=== PATIENT | male | born 1945 | race Caucasian/White ===

== ENCOUNTER 2019-03-24 19:16 | Observation (INO) | payer MEDICARE, OTHER, SELFPAY ==
[2019-03-24 19:43] VITALS: BP 111/80; PULSE 108; RESP 18; TEMP 36.6; O2SAT 99
--- NOTE | 2019-03-24 21:14 | ED.WEAKNESS ---
HPI - Weakness General Chief complaint: Weakness Stated complaint: weakness Time Seen by Provider: 03/24/19 21:14 Source: patient Mode of arrival: Wheelchair Limitations: no limitations History of Present Illness HPI Narrative: 73-year-old gentleman with diabetes and COPD with increasing weakness for the last week with multiple falls due to the global weakness. His daughter and grandchildren check on him regularly but he otherwise lives independently with home health care coming in. He notes multiple falls with left lower rib pain left knee has a bruise from a fall approximately 3 weeks ago left elbow has a large abrasion about a week old that has healed nicely without infection. He is not anticoagulated. It's unclear whether he has hit his head or not with any of these falls. He was seen on Thursday in urgent care they felt he was dehydrated but no additional imaging or diagnostic studies were performed. He has gotten significantly worse and has fallen at least 4 times today and is weak enough that he is having trouble eating sitting up in bed without assistance. Related Data Home Medications Medication Instructions Recorded Confirmed [FISH OIL] 1,000 mg PO BID #0 11/08/12 01/24/19 [MULTI VITAMIN] #0 11/08/12 01/24/19 atorvastatin [Lipitor] 20 mg PO HS #0 tab 11/08/12 01/24/19 naproxen sodium [Aleve] 220 mg PO PRN PRN #0 11/08/12 01/24/19 omeprazole 20 mg PO BID #0 09/18/16 01/24/19 vitamin B complex [B 1 tab PO QDAY #0 09/18/16 01/24/19 Complex-Vitamin B12] fluoxetine 10 mg capsule 10 mg PO DAILY 12/27/18 01/24/19 Allergies Allergy/AdvReac Type Severity Reaction Status Date / Time No Known Drug Allergies Allergy Unverified 01/24/19 14:14 fragrances Allergy Intermediate rash Uncoded 01/24/19 14:14 Review of Systems Review of Systems Narrative: Denies ? fever ? cold ? chills ? chest pain ? dyspnea ? orthopnea ? wheezing ? abdominal pain ? change to bowel or bladder habits ? nausea vomiting ? skin changes ? rashes He reports increasing global weakness, slight cough occasional sneeze, left lower rib pain with breathing, he has had a headache today which is highly unusual for him Patient History Medical History Chronic low back pain (Acute) Hypercholesterolemia (Acute) Hypertension (Acute) Major depressive disorder, single episode, severe without psychotic features (Acute) Surgical History History of bilateral knee replacement (Inactive) History of prostatectomy (Acute) Family History Father Cancer Alcohol abuse Social History marital status: details: 7 yrs ago number of children: 3 household members: none lives independently: Yes caregiver/support person: No housing: condominium pets and animals: No education level: high school 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. Grew up in an intact family. High school Education. 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 Smoking Status: Current every day smoker Substance Use Type: does not use Exam Narrative Exam Narrative: General: Frail appearing appearing, in no acute distress. Able to participate with history but most of the history is from his daughter. Well-nourished well-developed HEENT: Dry mucous membranes, normal sclera with reactive pupils, Neck: No JVD, supple Respiratory: Lungs are clear to auscultation, no wheezing no rales no rhonchi. Full and symmetrical air movement Cardiac: Regular rate and rhythm, loud harsh blowing holosystolic murmur 4/6, loudest along the left sternal border and radiating up to carotids and down into the abdomen no bruits Chest: Tender left lower ribs to palpation without bruising or palpable fracture Abdomen: Soft nontender good bowel tones, no flank pain Skin: Warm and dry, no rashes Neurologic: Grossly neurologically intact with no obvious asymmetries or abnormalities Extremities: well perfused, healing skin tear to the left elbow and forearm without infection. Healing bruise to left knee Psych: Cooperative Initial Vital Signs Initial Vital Signs: Vital Signs Temperature 97.9 F 03/24/19 19:43 Pulse Rate 108 H 03/24/19 19:43 Respiratory Rate 18 03/24/19 19:43 Blood Pressure 111/80 03/24/19 19:43 Pulse Oximetry 99 03/24/19 19:43 Course Orders Ordered: ED Orders 03/24/19 20:04 Complete Blood Count AUTO DIFF Stat Comprehensive Metabolic Panel Stat Magnesium Stat Troponin I Stat 03/24/19 22:02 CT head/brain wo con Stat Urinalysis and Microscopic Stat 03/24/19 22:37 XR ribs LT min 3V w CXR1V Stat 03/24/19 22:55 Blood Culture Stat Lactate (Lactic Acid) Stat Discontinued Medications Sodium Chloride (Normal Saline 0.9%) 1,000 mls @ 1,000 mls/hr IV BOLUS ONE Stop: 03/24/19 23:00 Last Infusion: 03/25/19 00:05 Dose: 0 mls/hr Documented by: Admin: 03/24/19 22:45 Dose: 1,000 mls/hr Documented by: ADRYAN Piperacillin/Tazobactam/Dextrose (Zosyn) 3.375 gm in 50 mls @ 100 mls/hr IV NOW ONE Stop: 03/24/19 23:07 Last Infusion: 03/25/19 00:00 Dose: 0 mls/hr Documented by: Admin: 03/24/19 23:26 Dose: 100 mls/hr Documented by: ADRYAN Sodium Chloride (Normal Saline 0.9%) 1,000 mls @ 1,000 mls/hr IV BOLUS ONE Stop: 03/25/19 03:46 Last Admin: 03/25/19 04:10 Dose: 1,000 mls/hr Documented by: JUSTYNA Vital Signs Vital signs: Vital Signs - 8 hr 03/24/19 21:49 03/24/19 22:29 03/24/19 23:10 Pulse Rate 90 101 H 95 H Respiratory Rate 16 22 22 Blood Pressure [Left Arm] 126/82 129/84 122/68 Pulse Oximetry 99 98 98 03/24/19 23:50 Pulse Rate 94 H Respiratory Rate 22 Blood Pressure [Left Arm] 117/77 Pulse Oximetry 96 MDM - Weakness Medical Records Attestation: I reviewed the patient's medical records. Lab Data Attestation: I reviewed the patient's lab results. Result diagrams: 03/24/19 20:04 03/24/19 20:04 Labs: Lab Results 03/24/19 03/24/19 03/24/19 Range/Units 20:04 20:04 22:55 WBC 12.3 H (4.5-11.0) X10^3/uL RBC 3.46 L (4.5-5.9) X10^6/uL Hgb 12.1 L (13.5-17.5) g/dL Hct 35.5 L (41-53) % MCV 102.8 H (80-100) fL MCH 35.1 H (26-34) PG MCHC 34.2 (30-36) % RDW 13.1 (11.6-14.8) % Plt Count 287 (150-400) X10^3/uL Neut % (Auto) 75.3 H (50-75) % Lymph % (Auto) 7.3 L (25-40) % [place] % (Auto) 16.8 H (3-14) % Eos % (Auto) 0.2 L (2-4) % Baso % (Auto) 0.4 (0-2) % Neut # (Auto) 9300 H (3566-3159) /uL Lymph # (Auto) 900 L (9408-4157) /uL [place] # (Auto) 2100 H (0-900) /uL Eos # (Auto) 0 (0-450) /uL Baso # (Auto) 0 (0-100) /uL Sodium 134 L (137-145) mmol/L Potassium 3.8 (3.4-5.1) mmol/L Chloride 95 L (98-107) mmol/L Carbon Dioxide 26 (22-32) mmol/L BUN 35 H (9-20) mg/dL Creatinine 1.60 H (0.66-1.25) mg/dL Estimated GFR 42.7 L (>60) mL/min BUN/Creatinine Ratio 21.9 (6-22) Glucose 126 H (80-110) mg/dL Lactate 1.0 (0.7-2.1) mmol/L Calcium 10.5 H (8.4-10.2) mg/dL Magnesium 1.4 L (1.6-2.3) mg/dL Total Bilirubin 0.6 (0.2-1.3) mg/dL AST 34 (17-59) IU/L ALT 43 (<50) IU/L Alkaline Phosphatase 65 (38-126) U/L Troponin I < 0.012 (0.01-0.034) ng/mL Total Protein 8.3 H (6.3-8.2) g/dL Albumin 4.4 (3.5-5.0) g/dL Globulin 3.9 (1.7-4.1) g/dL Albumin/Globulin Ratio 1.1 (1.0-2.8) Elevated white blood cell count 12.3 with left shift and significant bandemia Stable chronic renal insufficiency Mild hypo magnesemia at 1.4 Lactate of 1.0 Imaging Data Chest x-ray: Attestation: I personally reviewed and interpreted this imaging study as follows: My Impression: Chest x-ray does not suggest significant infiltrate or bacterial pneumonia. Cardiac silhouette is not significantly enlarged. Left-sided ribs 10 and 11 with fractures. No pneumothorax no hemothorax CT head: Radiologist Impression: per Dr Shlomo Edge No acute findings ECG Data Attestation: I personally reviewed and interpreted this ECG as follows: Interpretation: Normal sinus rhythm at a rate of [address] T wave changes. Normal axis normal intervals. [facility] Narrative Medical decision making narrative: 73-year-old gentleman presents with increasing weakness for the last week with multiple falls. With his significantly elevated white blood cell count and bandemia the probability of infection causing any overall weakness is significant. At this point the source of infection is unclear. Normal content cognitive function and no significant temperature as well as no nuchal rigidity or meningismus signs I do not suspect meningitis. There's no evidence of pneumonia or cellulitis. Unfortunately he did give us a urine sample but it was inadvertently discarded. We have been attempting to collect another urine sample. A straight cath was attempted and no urine was returned. An additional L of fluid will be given. At this point it has been 3 hours since antibiotics were given. He has a infection based on his elevated white count bandemia and increasing weakness of unknown origin. Has started broad-spectrum antibiotics. Probability of a urine source is high and we will continue to attempt to obtain a urine sample. He does need to be admitted and will contact the hospitalist services his primary care physician practices in [place]. He is otherwise hemodynamically stable without evidence of sepsis at this time. Discharge Plan Departure Patient Disposition: Admitted As Inpatient Clinical Impression: Weakness, Bandemia without diagnosis of specific infection Discharge Date/Time: 03/25/19 03:23 Admit Date/Time: 03/25/19 03:07 Admit Provider: Marcello Lucio
[2019-03-24 21:49] VITALS: BP 126/82; PULSE 90; RESP 16; O2SAT 99
--- NOTE | 2019-03-24 22:02 | DI.CT.S_ITS ---
PROCEDURE: CT HEAD/BRAIN WO CON INDICATIONS: Headache, increasing falls, trauma to head TECHNIQUE: Noncontrast 4.5 mm thick angled axial sections acquired from the foramen magnum to the vertex, with coronal and sagittal reformats. For radiation dose reduction, the following was used: automated exposure control, adjustment of mA and/or kV according to patient size. COMPARISON: None. FINDINGS: Image quality: Excellent. CSF spaces: Basal cisterns are patent. No extra-axial fluid collections. There is mild prominence of the ventricular system relative to prominence of the sulci reduced central line loss versus normal pressure hydrocephalus. Brain: No intracranial bleeds or masses. There is cerebral volume loss for age, with resultant ventricular and sulcal prominence. There are periventricular and deep white matter chronic small vessel ischemic changes. There is intracranial internal carotid artery and vertebral artery atherosclerosis. Skull and face: Calvarium and visualized facial bones appear intact, without suspicious lesions. Sinuses: Visualized sinuses and mastoids are clear. IMPRESSION: 1. No acute intracranial disease process. 2. Mild ventriculomegaly. Finding could be secondary to central volume loss versus normal pressure hydrocephalus. Please correlate with clinical data. Dictated by: Elva Moon MD, PhD on 03/25/2019 at 7:05 Approved by: Elva Moon MD, PhD on 03/25/2019 at 7:07
[2019-03-24 22:08] LABS: Add Manual Diff / Slide Review NO; Basophils Absolute Auto 0 /uL (0-100); Basophils Percent Auto 0.4 % (0-2); Eosinophils Absolute Auto 0 /uL (0-450); Eosinophils Percent Auto 0.2 % (2-4); Hematocrit 35.5 % (41-53); Hemoglobin 12.1 g/dL (13.5-17.5); Lymphocytes Absolute Auto 900 /uL (1100-4500); Lymphocytes Percent Auto 7.3 % (25-40); Mean Corpuscular HGB Conc 34.2 % (30-36); Mean Corpuscular Hemoglobin 35.1 PG (26-34); Mean Corpuscular Volume 102.8 fL (80-100); Monocytes Absolute Auto 2100 /uL (0-900); Monocytes Percent Auto 16.8 % (3-14); Neutrophils Absolute Auto 9300 /uL (1500-7000); Neutrophils Percent Auto 75.3 % (50-75); Platelet Count 287 X10^3/uL (150-400); Red Blood Cell Count 3.46 X10^6/uL (4.5-5.9); Red Cell Distribution Width 13.1 % (11.6-14.8); White Blood Cell Count 12.3 X10^3/uL (4.5-11.0)
[2019-03-24 22:14] LABS: Alanine Aminotransferase 43 IU/L (<50); Albumin 4.4 g/dL (3.5-5.0); Albumin Globulin Ratio 1.1 (1.0-2.8); Alkaline Phosphatase 65 U/L (38-126); Aspartate Aminotransferase 34 IU/L (17-59); BUN Creatinine Ratio 21.9 (6-22); Bilirubin Total 0.6 mg/dL (0.2-1.3); Blood Urea Nitrogen 35 mg/dL (9-20); Calcium 10.5 mg/dL (8.4-10.2); Carbon Dioxide 26 mmol/L (22-32); Chloride 95 mmol/L (98-107); Estimated Glomerular Filt Rate 42.7 mL/min (>60); Globulin 3.9 g/dL (1.7-4.1); Glucose 126 mg/dL (80-110); HEMOLYSIS < 15 (0-50); Magnesium 1.4 mg/dL (1.6-2.3); Potassium 3.8 mmol/L (3.4-5.1); Sodium 134 mmol/L (137-145); Total Protein 8.3 g/dL (6.3-8.2)
[2019-03-24 22:25] LABS: Troponin I < 0.012 ng/mL (0.01-0.034)
[2019-03-24 22:29] VITALS: BP 129/84; PULSE 101; RESP 22; O2SAT 98
--- NOTE | 2019-03-24 22:37 | DI.RAD.S_ITS ---
PROCEDURE: XR RIBS LT MIN 3V W CXR1V INDICATIONS: trauma, concern for sepsis TECHNIQUE: 2 views of the left ribs were acquired, along with a single view chest. COMPARISON: None. FINDINGS: Surgical changes and devices: None. Bones and chest wall: Mildly displaced, acute anterolateral left 11th rib fracture. Chronic appearing left sixth, seventh, eighth and 10th rib fractures noted. No suspicious bony lesions. Overlying soft tissues appear unremarkable. Lungs and pleura: No pleural effusions or pneumothorax. Lungs appear clear. Mediastinum: Mediastinal contours appear normal. Heart size is normal. IMPRESSION: Acute left 11th rib fracture. No acute cardiopulmonary disease process. Dictated by: Elva Moon MD, PhD on 03/25/2019 at 9:09 Approved by: Elva Moon MD, PhD on 03/25/2019 at 9:12
[2019-03-24] MEDS: SODIUM CHLORIDE 0.9% 1,000 ML 1000 ML IV (22:45)
[2019-03-24 23:10] VITALS: BP 122/68; PULSE 95; RESP 22; O2SAT 98
[2019-03-24] MEDS: PIPERACILLIN-TAZO 3.375 GM/50 ML FROZ.PIGGY IV (23:26)
[2019-03-24 23:50] VITALS: BP 117/77; PULSE 94; RESP 22; O2SAT 96
[2019-03-25] VITALS (11 sets, daily range): BP systolic 63–138; BP diastolic 44–76; PULSE 72–95; RESP 16–25; TEMP 36.2–37.4; O2SAT 94–99; BMI 27.4; BMI 25.5
--- NOTE | 2019-03-25 01:50 | PC.NURSE ---
Pt now reporting 7/10 pain ribs and back, 4/10 pain bilateral knees.
[2019-03-25] MEDS: SODIUM CHLORIDE 0.9% 1,000 ML 1000 ML IV (04:10)
--- NOTE | 2019-03-25 05:18 | P.HP_ITS ---
History of Present Illness History of Present Illness Date Patient Seen: 03/25/19 Time Patient Seen: 05:22 Chief complaint: weakness Narrative: Patient with PMH of HTN, DM 2T (diet controlled), neuropathy, GERD, prostate cancer (s/p prostatectomy, no chemo/radiation) Patient presented to the ED on 03/24/2019 out of concern for generalized weakness. The patient is unable to exactly note when symptoms have started. Reports associated symptoms of increased fatigue, exertional dyspnea, dizziness (especially with position change or with sudden turns), bilateral lower extremity weakness, and gait instability. Patient is known to have a lifelong history moderate to heavy ETOH use, most recently reports drinking 3 glasses of whiskey and 1-2 beers per day. Reports last drink on one week ago. Denies prior history of EtOH withdraw or seizures. Patient's diabetes is diet controlled. Reports using an antihypertensive agent (cannot recall name), which he stopped 3 days ago due to low blood pressure that was noted by nurse that comes to patient's house. Patient denies fever and chills, upper respiratory symptoms, chest pain, palpitations, syncopal events, abdominal pain, gastrointestinal distress, generalized myopathy or malaise. He has had a number of recurrent falls, which he is unable to quantify. He does note his falls to be frequent. They typ ically occur because his legs give out while he walks. Also reports falling while turning when in upright position or when changing positions due to dizziness and lightheadedness. Patient denies syncopal events. He reports being down at times for as long as 1 hour before he can get up. Patient reports good appetite and denies change in weight. He is constipated. He does have difficulty with urination and BPH symptoms. He denies history of recurrent UTIs. Currently complains of pain in his left lateral torso, lumbar spine, and bilateral feet. Has been using Tylenol for pain relief. Denies use of NSAIDs. ED Presentation & Work-Up VS. T 97.9F BP 111/80 HR 108 RR 18 SpO2 99% Labs, 03/24/182003 WBC 12.3 lactate 1.0 HGB 12.1 PLT 287 NA 134 K 3.8 mg 1.4 Cl 95 Ca 10.5 Alb 4.4 GLU 126 CO2 26 BUN 35 CR 1.6 GFR 42.7 T. BILI 0.6 AST 34 ALT 43 ALP 65 Trop < 0.012 Blood Cx collected in ED Received 2L NS bolus and Zosyn Patient History Medical History (Updated 03/25/19 @ 06:29 by JOSE ANGEL Luz) Alcohol dependence (Chronic) Chronic low back pain (Chronic) Hypercholesterolemia (Chronic) Hypertension (Chronic) Major depressive disorder, single episode, 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) Surgical History History of bilateral knee replacement (Inactive) History of prostatectomy (Acute) Family & Social History Family History Father Cancer Alcohol abuse Social History: household members Lives independently; however, grandson lives in a space below him. Prior Living Arrangements Apartment/Condo lives independently Yes caregiver/support person No Safety & Behavioral: Feels Safe in Current Yes Environment Been Physically Hurt or No Threatened By a Person Suicidal Ideation Description None Suicide Plan Description No Plan Tobacco & Substance use: Tobacco type cigars 2 daily, denies cigarette use Smoking Status Current every day smoker alcohol intake Lifelong, moderate to have a pattern of alcohol dependence. Currently drinks 3 glasses of whiskey and 1-2 beers daily by report. alcohol intake frequency 0-2 drinks per day Substance Use Type Uses MJ and CBD Meds Home Medications and Allergies Home Medications Medication Instructions Recorded Confirmed Type [FISH OIL] 1,000 mg PO BID #0 11/08/12 03/25/19 History [MULTI VITAMIN] #0 11/08/12 01/24/19 History atorvastatin [Lipitor] 20 mg PO HS #0 tab 11/08/12 03/25/19 History naproxen sodium [Aleve] 220 mg PO PRN PRN #0 11/08/12 03/25/19 History omeprazole 20 mg PO BID #0 09/18/16 03/25/19 History vitamin B complex [B 1 tab PO QDAY #0 09/18/16 03/25/19 History Complex-Vitamin B12] fluoxetine 10 mg capsule 20 mg PO DAILY 12/27/18 03/25/19 History Allergies Allergy/AdvReac Type Severity Reaction Status Date / Time No Known Drug Allergies Allergy Unverified 01/24/19 14:14 fragrances Allergy Intermediate rash Uncoded 11/25/19 14:14 Review of Systems Review of Systems ROS Unobtainable: All systems reviewed & are unremarkable except as noted in HPI and below Exam Vital Signs (past 8 hours): - 03/24/19 21:49 03/24/19 22:29 03/24/19 23:10 Temperature Pulse Rate 90 101 H 95 H Respiratory Rate 16 22 22 Blood Pressure Blood Pressure [Left Arm] 126/82 129/84 122/68 Pulse Oximetry 99 98 98 03/24/19 23:50 03/25/19 03:22 03/25/19 03:45 Temperature 98.4 F Pulse Rate 94 H 80 85 Respiratory Rate 22 25 H 18 Blood Pressure 123/63 119/76 Blood Pressure [Left Arm] 117/77 Pulse Oximetry 96 95 95 Oxygen Delivery Method Room Air Oxygen Flow Rate 0 Narrative Exam Narrative: Constitutional: NAD Neurologic: AOx3, no focal neurological deficits Head: NC, AT Eyes: PERRL, EOMI, no scleral icterus Ears: external ears normal, no otorrhea Nose: external nose normal, no rhinorrhea or epistaxis Throat: Dry MM, oropharynx w/o exudate Neck: no masses, lymphadenopathy, or JVD Chest / Respiratory: CTAB, diminished bases, on room air. No dyspnea or tachypnea at rest left lateral torso, rib level 9 to 10 + pain Heart / CV: S1S2, + murmur Abdomen / GI: round, NT, ND, + BS, no organomegaly : no suprapubic tenderness, no CVA Peripheral / Vascular: warm to touch, diminished DP pulse, no edema, sensation intact Musc: full ROM of upper and lower extremities, slight right foot drop Skin: multiple areas of ecchymoses on upper and lower extremities a different stages of healing Objective Labs Result Diagrams: 03/24/19 20:04 03/24/19 20:04 Labs: Laboratory Results - last 24 hr 03/24/19 03/24/19 03/24/19 20:04 20:04 22:55 WBC 12.3 H RBC 3.46 L Hgb 12.1 L Hct 35.5 L MCV 102.8 H MCH 35.1 H MCHC 34.2 RDW 13.1 Plt Count 287 Neut % (Auto) 75.3 H Lymph % (Auto) 7.3 L [place] % (Auto) 16.8 H Eos % (Auto) 0.2 L Baso % (Auto) 0.4 Neut # (Auto) 9300 H Lymph # (Auto) 900 L [place] # (Auto) 2100 H Eos # (Auto) 0 Baso # (Auto) 0 Sodium 134 L Potassium 3.8 Chloride 95 L Carbon Dioxide 26 BUN 35 H Creatinine 1.60 H Estimated GFR 42.7 L BUN/Creatinine Ratio 21.9 Glucose 126 H Lactate 1.0 Calcium 10.5 H Magnesium 1.4 L Total Bilirubin 0.6 AST 34 ALT 43 Alkaline Phosphatase 65 Troponin I < 0.012 Total Protein 8.3 H Albumin 4.4 Globulin 3.9 Albumin/Globulin Ratio 1.1 Assessment & Plan Assessment & Plan narrative: Patient is being admitted under observation status for generalized weakness. Generalized weakness, chronic condition, present on admission, active - Suspected to be multifactorial, in the setting of profound hypovolemia, orthostasis, anemia and ongoing ETOH use - Check CK level - IV fluids - Check orthostatic vitals - PT eval and treat Left rib fractures (ribs 9-10), acute, present on admission, active - CXR, final read pending - Incentive spirometer - Pain control: tylenol, lidocaine patch - Exertional dyspnea, not entirely clear if related to rib fracture, + murmur, may need to consider echo Macrocytic anemia, chronicity is not known, present on admission, active - Chronicity is not known, however suspected to be chronic, progressive in the setting of chronic ETOH use - Check iron studies, B12 and folate - No signs of active blood loss Hypovolemia, present on admission, active - Received 2L of IVF in ED Leukocytosis with bandemia, acute, present on admission, active - Patient was treated with Zosyn 3.375 x1 - Bands are not the most specific indicator of an infection, can also be elevated 2/2 seizure, toxic ingestions, metabolic abnormalities, inflammatory processes, and tissue damage Mild leukocytosis, no overt SIRS, lactate WNL. No specific organ dysfunction, hemodynamic decompensation or cognitive impairment. Will check PCT level. - Hold further antibiotics at this time - Blood cx collected in ED, results pending, to be followed - UA UDS Alcohol abuse, chronic condition, present on admission, active - No active symptoms of EtOH withdraw - Last reported drink 1 week ago - Will check ETOH level and UDS - Banana bag today - Started on MTW / Thiamine / Folate orally 03/26 - Replete electrolytes accordingly - Alcohol cessation strongly recommended Hypomagnesemia, likely chronic, present on admission, active - Suspected to be a sequela have ETOH use - Will received 2 g of magnesium in the banana bag infusion - Repeat magnesium in am, replete accordingly CKD III, chronic condition, present on admission, active - Baseline renal function is not known, records show Cr of 1.7 in 2017 - Repeat labs this am, patient has received 2L NS bolus in ED DNR. Designates his daughter, Jennifer, as a surrogate decision maker. Patient is unable to recall exact names of home medications, the list will be brought in this morning by his daughter. Order to verify patient's home med list in chart. VTE prophylaxis w/ SCDs Quality VTE Deep Vein Thrombosis/Pulmonary Embolism Present on Admission: No
--- NOTE | 2019-03-25 05:31 | PC.ADMIT ---
Safe hand off from ED. Patient arrived on unit via stretcher, and a slider board was used to transfer to the bed at 0345. Patient is AxOx3, complains of pain 4/10 in bilateral lower extremities, per patient, he has neuropathy. VSS, lung sounds clear bilaterally, patient has intermittent non productive cough and states he smokes 2 small cigars per day. Patient also complains of pain in ribs and back 6/10. When patient arrived on unit, skin check was done and documented, patient was found to be incontinent of stool. Patient said this has been happening for the last month, he thinks he needs to pass gas and passes stool also. Patient is very weak. Tried to get urine sample but patient could not urinate after 1 liter of fluid. Marcello notified. [address] Admission Note: The patient,Raymundo Oliver,73 y/o, was given written information regarding hospital policies, unit procedures and contact persons. Patient's smoking status: Current every day smoker. Vital Signs - 8 hr 03/24/19 21:49 03/24/19 22:29 03/24/19 23:10 Temperature Pulse Rate 90 101 H 95 H Respiratory Rate 16 22 22 Blood Pressure Blood Pressure [Left Arm] 126/82 129/84 122/68 Pulse Oximetry 99 98 98 03/24/19 23:50 03/25/19 03:22 03/25/19 03:45 Temperature 98.4 F Pulse Rate 94 H 80 85 Respiratory Rate 22 25 H 18 Blood Pressure 123/63 119/76 Blood Pressure [Left Arm] 117/77 Pulse Oximetry 96 95 95
[2019-03-25 05:52] LABS: Creatine Kinase 28 U/L (55-170)
[2019-03-25 06:04] LABS: Procalcitonin 0.21 ng/mL (<0.5)
[2019-03-25 06:20] LABS: RBC Urine None Seen (0-5/HPF)
[2019-03-25 06:23] LABS: Appearance Urine UA CLEAR; Bilirubin Urine UA NEGATIVE (NEGATIVE); Color Urine UA YELLOW; Glucose Urine UA NEGATIVE (Negative); Ketones Urine UA NEGATIVE (NEGATIVE); Leukocyte Esterase Urine UA NEGATIVE (NEGATIVE); Nitrite Urine UA NEGATIVE (Negative); Occult Blood Urine UA NEGATIVE (Negative); Protein Urine UA NEGATIVE (Negative); Urobilinogen Urine UA 0.2 E.U./dL (0.2)
[2019-03-25 06:29] LABS: Squamous Epithelial Cell Urine 0-1 /HPF (0-5/HPF); WBC Urine 0-1/HPF (0-5/HPF)
[2019-03-25 06:30] LABS: Bacteria Urine Occasional (0-1); Culture Indicated Urine Cult Not Indicated
[2019-03-25 07:15] LABS: Ur Creatinine Normal (Normal); Ur Specific Gravity Normal (Normal); Urine pH Normal (Normal)
[2019-03-25 07:16] LABS: UR Morphine/Opiate cutoff 300 Negative (Negative); Urine Amphetamines Negative (Negative); Urine Barbiturates Negative (Negative); Urine Benzodiazepines Negative (Negative); Urine Cocaine Negative (Negative); Urine MDMA Negative (Negative); Urine Methadone Negative (Negative); Urine Methamphetamines Negative (Negative); Urine Oxycodone Negative (Negative); Urine Phencyclidine Negative (Negative); Urine Tetrahydrocannabinol Positive (Negative); Urine Tricyclic Antidepressant Negative (Negative)
[2019-03-25 07:35] LABS: Add Manual Diff / Slide Review NO; Basophils Absolute Auto 100 /uL (0-100); Basophils Percent Auto 0.5 % (0-2); Eosinophils Absolute Auto 100 /uL (0-450); Eosinophils Percent Auto 0.5 % (2-4); Hematocrit 32.2 % (41-53); Lymphocytes Absolute Auto 1200 /uL (1100-4500); Lymphocytes Percent Auto 10.8 % (25-40); Mean Corpuscular HGB Conc 34.2 % (30-36); Mean Corpuscular Hemoglobin 34.9 PG (26-34); Mean Corpuscular Volume 101.9 fL (80-100); Monocytes Absolute Auto 1900 /uL (0-900); Monocytes Percent Auto 17.7 % (3-14); Neutrophils Absolute Auto 7700 /uL (1500-7000); Neutrophils Percent Auto 70.5 % (50-75); Platelet Count 263 X10^3/uL (150-400); Red Blood Cell Count 3.16 X10^6/uL (4.5-5.9); Red Cell Distribution Width 13.2 % (11.6-14.8)
[2019-03-25 07:48] LABS: Magnesium 1.4 mg/dL (1.6-2.3)
[2019-03-25 07:49] LABS: Alanine Aminotransferase 31 IU/L (<50); Albumin 3.6 g/dL (3.5-5.0); Alkaline Phosphatase 51 U/L (38-126); Aspartate Aminotransferase 24 IU/L (17-59); BUN Creatinine Ratio 23.3 (6-22); Bilirubin Total 0.6 mg/dL (0.2-1.3); Blood Urea Nitrogen 28 mg/dL (9-20); Calcium 9.2 mg/dL (8.4-10.2); Carbon Dioxide 22 mmol/L (22-32); Chloride 102 mmol/L (98-107); Estimated Glomerular Filt Rate 59.5 mL/min (>60); Globulin 3.6 g/dL (1.7-4.1); Glucose 92 mg/dL (80-110); HEMOLYSIS < 15 (0-50); Potassium 3.4 mmol/L (3.4-5.1); Sodium 135 mmol/L (137-145); Total Protein 7.2 g/dL (6.3-8.2)
[2019-03-25] MEDS: ACETAMINOPHEN 325 MG TABLET 650 MG PO ×2 (07:50→14:19)
[2019-03-25] MEDS: LIDOCAINE PATCH 1 EACH ADH..PATCH TOP (07:50)
[2019-03-25 07:53] LABS: Ethanol (ETOH) < 10 mg/dL
[2019-03-25] MEDS: OXYCODONE IR 5 MG TABLET PO ×2 (09:09→20:47)
[2019-03-25] MEDS: [UNRECOGNIZED DRUG - OTHER] IV (09:10)
[2019-03-25] MEDS: MAGNESIUM SULFATE IV (09:10)
[2019-03-25] MEDS: FOLIC ACID IV (09:10)
[2019-03-25] MEDS: MULTIVITAMIN IV (09:10)
[2019-03-25] MEDS: THIAMINE IV (09:10)
--- NOTE | 2019-03-25 12:09 | PT.IIE ---
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 No deficits noted except GRAYLING Mobility and Gait Pt uses FWW at home at all times since Nov 2018. Pt reports he has ongoing weakness for the past few months and has had home health PT to improve his mobility and stregnth since this Mar. Pt stated he was progressing very well with endurance and mobility and able to amb within home slowly, but somehow he got weaker and unable to mobilize since 03/16. Activities of Daily Living and IADL's Pt is mostly home bound. Was able to do ADLs with FWW independently. He is not driving and dtrs and her family assisted in house cleaning, grocery shopping and MD appts. Prior Functional Level (Other details) Pt has multiple falls within the past year. Social History Household Members none Living Arrangements Apartment/Condo Number of Floors (Floors) One Floor Number of Stairs To Enter/Railing? 2 CELESTINA with B rails + door threshold. Home Environment Standard Height Toilet,Walk in Shower Home Equipment Front Wheel Walker,Four Wheel Walker,Manual Wheelchair,Tub Transfer Bench,Grab Bars Near Toilet,Grab Bars In Shower Employment Status Retired Additional Social History Comment Patient is known to have a lifelong history moderate to heavy ETOH use, most recently reports drinking 3 glasses of whiskey and 1-2 beers per day. Reports last drink on one week ago. Pt lives alone in [place] and his grandson lives in a space below him. Pt has dtr and her family live closeby. M2 PT-IP Current Condition Start: 03/25/19 09:07 Freq: NEEDED Status: Active Protocol: Document 03/25/19 10:45 HH (Rec: 03/25/19 12:09 [email or web address]) Physical Therapy Current Condition Current Condition Evaluation Date 03/25/19 Treatment Diagnosis Acute left 11th rib fracture s /p fall, generalized weakness Onset Date a week ago Weight Bearing Status Weight Bearing Status Weight Bear as Tolerated M3 PT-IP Subjective Start: 03/25/19 09:07 Freq: NEEDED Status: Active Protocol: Document 03/25/19 10:45 HH (Rec: 03/25/19 12:09 [email or web address]) Subjective Physical Therapy Visit Type Type Initial Evaluation Visit Start Time 10:45 Visit Stop Time 10:32 Total Visit Minutes 47 Notes Pt's dtr Jennifer at bedside. Number of [facility] FAMILY MEMBER Visits 0 Physical Therapy Visit Comments Patient Comments My legs start to feel better and a little bit stronger. Patient Goals To get stronger before going home. Therapy Pain Assessment Pain When Pain Assessed During Mobility Pain Present Pain Present Pain Reported Location Bilateral Lower Leg Intensity 3 Scale Used Numeric (1 - 10) Description Acute Pain Behaviors Facial Grimacing Pain Management Techniques Timing of Activity with Medications M4 PT-IP Mobility and Gait Start: 03/25/19 09:07 Freq: NEEDED Status: Active Protocol: Document 03/25/19 10:45 HH (Rec: 03/25/19 12:09 [email or web address]) PT-Bed Mobility Assessment Supine to Sit Supine to Sit Contact Guard Assistance, Bedrails Scooting Scooting to Edge of Bed Contact Guard Assistance PT-Transfer Assessment Sit to and From Stand Sit to and from Stand Minimal Assistance,Moderate Assistance Equipment Transfer Assistive Device Gait Belt,Front Wheeled Walker Orthotic/Prosthetic Devices or Brace: No Transfers Transfer Destination Bed,Chair Transfer Technique amb with FWW Transfer Ability Level of Assist Minimal Assistance Comments Mobility Comments Pt was up in bed comfortably upon assessment. BP at 130s/ 70s HR80 s. Pt agreed to mobilize with PT. He completed supine to long sit and slowly pivot himself towards R side of EOB by using bed rails. Pt has difficulty scooting towards EOB and needed chair armrest to pull and unweight himself. He then stood up with mod A with gait belt at chest level. BP at 76/52 and pt reports lightheaded and weakness at B LEs. Pt completed stand step pivot to bedside chair but needed cues for walker management and hand placements on armrest for stand to sit. His BP went back to 148/73 HR 93 within 2 mins . Pt stood up again with min A this time and able to amb to BSC next to sink counter for toileting. Pt was able to bend down and brief management followed by stand to sit on it . BP at 63/44 HR 95 post ambulation but asymptomatic. He then stood up and amb back to his bedside chair with min A x 1. BP at 100/71 after 2 mins of rest and pt did appear SOB and fatigue after but he stated he feels fine. Call light within reach and educated pt to notify nursing staff for mobility. Gait Assessment Gait Gait Assistance Required: Minimum Assistance Distance (Feet) 8 Able to Maintain Weight Bearing Status Yes During Gait Assistive Devices Assistive Device Gait Belt,Front Wheeled Walker Orthotic/Prosthetic Devices or Brace: No Gait Deviations General Gait Pattern Decreased Stride Length, Decreased Feet Clearance, Flexed Trunk,Step-to Gait Factors Limiting Gait Function Factors Limiting Gait Function Decreased Activity Tolerance, Decreased Strength,Limited Range of Motion,Pain,Poor Balance,Poor Safety Awareness, Respiratory Distress Comments Gait Comments see mobility comment. pt amb with a step to gait with FWW slowly, along with decreased feet clearance and stride length. Stair Climbing Assessment Comments Stair Climbing Comments unable to assess PT-Balance Assessment Sitting Balance and Reactions Static Sitting Balance Ability Normal Dynamic Sitting Balance Ability Normal Standing Balance and Reactions Static Standing Balance Ability Good Dynamic Standing Balance Ability Fair Device Used FWW M5 PT-IP Objective Assessments Start: 03/25/19 09:07 Freq: NEEDED Status: Active Protocol: Document 03/25/19 10:45 (Rec: 03/25/19 12:09 [email or web address]) Orientation Orientation/Cognition Level of Alertness Alert Orientation Name,Age,Birthday,Month,Date, Year,Day of Week,Place, Situation Language Function Ability No Deficits Noted Safety Awareness Understands Safety Issues Memory Description No Deficits Noted Gross Range of Motion Upper Extremity ROM Assessment Within Functional Limits Lower Extremity ROM Assessment Within Functional Limits Strength Upper Extremity Strength Assessment Within Functional Limits Lower Extremity Strength Assessment Bilaterally Impaired Hip 3+/5 Knee 3/5 Ankle 3/5 Coordination Assessment Gross Coordination Gross Coordination WNL Sensation Assessment Sensation Gross Sensation Right LE Impaired,Left LE Impaired Light Touch Intact Proprioception (Position) Intact Comments Sensation Comments poor sensation noted to LT/ pressure at bottom of both feet and upper thighs. Muscle Tone Muscle Tone WNL Yes M6 PT-IP Treatment Start: 03/25/19 09:07 Freq: NEEDED Status: Active Protocol: Document 03/25/19 10:45 HH (Rec: 03/25/19 12:09 [email or web address]) Physical Therapy Treatment Exercises Exercises Ankle Pumps,Gluteal Sets,Quad Sets Education Education Provided Safety M7 PT-IP Assessment and Plan Start: 03/25/19 09:07 Freq: NEEDED Status: Active Protocol: Document 03/25/19 10:45 HH (Rec: 03/25/19 12:09 [email or web address]) PT Summary Assessment and Plan Potential Rehabilitation Potential Good Status of Condition at Evaluation Evolving Summary Impairments Pain,ROM,Strength,Balance, Sensation,Bed Mobility, Transfers,Gait,Activity Tolerance Assessment Summary Pt is a mod complexity admitted to for L 11th rib fx s/p fall and ongoing weakness. Etiologis is till unknown. Upon assessment, pt presents significant OHTN with postional changes (check mobility comments) but c/o minimal lightheadedness. Pt's Sat maintained >95% and HR appears to be at safe range. Pt currently has very low endurance who can only tolerate amb from bed to BSC and returned to chair with overall min A. In addition, pt lives alone with extensive hx of falls which will be very unsafe for him to be d/c home at this point. Dis with dtnoah Rodriguez and pt regarding skilled rehab to improve his mobility and strength once he is medically stable to be d/c Goals Bed Mobility Goal Contact Guard Assistance Transfer Goal Contact Guard Assistance,Front Wheeled Walker Gait Goal Contact Guard Assistance,Front Wheel Walker Gait Distance 50 Other Goals stair climbing x 3 with B rails + threhold if he goes home. Days to Meet Goals 5 Frequency of Treatment Frequency Of Treatment Once a Day Treatment Plan Physical Therapy Treatment Plan Bed Mobility Training,Transfer Training,Gait Training, Therapeutic Exercise,Balance Retraining,Discharge Planning, Hot or Cold Pack,Neuromuscular Re-ed Other Recommendations and Next Treatment transfers, bed mob, gait Focus training as anju CHECK OHTN Recommendations To Nursing Amount of Assist Needed 1 Person Assist Discharge Recommendations PT Discharge Recommendations SNF Rehab Transportation Needs at Discharge Wheelchair/Cabulance
--- NOTE | 2019-03-25 14:13 | DI.ECHO.S_ITS ---
[facility] +---------+ [facility] +---------+ : : [address] : : : : [id number] : : : : Phone: [phone]---------+ Echocardiogram Report + + :Name: MARIA LUZ WOLFF Study Date: 03/26/2019 Height: 66 in : :[facility] Weight: 158 lb : : Gender: Male BSA: 1.8 m2 : :: 1945 Age: 73 yrs BP: 101/66 mmHg: :Reason For Study: MURMUR : :Ordering Physician: Debo : :Hospitalist Performed By: Shukri Cobian : :Referring: KAUSHIK VOGEL : + + Interpretation Summary 1) Mild-moderate left ventricular hypertrophy (concentric) with normal left ventricular size, normal wall motion, and normal systolic function (EF 60- 65%). 2) Normal right ventricular size and function. 3) There is early severe aortic stenosis (mean gradient 38mmHg, valve area 0.96 cm2). Correlate clinically. 4) No prior Echo available for comparison. Recommend cardiology consult (outpatient acceptable if no or stable symptoms related to aortic stenosis). Procedure: A two-dimensional transthoracic echocardiogram with color flow and Doppler was performed. The study quality was technically difficult. There is no prior echocardiogram noted for this patient. Left Ventricle: The left ventricle is normal in size. There is mild-moderate concentric left ventricular hypertrophy. Left ventricular systolic function is normal. The ejection fraction is estimated to be 60-65%. Left ventricular wall motion is normal. Right Ventricle: The right ventricle is normal in size and function. Atria: There is mild biatrial enlargement. The interatrial septum is intact with no evidence for an atrial septal defect. Mitral Valve: The mitral valve leaflets appear mildly thickened, but open well. The mitral valve leaflets are mildly calcified. There is mild mitral annular calcification. There is no mitral regurgitation noted. Aortic Valve: The aortic valve is moderately calcified. The calculated aortic valve area is 0.96 cm2. The peak aortic velocity is 3.93 m/sec. The aortic valve mean gradient is 38 mmHg. There is severe aortic stenosis. No aortic regurgitation is present. Tricuspid Valve: The tricuspid valve is normal in structure and function. There is trace tricuspid regurgitation. The right ventricular systolic pressure is estimated to be at least 26 mmHg based on an estimated right atrial pressure of 8 mm Hg. Pulmonic Valve: The pulmonic valve is not well visualized. Great Vessels: The aortic root is normal size. The dimensions of the ascending aorta are normal. The pulmonary artery is normal size. The IVC is dilated (diameter is greater than 2.1 cm) yet it collapses greater than 50% with a sniff. This suggests a right atrial pressure of 8 mm Hg. Pericardium/ Pleura There is no pericardial effusion. There is no pleural effusion. MMode/2D Measurements & Calculations LVIDd: 4.5 cm LVOT diam: 2.1 cm LVIDs: 3.1 cm Ao root diam: 3.0 cm FS: 29.8 % IVSd: 1.4 cm LVPWd: 1.4 cm LV gentile. diameter/BSA (cm/m^2): 2.5 LV sys. diameter/BSA (cm/m^2): 1.7 LA A2 area: 20.3 cm2 RA long axis: 5.1 cm LA A4 area: 23.9 cm2 RA area: 17.8 cm2 LA length (vol): 6.1 cm RA vol: 53.0 ml LA vol: 68.1 ml RA : 29.3 ml/m2 LA vol index: 37.6 ml/m2 TAPSE: 2.2 cm Doppler Measurements & Calculations Ao V2 max: 392.6 cm/sec LVOT Max Toro: 109.4 cm/sec Ao V2 mean: 272.0 cm/sec LV V1 max P.8 mmHg Ao max P.7 mmHg LV V1 VTI: 24.3 cm Ao mean P.2 mmHg EDVIN(I,D): 1.0 cm2 Ao V2 VTI: 81.3 cm EDVIN(V,D): 0.96 cm2 sev ratio: 0.30 EDVIN indexed to BSA (cm^2/m^2): 0.57 MV E max toro: 75.2 cm/sec TR max toro: 212.3 cm/sec MV A max toro: 98.1 cm/sec TR max P.0 mmHg MV E/A: 0.77 Med Peak E' Toro: 6.4 cm/sec E/E' med: 11.7 Lat Peak E' Toro: 8.4 cm/sec E/E' lat: 8.9 E/e' average: 10.3 MV dec time: 0.20 sec SV(LVOT): 83.8 ml Reading Physician:01:24 PM
--- NOTE | 2019-03-25 15:06 | DIET.PN ---
Dietary Progress Note Assessment: 73y M admitted for weakness, frequent falls with hx of heavy etoh use, HTN, DM2 controlled c diet, and GERD referred to nutrition for weakness. Pt reports he has someone go out to get his groceries, has a friend make him homemade soups. Pt cannot stand at counter for more than a few minutes at a time r/t weakness, unsteadiness. Expresses concern with difficulty preparing own meals for adequate intake. Usual intake: B: 2 eggs, toast D: homemade soup Pt does not snack and tends to drink water, vitamin water, apple cider vinegar in tomato juice in addition to etoh (a few glasses of whiskey and beer). *Pt wt history is 79kg, weights this visit vary from 71kg to 77kg, please reweight pt for accurate number to assess any unintentional wt loss. HT: 167.6cm WT: 71.7kg (unknown if accurate, please reweight pt) BMI: 25.5 Labs:Mg 1.4 L, TCK 28 L MNA: 11 at risk Sammy: 18 Nutrition Diagnosis: difficulty with self management of diet r/t pt reported balance and weakness issues aeb pt stated he cannot stand at kitchen counter for more than a few minutes, has food and groceries delivered to home, known excessive daily etoh use (whiskey and beer). Interventions: Pt receiving general diet tray, recc changing to CCD as pt has DM2 managed by diet. Diet Order: general EER:1900kcal, 65g PRO (0.9g/kg), 2.2 L fluids Monitoring/Evaluations: watching labs, signs of etoh withdrawl
[2019-03-26] MEDS: SODIUM CHLORIDE 0.9% 1,000 ML 100 ML IV (00:40)
[2019-03-26] MEDS: OXYCODONE IR 5 MG TABLET PO ×2 (01:15→16:43)
[2019-03-26 04:10] VITALS: BP 116/64; PULSE 88; RESP 18; TEMP 36.9; O2SAT 93
[2019-03-26 05:54] LABS: Add Manual Diff / Slide Review NO; Basophils Absolute Auto 0 /uL (0-100); Basophils Percent Auto 0.5 % (0-2); Eosinophils Absolute Auto 100 /uL (0-450); Eosinophils Percent Auto 1.2 % (2-4); Hematocrit 29.6 % (41-53); Hemoglobin 10.2 g/dL (13.5-17.5); Lymphocytes Absolute Auto 1300 /uL (1100-4500); Lymphocytes Percent Auto 12.1 % (25-40); Mean Corpuscular HGB Conc 34.5 % (30-36); Mean Corpuscular Hemoglobin 35.2 PG (26-34); Mean Corpuscular Volume 102.2 fL (80-100); Monocytes Absolute Auto 1500 /uL (0-900); Monocytes Percent Auto 14.5 % (3-14); Neutrophils Absolute Auto 7600 /uL (1500-7000); Neutrophils Percent Auto 71.7 % (50-75); Platelet Count 293 X10^3/uL (150-400); White Blood Cell Count 10.5 X10^3/uL (4.5-11.0)
[2019-03-26 06:07] LABS: Blood Urea Nitrogen 25 mg/dL (9-20); Calcium 8.9 mg/dL (8.4-10.2); Carbon Dioxide 22 mmol/L (22-32); Chloride 104 mmol/L (98-107); Estimated Glomerular Filt Rate > 60.0 mL/min (>60); Glucose 103 mg/dL (80-110); HEMOLYSIS < 15 (0-50); Magnesium 1.9 mg/dL (1.6-2.3); Phosphorous 2.7 mg/dL (2.3-3.7); Potassium 3.6 mmol/L (3.4-5.1); Sodium 135 mmol/L (137-145)
[2019-03-26 06:35] LABS: TSH w/ Reflex to FT4 2.74 uIU/mL (0.47-4.68)
[2019-03-26 06:53] LABS: Vitamin B12 951 pg/mL (239-931)
[2019-03-26 08:10] VITALS: BP 125/86; PULSE 92; RESP 16; TEMP 37.4; O2SAT 95
[2019-03-26] MEDS: LIDOCAINE PATCH 1 EACH ADH..PATCH TOP (09:29)
[2019-03-26] MEDS: MULTIVITAMIN 1 TABLET 1 TAB PO (09:31)
[2019-03-26] MEDS: FOLIC ACID 1 MG TABLET PO (09:32)
[2019-03-26] MEDS: THIAMINE 100 MG TABLET PO (09:32)
[2019-03-26] MEDS: ACETAMINOPHEN 325 MG TABLET 650 MG PO (09:36)
[2019-03-26 12:39] VITALS: BP 101/66; BP 112/53; PULSE 92; RESP 16; TEMP 37.1; O2SAT 95
--- NOTE | 2019-03-26 13:37 | PC.NURSE ---
Day Shift- At [address] Viera to order pt's home medications where appropriate.
--- NOTE | 2019-03-26 14:51 | PT.IPTN ---
Current Diagnoses Weakness (03/25/19) Physical Therapy Treatment Note M2 PT-IP Current Condition Start: 03/25/19 09:07 Freq: NEEDED Status: Active Protocol: Document 03/25/19 10:45 HH (Rec: 03/25/19 12:09 HH [email or web address]) Physical Therapy Current Condition Current Condition Evaluation Date 03/25/19 Treatment Diagnosis Acute left 11th rib fracture s /p fall, generalized weakness Onset Date a week ago Weight Bearing Status Weight Bearing Status Weight Bear as Tolerated M3 PT-IP Subjective Start: 03/25/19 09:07 Freq: NEEDED Status: Active Protocol: Document 03/26/19 14:02 LJ (Rec: 03/26/19 14:51 LJ [id number]) Subjective Physical Therapy Visit Type Type Treatment Note Visit Start Time 14:02 Visit Stop Time 14:26 Total Visit Minutes 24 Physical Therapy Visit Comments Patient Comments States he needs to have a BM Therapy Pain Assessment Pain When Pain Assessed During Mobility Pain Present Pain Present Pain Reported M4 PT-IP Mobility and Gait Start: 03/25/19 09:07 Freq: NEEDED Status: Active Protocol: Document 03/26/19 14:02 LJ (Rec: 03/26/19 14:51 LJ [id number]) PT-Bed Mobility Assessment Supine to Sit Supine to Sit Contact Guard Assistance, Bedrails Scooting Scooting to Edge of Bed Minimal Assistance PT-Transfer Assessment Sit to and From Stand Sit to and from Stand Contact Guard Assistance, Minimal Assistance,Use of Upper Extremities Equipment Transfer Assistive Device Gait Belt,Front Wheeled Walker Orthotic/Prosthetic Devices or Brace: No Transfers Transfer Destination Chair,Toilet Transfer Technique amb with FWW Transfer Ability Level of Assist Contact Guard Assistance, Minimal Assistance,1 Person Assistance,Use of Upper Extremities Comments Mobility Comments Pt sitting in bed willing to get up and walk in room. CGA- Juan for supine to sit with head of bed elevated. Pt used bed rails and edge of mattress to assist himslef to sitting upright. Required MIN-ModA for scooting to edge of bed. CGA and cues for sit>stand at edge of bed. Gait Assessment Gait Gait Assistance Required: Minimum Assistance,1 Person Assist Distance (Feet) 25 Able to Maintain Weight Bearing Status Yes During Gait Assistive Devices Assistive Device Gait Belt,Front Wheeled Walker Orthotic/Prosthetic Devices or Brace: No Gait Deviations General Gait Pattern Decreased Stride Length, Decreased Feet Clearance, Flexed Trunk,Step-to Gait Factors Limiting Gait Function Factors Limiting Gait Function Decreased Activity Tolerance, Decreased Strength,Limited Range of Motion,Pain,Poor Balance,Poor Safety Awareness, Respiratory Distress Comments Gait Comments Pt requiring CGA-Juan for IV to ambulate to toilet. SBA to stand<>sit to/from toilet. Pt able to use grab bar in toilet to assist himself to standing . Able to perform brief management independently. Ambulated to chair CGA-Juan for IV. Stair Climbing Assessment Comments Stair Climbing Comments unable to assess M5 PT-IP Objective Assessments Start: 03/25/19 09:07 Freq: NEEDED Status: Active Protocol: Document 03/25/19 10:45 (Rec: 03/25/19 12:09 [email or web address]) Orientation Orientation/Cognition Level of Alertness Alert Orientation Name,Age,Birthday,Month,Date, Year,Day of Week,Place, Situation Language Function Ability No Deficits Noted Safety Awareness Understands Safety Issues Memory Description No Deficits Noted Gross Range of Motion Upper Extremity ROM Assessment Within Functional Limits Lower Extremity ROM Assessment Within Functional Limits Strength Upper Extremity Strength Assessment Within Functional Limits Lower Extremity Strength Assessment Bilaterally Impaired Hip 3+/5 Knee 3/5 Ankle 3/5 Coordination Assessment Gross Coordination Gross Coordination WNL Sensation Assessment Sensation Gross Sensation Right LE Impaired,Left LE Impaired Light Touch Intact Proprioception (Position) Intact Comments Sensation Comments poor sensation noted to LT/ pressure at bottom of both feet and upper thighs. Muscle Tone Muscle Tone WNL Yes M6 PT-IP Treatment Start: 03/25/19 09:07 Freq: NEEDED Status: Active Protocol: Document 03/26/19 14:02 ADRIAN (Rec: 03/26/19 14:51 [id number]) Physical Therapy Treatment Exercises Exercises Ankle Pumps,Gluteal Sets,Quad Sets Education Education Provided Safety Other Treatments Other Treatment Performed seated marching M7 PT-IP Assessment and Plan Start: 03/25/19 09:07 Freq: NEEDED Status: Active Protocol: Document 03/26/19 14:02 ADRIAN (Rec: 03/26/19 14:51 [id number]) PT Summary Assessment and Plan Potential Rehabilitation Potential Good Status of Condition at Evaluation Evolving Summary Impairments Pain,ROM,Strength,Balance, Sensation,Bed Mobility, Transfers,Gait,Activity Tolerance Assessment Summary Pt requires Juan for IV management and CGA-Juan for bed mobility and Sit<>stand. Ambulation is CGA and Juan for assist with IV. Pt is shakey and somewhat unsteady with gait. Will need to increase gait distance Goals Transfer Goal Contact Guard Assistance,Front Wheeled Walker Gait Goal Contact Guard Assistance,Front Wheel Walker Gait Distance 50 Other Goals stair climbing x 3 with B rails + threhold if he goes home. Days to Meet Goals 5 Frequency of Treatment Frequency Of Treatment Once a Day Treatment Plan Physical Therapy Treatment Plan Bed Mobility Training,Transfer Training,Gait Training, Therapeutic Exercise,Balance Retraining,Discharge Planning, Hot or Cold Pack,Neuromuscular Re-ed Other Recommendations and Next Treatment transfers, bed mob, gait Focus training as anju CHECK OHTN Recommendations To Nursing Amount of Assist Needed 1 Person Assist Discharge Recommendations PT Discharge Recommendations SNF Rehab
[2019-03-26 16:13] VITALS: BP 118/72; PULSE 80; RESP 16; TEMP 37.2; O2SAT 98
--- NOTE | 2019-03-26 18:49 | PC.NURSE ---
Pt given discharge instructions including follow up appointment information and referral needed to a commercial mortgage broker. Daughter Jennifer was present for instructions and both stated they understood. Jennifer had thought patient would discharge to a rehab facility but instead she will have [facility] increase patient's PT visits from twice a week to three times a week. Pt left facility in wheelchair with staff to daughter's car, whereby she will drive him home. Pt has his cell phone and his cell phone surg rn.
--- NOTE | 2019-03-26 18:53 | P.DS_ITS ---
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 He was found to be profoundly orthostatic BP dropping 50 points upon standing. The patient is unable to exactly note when symptoms have started. Reports associated symptoms of increased fatigue, exertional dyspnea, dizziness (especially with position change or with sudden turns), bilateral lower extrem ity weakness, and gait instability. Patient is known to have a lifelong history moderate to heavy ETOH use, most recently reports drinking 3 glasses of whiskey and 1-2 beers per day. Reports last drink on one week ago. Denies prior history of EtOH withdraw or seizures. Patient's diabetes is diet controlled. Reports using an antihypertensive agent (cannot recall name), which he stopped 3 days ago due to low blood pressure that was noted by nurse that comes to patient's house. Patient denies fever and chills, upper respiratory symptoms, chest pain, palpitations, syncopal events, abdominal pain, gastrointestinal distress, generalized myopathy or malaise. He has had a number of recurrent falls, which he is unable to quantify. He does note his falls to be frequent. They typically occur because his legs give out while he walks. Also reports falling while turning when in upright position or when changing positions due to dizziness and lightheadedness. Patient denies syncopal events. He reports being down at times for as long as 1 hour before he can get up. Patient reports good appetite and denies change in weight. He is constipated. He does have difficulty with urination and BPH symptoms. He denies history of recurrent UTIs. Discharge Providers Provider Date of admission: 03/25/19 03:07 Discharge Date: 03/26/19 Primary care physician: Marlon Fabian MD Consults: 03/25/19 04:27 Consult to Dietitian, Adult Routine Comment: Reason For Exam: Pt at risk for malnutrition 03/25/19 07:02 Consult to Physical Therapy Evaluate & Treat Comment: Generalized weakness, gait instability Physician Instructions: Evaluate and Treat Discharge provider: Chinmay Viera MD Summary Hospital Course Discharge Diagnosis: 1. Orthostatic hypotension, resolved 2. Severe aortic stenosis, new diagnosis 3. Alcohol dependency 4. Chronic peripheral neuropathy 5. Depression Hospital Course: Patient admitted due to weakness and dizziness and found to be severely orthostatic with a 50 point drop in his systolic BP. He was given IV hydration. Prior to discharge she has normal blood pressures and is not orthostatic upon standing and not feeling dizzy or lightheaded. He has recurrent falls associated with alcohol dependency and chronic peripheral neuropathy thought related to ETOH. His B12 level was above 900. Also x-ray did show acute left rib fracture and old left-sided fractures as well. Patient is advised to curtail or stop alcohol use. He was recently on antihypertensive which was discontinued due to low BP. He had transthoracic echo which showed early severe aortic stenosis, mean gradient 38, valve area 0.96. This is new diagnosis for him he has mild to moderate LVH with normal LV systolic function, normal RV size and function. He is advised to see court bailiff or sheriff for follow-up of aortic stenosis. Patient will follow-up with PCP within 1 week. Status at Discharge Cognitive/behavioral status at discharge: oriented Functional status at discharge: independent ambulation Overall status at discharge: patient is back to baseline Time Spent with Patient Time spent: Greater than 30 minutes Exam Vital Signs (past 8 hours): - 03/26/19 12:39 03/26/19 16:13 Temperature 98.7 F 98.9 F Pulse Rate 92 H 80 Pulse Rate [Orthostatic Sitting] 92 H Pulse Rate [Orthostatic Standing] 92 H Respiratory Rate 16 16 Blood Pressure 112/53 L 118/72 Blood Pressure [Orthostatic Sitting] 101/66 Blood Pressure [Orthostatic Standing] 112/53 L Pulse Oximetry 95 98 Oxygen Delivery Method Room Air Oxygen Flow Rate 0 Objective Labs Result Diagrams: 03/26/19 05:25 03/26/19 05:25 Labs: Laboratory Results - last 24 hr 03/26/19 03/26/19 03/26/19 05:25 05:25 05:25 WBC 10.5 RBC 2.90 L Hgb 10.2 L Hct 29.6 L MCV 102.2 H MCH 35.2 H MCHC 34.5 RDW 13.0 Plt Count 293 Neut % (Auto) 71.7 Lymph % (Auto) 12.1 L [place] % (Auto) 14.5 H Eos % (Auto) 1.2 L Baso % (Auto) 0.5 Neut # (Auto) 7600 H Lymph # (Auto) 1300 [place] # (Auto) 1500 H Eos # (Auto) 100 Baso # (Auto) 0 Sodium 135 L Potassium 3.6 Chloride 104 Carbon Dioxide 22 BUN 25 H Creatinine 1.00 Estimated GFR > 60.0 BUN/Creatinine Ratio 25.0 H Glucose 103 Calcium 8.9 Phosphorus 2.7 Magnesium 1.9 Vitamin B12 TSH 2.74 03/26/19 05:25 WBC RBC Hgb Hct MCV MCH MCHC RDW Plt Count Neut % (Auto) Lymph % (Auto) [place] % (Auto) Eos % (Auto) Baso % (Auto) Neut # (Auto) Lymph # (Auto) [place] # (Auto) Eos # (Auto) Baso # (Auto) Sodium Potassium Chloride Carbon Dioxide BUN Creatinine Estimated GFR BUN/Creatinine Ratio Glucose Calcium Phosphorus Magnesium Vitamin B12 951 H TSH Discharge Plan Discharge Plan Patient Disposition: Home Discharge comment: You were admitted due to falling and severe blood pressures with standing. X-ray showed new left 11th rib fracture. You have anemia and neuropathy due to alcohol use. Your ECHO showed severe narrowing of the aortic v alve (aortic stenosis). Your blood pressures are much better after IV fluids. Follow up with PCP. You need referral to court bailiff or sheriff for the aortic stenosis. Avoid alcohol use. Get up slowly from bed or chair. Continue home PT Discharge orders & Medications Prescriptions: Continued fluoxetine 10 mg capsule 20 mg PO DAILY RF: 0 atorvastatin [Lipitor] 20 MG tablet 20 mg PO HS Qty: 0 RF: 0 [FISH OIL] 1,000 mg PO BID Qty: 0 RF: 0 [MULTI VITAMIN] tablet 1 tab PO DAILY Qty: 0 RF: 0 vitamin B complex [B Complex-Vitamin B12] 1 EACH tablet 1 tab PO QDAY Qty: 0 RF: 0 omeprazole 20 MG tablet,delayed release (DR/EC) 20 mg PO BID Qty: 0 RF: 0 Discontinued naproxen sodium [Aleve] 220 MG tablet 220 mg PO PRN PRN (Reason: Pain, Mild) Qty: 0 RF: 0 Follow up/Referrals: Marlon Fabian MD [Primary Care Provider] - Diet/Activity/Treatments Diet: Diet as Tolerated Discharge Data Primary Care Provider: Marlon Fabina Attending Provider: Marcello Lucio Admit Date/Time: 03/25/19 03:07 Quality VTE Deep Vein Thrombosis/Pulmonary Embolism Present on Admission: No
--- NOTE | 2019-03-27 09:08 | CM.DANOTE ---
Addendum entered by Clari Hutchison LPN 03/27/19 10:49: Also faxed CM/DCP note, RN d/c note and [facility]'s assessment note. Addendum entered by Clari Hutchison LPN 03/27/19 10:39: Have spoken now with [facility]. She confirms pt is on service and, since admission status was OBS, resume orders will not be needed. Will fax the d/c summary to her now. Addendum entered by Clari Hutchison LPN 03/27/19 09:19: Case load triage dictated need to follow up this morning with plan to talk with pt and complete the DCP assessment process. A check in now shows that Dr. Viera did see pt yesterday late afternoon and d/c'd him to the home setting. He was taken home by his daughter Jennifer at about 1830. A review of the RN note at d/c reveals that pt does have [facility]. Will contact them this morningand send clinical notes re this stay. Have now spoken with Dr. Viera to discuss case. HH resume orders are obtained. Original Note: Discharge Planning/Care Management DCP: assessment: LATE ENTRY for 03/26 Case received yesterday: 03/26, EMR reviewed, discussed in Team Rounds. Pt is a 73 year old male who admitted yesterday 03/25 to care of hospitalist team. Payer: Medicare and [facility] Admission status: OBS: confirmed by UR RN Team. PCP: Marlon Fabian Pt also sees Dr[facility] Wang[facility] Did see pt in up mobilizing in the halls yesterday/03/26 late afternoon. PT was ordered. CM Discharge Assessment Start: 03/27/19 09:03 Freq: Status: Active Protocol: Document 03/27/19 09:04 ITV (Rec: 03/27/19 09:08 ITV [id number]) Discharge Planning Assessment Advance Directives? No History Provided By Medical Record Prior Living Arrangements Apartment/Condo Comment Per PT: pt's grandson lives in a separate space in same building Household Members none Type of transporation used prior to Relies on Others admit Comment pt's family drive him and also assist prn with shopping, cleaning etc. Comment pt is open to services with a HH agency: unclear at this time which one Review Status In Process
--- NOTE | 2019-03-30 10:01 | PC.NURSE ---
Late entry: NS stopped 03/25 0510 NS with Mag Sul, folic Acid, thiamine, Multivit stopped 03/25 2210 NS stopped 03/26 648
== END 2019-03-26 18:57 | disposition home or self-care (01) ==
LOC: ED 03-25 02:50 → AC 03-25 07:40
PROVIDERS: Internal Medicine; Admitting Provider Nurse Practitioner Gerontology; Emergency Provider Emergency Medicine; PCP Family Medicine; Visit Provider Nurse Practitioner Gerontology
DX: I95.1 Orthostatic hypotension (principal); R53.1 Weakness; E11.9 Type 2 diabetes mellitus without complications; J44.9 Chronic obstructive pulmonary disease, unspecified; W19.XXXA Unspecified fall, initial encounter; Z91.81 History of falling; F32.9 Major depressive disorder, single episode, unspecified; I10 Essential (primary) hypertension; E78.00 Pure hypercholesterolemia, unspecified; F10.20 Alcohol dependence, uncomplicated; Z72.0 Tobacco use; G89.29 Other chronic pain; M54.9 Dorsalgia, unspecified; I35.0 Nonrheumatic aortic (valve) stenosis; G62.9 Polyneuropathy, unspecified
CPT/HCPCS: 36415; 70450; 71101; 80048; 80053; 80305; 80320; 81001; 82550; 82607; 83605; 83735; 84100; 84145; 84443; 84484; 85025; 87040; 93005; 93010; 93306; 96361; 96365; 97116; 97162; 99285; G0378; J2543; J3475

== ENCOUNTER 2019-09-04 18:36 | Emergency (ER) | payer MEDICARE, OTHER, SELFPAY ==
[2019-06-09 15:37] VITALS: BMI 27.4
[2019-09-04] VITALS (15 sets, daily range): BP systolic 103–162; BP diastolic 59–79; PULSE 66–94; RESP 16–29; TEMP 36.8; O2SAT 95–100; BMI 25.8
--- NOTE | 2019-09-04 19:02 | ED_ITS ---
HPI - General Adult General Chief complaint: Weakness Stated complaint: not feeling well,wore out,trouble walking Time Seen by Provider: 09/04/19 18:50 Source: patient and family Mode of arrival: Family Vehicle Limitations: no limitations History of Present Illness HPI narrative: Patient is a 74-year-old male with a recent history of a aortic valve replacement of the [facility] also with a history of alcohol use here for evaluation of approximately 4 days of lightheadedness when he stands of and not feeling well and also having several falls at home. He states that he is not injured anything when he has fallen except for some skin lesions. States he is taking all of his medications. Denies any chest pain or shortness of breath. He states the lightheadedness comes when he goes from sitting to standing. He states that he is not having much symptoms when he goes from lying to sitting. He states that he is drinking water on a regular basis. He was told that if he ever felt like this he needed to come to the emergency department for evaluation. Related Data Home Medications Medication Instructions Recorded Confirmed [FISH OIL] 1,000 mg PO BID #0 11/08/12 06/09/19 [MULTI VITAMIN] 1 tab PO DAILY #0 11/08/12 06/09/19 atorvastatin [Lipitor] 20 mg PO HS #0 tab 11/08/12 06/09/19 omeprazole 20 mg PO BID #0 09/18/16 06/09/19 vitamin B complex [B 1 tab PO QDAY #0 09/18/16 06/09/19 Complex-Vitamin B12] Previous Rx's Medication Instructions Recorded fluoxetine 20 mg capsule 20 mg PO DAILY #30 cap 06/09/19 Allergies Allergy/AdvReac Type Severity Reaction Status Date / Time No Known Drug Allergies Allergy Verified 06/09/19 10:10 fragrances Allergy Intermediate rash Uncoded 06/09/19 10:10 Review of Systems Constitutional Constitutional: Reports fatigue, Denies fever(s), Reports frequent falls, Denies headache(s) and Reports malaise Eyes Eyes: Denies change in vision ENT Ears, Nose, Mouth, and Throat: Denies vertigo, Reports dizziness, Denies headache(s) and Reports disequilibrium Cardiovascular Cardiovascular: Denies chest pain, Denies syncope and Denies dyspnea Respiratory Respiratory: Denies dyspnea Gastrointestinal Gastrointestinal: Denies abdominal pain, Denies nausea and Denies vomiting Genitourinary Genitourinary: Denies dysuria Genitourinary: Denies dysuria Musculoskeletal Musculoskeletal: Denies arthralgias, Denies myalgias and Denies tingling Integumentary/Breasts Comments: Some skin lesions secondary to the falls. No active bleeding Neurologic Neurologic: Denies behavioral changes, Denies confusion, Denies vertigo, Reports dizziness, Denies syncope, Reports frequent falls, Denies headache(s), Denies convulsions, Denies tingling and Reports disequilibrium Psychiatric Psychiatric: Denies behavioral changes and Denies confusion Endocrine Endocrine: Reports fatigue Hematologic/Lymphatic Hematologic/Lymphatic: Denies easy bleeding and Denies easy bruising Allergic/Immunologic Allergic/Immunologic: Denies urticaria Patient History Medical History Alcohol dependence (Chronic) Chronic low back pain (Chronic) Hypercholesterolemia (Chronic) Hypertension (Chronic) Major depressive disorder, single episode, 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) Surgical History History of bilateral knee replacement (Inactive) History of prostatectomy (Acute) Family History Father Cancer Alcohol abuse Social History marital status: details: 7 yrs ago number of children: 3 household members: none lives independently: Yes caregiver/support person: No housing: [facility] pets and animals: No education level: high school occupational status: other current occupational exposures/hazards: No Smoking Status: Current some day smoker alcohol intake: current substance use type: marijuana during the past year weight has: remained stable well-balanced diet: daily or most days Type(s) of exercise: aerobic additional social history: Born and raised in [facility]. Grew up in an intact family. High school Education. 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 Smoking Status: Current some day smoker alcohol intake frequency: a few times a week Substance Use Type: does not use Exam Initial Vital Signs Initial Vital Signs: Vital Signs Temperature 98.3 F 09/04/19 18:48 Pulse Rate 77 09/04/19 18:48 Respiratory Rate 16 09/04/19 18:48 Blood Pressure 129/76 09/04/19 18:48 Pulse Oximetry 98 09/04/19 18:48 Const General: cooperative, comfortable and well developed Limitations: mental status not altered HENMT Head: normal to inspection and normocephalic Resp Effort & Inspection: normal respiratory effort Auscultation: clear to auscultation bilaterally Cardio Rate: regular rate Rhythm: regular rhythm Heart Sounds: murmur GI Inspection: non-distended Palpation: soft Skin Other: Multiple skin wounds on bilateral upper extremities. No active bleeding. None need any intervention here in the ER. Very stages of healing Neuro General: patient alert, patient awake and patient oriented x3 Cognition: normal cognition Speech: speech normal Motor: muscle tone normal throughout Sensory Exam: no sensory deficits noted Extrem General: normal to inspection and capillary refill normal Psych Appearance: grossly normal and well kempt Scores GCS Brendan coma scale eye opening: Spontaneous Brendan coma scale verbal response: Orientated Hugo coma scale motor response: Obey commands Brendan coma scale total score: 15 Course Orders Ordered: ED Orders 09/04/19 18:46 EKG-12 Lead Routine 09/04/19 19:02 Complete Blood Count AUTO DIFF Stat Comprehensive Metabolic Panel Stat Ethanol (ETOH) Stat Ketones (Beta-Hydroxybutyrate) Stat Lactate (Lactic Acid) Stat Lipase Stat Magnesium Stat NT-proBNP (BNP-Adult 18+) Stat Partial Thromboplastin Time Stat Phosphorous Stat Prothrombin Time INR Stat Troponin I Stat 09/04/19 19:13 XR chest 1V Stat Discontinued Medications Sodium Chloride (Normal Saline 0.9%) 1,000 mls @ 1,000 mls/hr IV BOLUS ONE Stop: 09/04/19 21:46 Last Infusion: 09/04/19 21:58 Dose: 0 mls/hr Documented by: Admin: 09/04/19 20:57 Dose: 1,000 mls/hr Documented by: TARAH Vital Signs Vital signs: Vital Signs - 8 hr 09/04/19 18:48 09/04/19 19:20 09/04/19 19:30 Temperature 98.3 F Pulse Rate 77 71 73 Pulse Rate [Orthostatic Lying] Pulse Rate [Orthostatic Sitting] Pulse Rate [Orthostatic Standing] Respiratory Rate 16 20 25 H Blood Pressure 129/76 Blood Pressure [Orthostatic Lying] Blood Pressure [Orthostatic Sitting] Blood Pressure [Orthostatic Standing] Pulse Oximetry 98 96 98 09/04/19 20:00 09/04/19 20:30 09/04/19 20:40 Temperature Pulse Rate 71 72 72 Pulse Rate [Orthostatic Lying] Pulse Rate [Orthostatic Sitting] Pulse Rate [Orthostatic Standing] Respiratory Rate 24 18 20 Blood Pressure 141/79 H 135/71 148/79 H Blood Pressure [Orthostatic Lying] Blood Pressure [Orthostatic Sitting] Blood Pressure [Orthostatic Standing] Pulse Oximetry 96 95 98 09/04/19 20:42 09/04/19 20:43 09/04/19 20:46 Temperature Pulse Rate 84 92 H Pulse Rate [Orthostatic Lying] 74 Pulse Rate [Orthostatic Sitting] 73 Pulse Rate [Orthostatic Standing] 94 H Respiratory Rate 29 H 23 Blood Pressure 116/67 103/59 L Blood Pressure [Orthostatic Lying] 148/79 H Blood Pressure [Orthostatic Sitting] 116/67 Blood Pressure [Orthostatic Standing] 103/59 L Pulse Oximetry 98 97 09/04/19 21:00 09/04/19 21:30 09/04/19 22:00 Temperature Pulse Rate 69 68 66 Pulse Rate [Orthostatic Lying] Pulse Rate [Orthostatic Sitting] Pulse Rate [Orthostatic Standing] Respiratory Rate 19 19 24 Blood Pressure 160/76 H 145/78 H 162/78 H Blood Pressure [Orthostatic Lying] Blood Pressure [Orthostatic Sitting] Blood Pressure [Orthostatic Standing] Pulse Oximetry 99 100 99 09/04/19 22:01 09/04/19 22:02 09/04/19 22:03 Temperature Pulse Rate 74 79 Pulse Rate [Orthostatic Lying] 67 Pulse Rate [Orthostatic Sitting] 70 Pulse Rate [Orthostatic Standing] 81 Respiratory Rate 17 20 Blood Pressure 153/70 H 155/69 H Blood Pressure [Orthostatic Lying] 162/78 H Blood Pressure [Orthostatic Sitting] 153/70 H Blood Pressure [Orthostatic Standing] 155/69 H Pulse Oximetry Medical Decision Making Medical Records Medical records reviewed: Yes I reviewed the patient's medical records. Lab Data Lab results reviewed: Yes I reviewed the patient's lab results. Result diagrams: 09/04/19 19:02 09/04/19 19:02 Labs: Lab Results 09/04/19 09/04/19 09/04/19 Range/Units 19:02 19:02 19:02 WBC 7.1 (4.5-11.0) X10^3/uL RBC 3.23 L (4.5-5.9) X10^6/uL Hgb 10.7 L (13.5-17.5) g/dL Hct 31.4 L (41-53) % MCV 97.2 (80-100) fL MCH 33.2 (26-34) PG MCHC 34.2 (30-36) % RDW 15.4 H (11.6-14.8) % Plt Count 224 (150-400) X10^3/uL Neut % (Auto) 50.5 (50-75) % Lymph % (Auto) 30.9 (25-40) % [place] % (Auto) 11.4 (3-14) % Eos % (Auto) 6.3 H (2-4) % Baso % (Auto) 0.9 (0-2) % Neut # (Auto) 3600 (9321-8759) /uL Lymph # (Auto) 2200 (0935-8650) /uL [place] # (Auto) 800 (0-900) /uL Eos # (Auto) 400 (0-450) /uL Baso # (Auto) 100 (0-100) /uL PT 11.2 (10.1-12.7) SECONDS INR 1.0 (0.9-1.3) APTT 32 (26.4-36.2) SECONDS Sodium 139 (137-145) mmol/L Potassium 4.4 (3.4-5.1) mmol/L Chloride 109 H (98-107) mmol/L Carbon Dioxide 20 L (22-32) mmol/L BUN 27 H (9-20) mg/dL Creatinine 1.13 (0.66-1.25) mg/dL Estimated GFR > 60.0 (>60) mL/min BUN/Creatinine Ratio 23.9 H (6-22) Glucose 87 (80-110) mg/dL Lactate (0.7-2.1) mmol/L Calcium 9.6 (8.4-10.2) mg/dL Phosphorus (2.3-3.7) mg/dL Magnesium (1.6-2.3) mg/dL Total Bilirubin 0.3 (0.2-1.3) mg/dL AST 51 (17-59) IU/L ALT 23 (<50) IU/L Alkaline Phosphatase 45 (38-126) U/L Troponin I (0.01-0.034) ng/mL NT-Pro-B Natriuret Pep (<125) pg/mL Total Protein 6.9 (6.3-8.2) g/dL Albumin 3.9 (3.5-5.0) g/dL Globulin 3.0 (1.7-4.1) g/dL Albumin/Globulin Ratio 1.3 (1.0-2.8) Lipase (23-300) U/L Ethyl Alcohol 203 H ( - 10) mg/dL Ketones (<0.27) mmol/L 09/04/19 09/04/19 09/04/19 Range/Units 19:02 19:02 21:15 WBC (4.5-11.0) X10^3/uL RBC (4.5-5.9) X10^6/uL Hgb (13.5-17.5) g/dL Hct (41-53) % MCV (80-100) fL MCH (26-34) PG MCHC (30-36) % RDW (11.6-14.8) % Plt Count (150-400) X10^3/uL Neut % (Auto) (50-75) % Lymph % (Auto) (25-40) % [place] % (Auto) (3-14) % Eos % (Auto) (2-4) % Baso % (Auto) (0-2) % Neut # (Auto) (7216-6153) /uL Lymph # (Auto) (1819-3015) /uL [place] # (Auto) (0-900) /uL Eos # (Auto) (0-450) /uL Baso # (Auto) (0-100) /uL PT (10.1-12.7) SECONDS INR (0.9-1.3) APTT (26.4-36.2) SECONDS Sodium (137-145) mmol/L Potassium (3.4-5.1) mmol/L Chloride (98-107) mmol/L Carbon Dioxide (22-32) mmol/L BUN (9-20) mg/dL Creatinine (0.66-1.25) mg/dL Estimated GFR (>60) mL/min BUN/Creatinine Ratio (6-22) Glucose (80-110) mg/dL Lactate 2.9 H 2.0 (0.7-2.1) mmol/L Calcium (8.4-10.2) mg/dL Phosphorus 3.1 (2.3-3.7) mg/dL Magnesium 1.8 (1.6-2.3) mg/dL Total Bilirubin (0.2-1.3) mg/dL AST (17-59) IU/L ALT (<50) IU/L Alkaline Phosphatase (38-126) U/L Troponin I < 0.012 (0.01-0.034) ng/mL NT-Pro-B Natriuret Pep 296 H (<125) pg/mL Total Protein (6.3-8.2) g/dL Albumin (3.5-5.0) g/dL Globulin (1.7-4.1) g/dL Albumin/Globulin Ratio (1.0-2.8) Lipase 131 (23-300) U/L Ethyl Alcohol ( - 10) mg/dL Ketones 0.20 (<0.27) mmol/L Imaging Data Chest x-ray: Radiologist's Impression: [address] [address] XRay Report Signed Patient: Raymundo Oliver R#: [id number] : 7Acct:[id number] Age/Sex: 74 / MDate of Service: 09/04/19 Loc: ED Accession Number: [id number] Procedure: XR chest 1V Ordering Provider: Oliverio Wayne D.O. PROCEDURE: XR CHEST 1V INDICATIONS: Weakness, aortic valve replacement, eval for pneumonia TECHNIQUE: One view of the chest was acquired. COMPARISON: None. FINDINGS: Surgical changes and devices: None. Lungs and pleura: Lungs are clear. No pleural effusions or pneumothorax. Mediastinum: Mediastinal contours appear normal. Heart size is normal. Bones and chest wall: No suspicious bony lesions. Overlying soft tissues appear unremarkable. IMPRESSION: No acute process. Dictated by: Johnny Diaz M.D. on 09/04/2019 at 19:28 Approved by: Johnny Diaz M.D. on 09/04/2019 at 19:29 ECG Data Attestation: I personally reviewed and interpreted this ECG as follows: Prior ECG tracings: not available for review Interpretation: Sinus rhythm Ventricular rate is 71 Normal axis Normal QRS Normal QTC No ST T wave changes MDM Narrative Medical decision making narrative: Patient did have positive orthostatic blood pressures. He was given fluids which resolved the issues. His alcohol level was also elevated. He has fairly vague symptoms. Had a discussion with him and his family who is at bedside. I suspect that most of his symptoms are related to his alcohol use. Apparently the patient does drink on a daily basis. I suspect that most of his symptoms are related to this. Had a long discussion with him regarding this. Patient's family at bedside agree that they think that his alcohol use is causing a lot of his presenting symptoms today. He does have follow-up our discussion with his restorative rehab aide. I feel that we can hold on further workup for now. He was given return precautions and follow-up instructions. He expressed understanding and agreement. Discharge Plan Departure Patient Disposition: Home Clinical Impression: Orthostasis Alcohol intoxication Qualifiers: Complication of substance-induced condition: with unspecified complication Qualified Code(s): F10.929 - Alcohol use, unspecified with intoxication, unspecified Instructions: Alcohol Use Disorder, DI for Orthostatic Hypotension Activity Restrictions/Additional Instructions: No driving for the next 24 hours or in the future if you drink alcohol. Be sure to keep all of your scheduled medical appointments. Continue all of your medications as directed. Recommend that tomorrow you contact your heart doctor for follow-up. I do recommend that you consider cutting back/stopping your alcohol use. Contact your primary provider for follow-up as well. Return to [facility] emergency department for any new or worsening symptoms Prescriptions: No Action fluoxetine [Prozac] 20 mg capsule 20 mg PO DAILY Qty: 30 RF: 3 atorvastatin [Lipitor] 20 MG tablet 20 mg PO HS Qty: 0 RF: 0 [FISH OIL] 1,000 mg PO BID Qty: 0 RF: 0 [MULTI VITAMIN] tablet 1 tab PO DAILY Qty: 0 RF: 0 vitamin B complex [B Complex-Vitamin B12] 1 EACH tablet 1 tab PO QDAY Qty: 0 RF: 0 omeprazole 20 MG tablet,delayed release (DR/EC) 20 mg PO BID Qty: 0 RF: 0 Referrals: Marlon Fabian MD [Primary Care Provider] -
[2019-09-04 19:12] LABS: Add Manual Diff / Slide Review NO; Basophils Absolute Auto 100 /uL (0-100); Basophils Percent Auto 0.9 % (0-2); Eosinophils Absolute Auto 400 /uL (0-450); Eosinophils Percent Auto 6.3 % (2-4); Hematocrit 31.4 % (41-53); Hemoglobin 10.7 g/dL (13.5-17.5); Lymphocytes Absolute Auto 2200 /uL (1100-4500); Lymphocytes Percent Auto 30.9 % (25-40); Mean Corpuscular HGB Conc 34.2 % (30-36); Mean Corpuscular Hemoglobin 33.2 PG (26-34); Mean Corpuscular Volume 97.2 fL (80-100); Monocytes Absolute Auto 800 /uL (0-900); Monocytes Percent Auto 11.4 % (3-14); Neutrophils Absolute Auto 3600 /uL (1500-7000); Neutrophils Percent Auto 50.5 % (50-75); Platelet Count 224 X10^3/uL (150-400); Red Blood Cell Count 3.23 X10^6/uL (4.5-5.9); Red Cell Distribution Width 15.4 % (11.6-14.8); White Blood Cell Count 7.1 X10^3/uL (4.5-11.0)
--- NOTE | 2019-09-04 19:13 | DI.RAD.S_ITS ---
PROCEDURE: XR CHEST 1V INDICATIONS: Weakness, aortic valve replacement, eval for pneumonia TECHNIQUE: One view of the chest was acquired. COMPARISON: None. FINDINGS: Surgical changes and devices: None. Lungs and pleura: Lungs are clear. No pleural effusions or pneumothorax. Mediastinum: Mediastinal contours appear normal. Heart size is normal. Bones and chest wall: No suspicious bony lesions. Overlying soft tissues appear unremarkable. IMPRESSION: No acute process. Dictated by: Johnny Diaz M.D. on 09/04/2019 at 19:28 Approved by: Johnny Diaz M.D. on 09/04/2019 at 19:29
[2019-09-04 19:22] LABS: Prothrombin Time 11.2 SECONDS (10.1-12.7)
[2019-09-04 19:25] LABS: PTT Partial Thromboplastin Tim 32 SECONDS (26.4-36.2)
[2019-09-04 19:26] LABS: Lactate (Lactic Acid) 2.9 mmol/L (0.7-2.1); Lipase 131 U/L (23-300); Magnesium 1.8 mg/dL (1.6-2.3); Phosphorous 3.1 mg/dL (2.3-3.7)
[2019-09-04 19:27] LABS: Alanine Aminotransferase 23 IU/L (<50); Albumin 3.9 g/dL (3.5-5.0); Albumin Globulin Ratio 1.3 (1.0-2.8); Alkaline Phosphatase 45 U/L (38-126); Aspartate Aminotransferase 51 IU/L (17-59); BUN Creatinine Ratio 23.9 (6-22); Bilirubin Total 0.3 mg/dL (0.2-1.3); Blood Urea Nitrogen 27 mg/dL (9-20); Calcium 9.6 mg/dL (8.4-10.2); Carbon Dioxide 20 mmol/L (22-32); Chloride 109 mmol/L (98-107); Estimated Glomerular Filt Rate > 60.0 mL/min (>60); Ethanol (ETOH) 203 mg/dL; Glucose 87 mg/dL (80-110); HEMOLYSIS < 15 (0-50); Potassium 4.4 mmol/L (3.4-5.1); Sodium 139 mmol/L (137-145); Total Protein 6.9 g/dL (6.3-8.2)
[2019-09-04 19:40] LABS: NT-proBNP (BNP-Adult 18+) 296 pg/mL (<125); Troponin I < 0.012 ng/mL (0.01-0.034)
[2019-09-04] MEDS: SODIUM CHLORIDE 0.9% 1,000 ML 1000 ML IV (20:57)
[2019-09-04 21:05] LABS: Reflexed Lactate in 2 Hours Y
== END 2019-09-04 22:26 | disposition home or self-care (01) ==
PROVIDERS: Emergency Provider Emergency Medicine; PCP Family Medicine
DX: I95.1 Orthostatic hypotension (principal); F10.129 Alcohol abuse with intoxication, unspecified; Y90.7 Blood alcohol level of 200-239 mg/100 ml; Z95.5 Presence of coronary angioplasty implant and graft
CPT/HCPCS: 36415; 71045; 80053; 80320; 82009; 83605; 83690; 83735; 83880; 84100; 84484; 85025; 85610; 85730; 93005; 93010; 96360; 99284

== ENCOUNTER → 2019-11-22 14:42 | Outpatient (CLI) | payer MEDICARE, OTHER, SELFPAY ==
[2019-06-09 15:37] VITALS: BMI 27.4
== END ==
PROVIDERS: PCP Family Medicine; Referring Provider Specialist; Visit Provider Specialist
DX: C61 Malignant neoplasm of prostate (principal); N39.42 Incontinence without sensory awareness; R39.9 Unspecified symptoms and signs involving the genitourinary system; Z80.42 Family history of malignant neoplasm of prostate
CPT/HCPCS: 36415; 51798; 81002; 84153; 99214

== ENCOUNTER → 2021-06-11 10:38 | Outpatient (CLI) | payer MEDICARE, SELFPAY ==
[2019-06-09 15:37] VITALS: BMI 27.4
[2021-06-11 11:15] LABS: COVID19 -Nasal RAPID Negative (Negative)
== END ==
PROVIDERS: PCP Family Medicine; Visit Provider Specialist
DX: Z20.822 Contact with and (suspected) exposure to COVID-19 (principal)
CPT/HCPCS: 87635; C9803

== ENCOUNTER 2021-06-14 06:08 | Day surgery (SDC) | payer MEDICARE, SELFPAY ==
[2019-06-09 15:37] VITALS: BMI 27.4
[2021-06-12 15:12] VITALS: BMI 27.4
[2021-06-14 07:00] VITALS: BP 144/74; PULSE 60; RESP 16; TEMP 36.8; O2SAT 98; BMI 27.4
[2021-06-14] MEDS: LACTATED RINGERS 1,000 ML 42 ML IV (07:31)
--- NOTE | 2021-06-14 07:31 | P.OP.PRE_ITS ---
Pre-operative Note COVID-19 Criteria for continued procedure: Increased loss of function, Deterioration of the patient's condition or overall health, Delay expected to result in less- positive ultimate med/surg outcome and Non-surgical alternatives not available or appropriate per current SOC Interval Note History & Physical reviewed/Exam performed by Physician: Yes Changes to H&P: No
[2021-06-14] MEDS: CEFAZOLIN 2 GM/20 ML SYRINGE IV (08:00)
--- NOTE | 2021-06-14 08:19 | SUR.OPER ---
Lithotomy on padded OR bed, head on pillow, arms secured on padded arm boards at <90 degrees abduction. Legs secured in padded yellow fins stirrups. Gel pads placed under b/l hands & wrists.
[2021-06-14] MEDS: ONABOTULINUMTOXINA 200 UNIT VIAL INJ (08:25)
[2021-06-14] MEDS: BELLADONNA/OPIUM SUPPOSITORIES 1 EACH PR (08:31)
[2021-06-14 08:41] VITALS: BP 138/75; PULSE 68; RESP 11; TEMP 36.6; O2SAT 96
[2021-06-14 08:46] VITALS: BP 150/73; PULSE 69; RESP 13; O2SAT 96
--- NOTE | 2021-06-14 08:48 | PM.OP.1 ---
Operative Date/Time/Diagnoses Date of procedure: 06/14/21 Time of procedure: 08:30 Pre-op diagnosis: Urge incontinence Post-op diagnosis: same Procedure & Clinicians Procedure: 1. Cystoscopy/Botox injection. Same procedure as scheduled: Yes Indications: 1. Urge incontinence. 2. Failure medical therapy. Surgeon: Sergey Burgos Click Yes if Unassisted: Yes Anesthesia Type: General Operative Notes Findings: 1. Urethral-normal caliber without annular stricture or lesion. 2. External sphincter-partially gaping with normal overlying urothelium. 3. Prostate-surgically absent. 4. Bladder-bladder neck is patent. Ureteral orifices are normal position bilaterally with clear efflux. At least 2+ trabeculation. Closure Type: not applicable Specimen(s): none sent Prosthetic devices, grafts, tissues, transplants, or devices: 200 units botulinum A Estimated Blood Loss (mL): 0 Blood products transfused: none Procedure in detail: Patient was positioned supine was administered general anesthesia. He was then repositioned semi lithotomy the lower abdomen, genitalia, and groin were then prepped and draped in sterile fashion. The laser endoscope was not passable it urinary tract with the findings as described above. Aliquots of approximately 0.5 cc were then injected into the muscularis of the bladder in various areas and distributed across the bladder base posteriorly and bilaterally. A total of 10 cc of solution were injected. Bladder is then drained completely in laser endoscope was removed. Patient was then repositioned in supine, was awakened, then was transferred to a gurney in stable condition. Complications: none Post-operative Condition: stable Disposition: PACU Plan for aftercare: Discharge home
[2021-06-14 08:52] VITALS: BP 164/83; PULSE 73; RESP 14; O2SAT 97
[2021-06-14 08:54] LABS: Appearance Urine UA SL CLOUDY; Bilirubin Urine UA NEGATIVE (NEGATIVE); Color Urine UA YELLOW; Glucose Urine UA NEGATIVE (Negative); Ketones Urine UA NEGATIVE (NEGATIVE); Leukocyte Esterase Urine UA NEGATIVE (NEGATIVE); Nitrite Urine UA NEGATIVE (Negative); Occult Blood Urine UA TRACE-INTACT (Negative); Protein Urine UA NEGATIVE (Negative); Specific Gravity Urine UA 1.015 (1.000-1.035); Urobilinogen Urine UA 0.2 E.U./dL (0.2); pH Urine UA 5.5 (4.5-8.0)
[2021-06-14 08:56] VITALS: BP 153/81; PULSE 71; RESP 10; O2SAT 96
--- NOTE | 2021-06-14 08:57 | SUR.PHASEI ---
Per Dr Burgos, patient may restart Elaquis on ThursdayJune 15 at normal time and dosage.
[2021-06-14 09:03] LABS: Bacteria Urine Few (2-10); RBC Urine 1-5/HPF (0-5/HPF); Squamous Epithelial Cell Urine 0-1 /HPF (0-5/HPF); WBC Urine 0-1/HPF (0-5/HPF)
[2021-06-14 09:34] VITALS: BP 154/87; PULSE 65; RESP 20; TEMP 36.6; O2SAT 97
--- NOTE | 2021-06-14 09:36 | SUR.PHASEII ---
Patient ambulatory with walker to bathroom to void without difficulty. Home with daughter Jennifer in stable condition. No pain or nausea on discharge.
== END 2021-06-14 09:37 | disposition home or self-care (01) ==
PROVIDERS: PCP Family Medicine; Referring Provider Specialist; Visit Provider Specialist
PROC: (CPT 52287; principal; 2021-06-14 07:45)
DX: N39.41 Urge incontinence (principal); R35.0 Frequency of micturition; N32.89 Other specified disorders of bladder; I69.359 Hemiplegia and hemiparesis following cerebral infarction affecting unspecified side; I69.398 Other sequelae of cerebral infarction; I10 Essential (primary) hypertension; F17.200 Nicotine dependence, unspecified, uncomplicated; Z90.79 Acquired absence of other genital organ(s); Z85.46 Personal history of malignant neoplasm of prostate; Z80.42 Family history of malignant neoplasm of prostate
CPT/HCPCS: 52287; 81001; 87086; J0585; J0690; J2250; J2405; J2704; J3010

== ENCOUNTER → 2023-08-25 07:24 | Outpatient (ROUT) | payer MEDICARE, SELFPAY ==
[2019-06-09 15:37] VITALS: BMI 27.4
[2023-08-25 08:02] LABS: Add Manual Diff / Slide Review NO; Basophils Absolute Auto 100 /uL (0-100); Basophils Percent Auto 0.7 % (0-2); Eosinophils Absolute Auto 600 /uL (0-450); Eosinophils Percent Auto 6.1 % (2-4); Hematocrit 38.3 % (41-53); Hemoglobin 13.1 g/dL (13.5-17.5); Lymphocytes Absolute Auto 1600 /uL (1100-4500); Lymphocytes Percent Auto 16.4 % (25-40); Mean Corpuscular HGB Conc 34.2 % (30-36); Mean Corpuscular Volume 90.6 fL (80-100); Monocytes Absolute Auto 800 /uL (0-900); Monocytes Percent Auto 7.6 % (3-14); Neutrophils Absolute Auto 7000 /uL (1500-7000); Neutrophils Percent Auto 69.2 % (50-75); Platelet Count 241 X10^3/uL (150-400); Red Blood Cell Count 4.23 X10^6/uL (4.5-5.9); Red Cell Distribution Width 13.7 % (11.6-14.8)
[2023-08-25 08:25] LABS: Alanine Aminotransferase 23 IU/L (<50); Albumin 3.5 g/dL (3.5-5.0); Albumin Globulin Ratio 1.3 (1.0-2.8); Alkaline Phosphatase 58 U/L (38-126); Aspartate Aminotransferase 23 IU/L (17-59); BUN Creatinine Ratio 18.6 (6-22); Bilirubin Total 0.4 mg/dL (0.2-1.3); Blood Urea Nitrogen 26 mg/dL (9-20); Calcium 8.9 mg/dL (8.4-10.2); Carbon Dioxide 21 mmol/L (22-32); Chloride 111 mmol/L (98-107); Cholesterol 134 mg/dL (140-199); Estimated Glomerular Filt Rate 52 mL/min (>60); Globulin 2.8 g/dL (1.7-4.1); Glucose 99 mg/dL (80-110); HDL Cholesterol 37 mg/dL (40-60); HEMOLYSIS < 15 (0-50); LDL Cholesterol Calculated 72 mg/dL (<100); Potassium 4.4 mmol/L (3.4-5.1); Sodium 140 mmol/L (137-145); Total Protein 6.3 g/dL (6.3-8.2); Triglycerides 125 mg/dL (35-150)
[2023-08-25 08:52] LABS: TSH w/ Reflex to FT4 2.68 uIU/mL (0.47-4.68)
== END ==
PROVIDERS: PCP Family Medicine; Visit Provider Family Medicine
DX: I12.9 Hypertensive chronic kidney disease with stage 1 through stage 4 chronic kidney disease, or unspecified chronic kidney disease (principal); N18.9 Chronic kidney disease, unspecified; E78.00 Pure hypercholesterolemia, unspecified; I63.9 Cerebral infarction, unspecified
CPT/HCPCS: 36415; 80053; 80061; 84443; 85025

== ENCOUNTER 2024-01-15 11:18 | Emergency (ER) | payer MEDICARE, MEDICAID, SELFPAY ==
[2019-06-09 15:37] VITALS: BMI 27.4
[2024-01-15] VITALS (26 sets, daily range): BP systolic 100–128; BP diastolic 61–78; PULSE 84–138; RESP 20–34; TEMP 37.4; O2SAT 93–98; BMI 25.7
--- NOTE | 2024-01-15 11:21 | DI.RAD.S_ITS ---
PROCEDURE: XR CHEST 1V INDICATIONS: Chest pain TECHNIQUE: One view of the chest was acquired. COMPARISON: Located Within [facility], CR, XR CHEST 1V, 09/04/2019, 19:16. FINDINGS: Surgical changes and devices: None. Lungs and pleura: Lungs are clear. No pleural effusions or pneumothorax. Mediastinum: Mediastinal contours appear normal. Heart size is normal. Bones and chest wall: No suspicious bony lesions. Overlying soft tissues appear unremarkable. IMPRESSION: No acute cardiopulmonary abnormality is seen. Dictated by: Elva Moon MD, PhD on 01/15/2024 at 12:21 Approved by: Elva Moon MD, PhD on 01/15/2024 at 12:22
--- NOTE | 2024-01-15 11:26 | EKG_ITS ---
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
[2024-01-15 11:46] LABS: Add Manual Diff / Slide Review NO; Basophils Absolute Auto 100 /uL (0-100); Basophils Percent Auto 0.6 % (0-2); Eosinophils Absolute Auto 300 /uL (0-450); Eosinophils Percent Auto 2.3 % (2-4); Hematocrit 43.6 % (41-53); Hemoglobin 14.4 g/dL (13.5-17.5); Lymphocytes Absolute Auto 1000 /uL (1100-4500); Mean Corpuscular HGB Conc 33.1 % (30-36); Mean Corpuscular Hemoglobin 29.9 PG (26-34); Mean Corpuscular Volume 90.5 fL (80-100); Monocytes Absolute Auto 1300 /uL (0-900); Monocytes Percent Auto 8.8 % (3-14); Neutrophils Absolute Auto 12000 /uL (1500-7000); Neutrophils Percent Auto 81.3 % (50-75); Platelet Count 303 X10^3/uL (150-400); Red Blood Cell Count 4.82 X10^6/uL (4.5-5.9); Red Cell Distribution Width 13.5 % (11.6-14.8); White Blood Cell Count 14.7 X10^3/uL (4.5-11.0)
--- NOTE | 2024-01-15 11:50 | ED_ITS ---
HPI - Chest Pain General Chief Complaint: Chest Pain Stated Complaint: Chest Pain Time Seen by Provider: 01/15/24 11:19 Source: patient and EMS Mode of arrival: EMS Limitations: no limitations History of Present Illness HPI narrative: Patient is a 78-year-old male. Somewhat difficult to obtain an exact history given the patient's willingness to participate in the history. He was brought to the emergency department by EMS for what was initially described as chest pain. No palpitations. He states he was chest pain when he takes a deep breath. No lightheadedness. It appears that really his symptoms are that he generally does not feel very good. Apparently he has been feeling this way for a couple days. No fevers. No overt urinary symptoms. No change in bowel habits. No skin changes. No cough. He did receive aspirin and nitro by EMS prior to arrival. Pre-hospital EKG shows tachycardia in the 140s. His medicine list shows that he was on apixaban. No history of AFib/a flutter noted in his medical history. Patient denies being lightheaded. Related Data Home Medications Medication Instructions Recorded Confirmed multivitamin 1 tab PO DAILY ##0 11/08/12 02/12/22 vitamin B complex (B 1 tab PO QDAY ##0 09/18/16 02/12/22 Complex-Vitamin B12 tablet) biosooth PO DAILY 10/25/19 02/12/22 ferrous sulfate 325 mg (65 mg 325 mg PO DAILY 10/25/19 02/12/22 iron) tablet (FeroSul) triamcinolone acetonide 55 mcg 1 spray intranasal DAILY 11/18/19 02/12/22 nasal spray aerosol apixaban 5 mg tablet (Eliquis) 5 mg PO BID 05/21/21 02/12/22 atorvastatin 20 mg tablet (Lipitor) 40 mg PO HS #0 tabs 05/21/21 02/12/22 mirtazapine 30 mg tablet 30 mg PO BEDTIME 05/21/21 02/12/22 omega-3 fatty acids-fish oil 340 1 cap PO DAILY 05/21/21 02/12/22 mg-1,000 mg capsule (Fish Oil) pantoprazole 40 mg tablet,delayed 40 mg PO DAILY 05/21/21 02/12/22 release sennosides 8.6 mg capsule (senna) 8.6 mg PO DAILY 05/21/21 02/12/22 alpha lipoic acid 200 mg capsule 200 mg PO DAILY 08/13/21 02/12/22 Previous Rx's Medication Instructions Recorded fluoxetine 20 mg capsule (Prozac) 20 mg PO DAILY #90 caps 12/20/19 metoprolol succinate 25 mg 25 mg PO DAILY #30 tabs 01/15/24 tablet,extended release 24 hr Allergies Allergy/AdvReac Type Severity Reaction Status Date / Time No Known Drug Allergies Allergy Verified 02/12/22 09:56 fragrances Allergy Intermediate rash Uncoded 02/12/22 09:56 Review of Systems Review of Systems Narrative: See HPI Patient History Medical History History of malignant neoplasm of prostate Prostate cancer Urinary incontinence, mixed Lower urinary tract symptoms (LUTS) Urinary incontinence without sensory awareness Family history of prostate cancer Prostate cancer CVA (cerebral vascular accident) Elevated PSA Male erectile disorder Prostate cancer Alcohol dependence Major depressive disorder, single episode, severe without psychotic features Hypercholesterolemia Hypertension Chronic low back pain Surgical History H/O aortic valve replacement H/O colectomy H/O prostate biopsy History of bilateral knee replacement History of prostatectomy Total knee replacement status Family History Father Cancer Alcohol abuse Social History marital status: details: 7 yrs ago number of children: 3 household members: none lives independently: Yes caregiver/support person: No housing: [facility] pets and animals: No education level: high school occupational status: other current occupational exposures/hazards: No Smoking Status: Current some day smoker alcohol intake: current substance use type: marijuana during the past year weight has: remained stable well-balanced diet: daily or most days Type(s) of exercise: aerobic additional social history: Born and raised in [place]. Grew up in an intact family. High school Education. 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 Smoking Status: Current some day smoker alcohol intake frequency: a few times a week Substance Use Type: marijuana Exam Initial Vital Signs Initial Vital Signs: Vital Signs Pulse Rate 135 H 01/15/24 11:24 Respiratory Rate 22 01/15/24 11:24 Pulse Oximetry 95 01/15/24 11:24 Const General: cooperative, comfortable and No ill appearing HENMT Head: normal to inspection and normocephalic Resp Effort & Inspection: normal respiratory effort Auscultation: clear to auscultation bilaterally Cardio Rate: tachycardic Rhythm: regular rhythm GI Inspection: normal to inspection and non-distended Palpation: soft, No firm, No guarding and tender Skin General: no rashes or lesions noted Neuro General: patient alert, patient awake and moves all extremities Extrem General: capillary refill normal Course Orders Ordered: ED Orders 01/15/24 11:21 XR chest 1V Stat 01/15/24 11:22 EKG-12 Lead Stat 01/15/24 11:35 BNP [NT-proBNP (BNP-Adult 18+)] Stat Complete Blood Count AUTO DIFF Stat Comprehensive Metabolic Panel Stat Ethanol (ETOH) Stat Lactate (Lactic Acid) Stat Lipase Stat Magnesium Stat PTT Partial Thromboplastin Michael Stat Procalcitonin Stat Prothrombin Time INR Stat Troponin & CK Cardiac Panel Stat Urine Culture Stat 01/15/24 11:52 Respiratory Panel (Film Array) Stat 01/15/24 12:10 Blood Culture Stat 01/15/24 12:48 EKG-12 Lead Stat 01/15/24 14:29 Troponin & CK Cardiac Panel Stat Sodium Chloride (Normal Saline 0.9%) 1,000 mls @ 100 mls/hr IV CONT SANDRO Last Admin: 01/15/24 12:15 Dose: 100 mls/hr Documented By: GREER Discontinued Medications Magnesium Sulfate (Magnesium Sulfate) 2 gm in 50 mls @ 25 mls/hr IV NOW ONE Stop: 01/15/24 14:23 Last Infusion: 01/15/24 14:12 Dose: Infused Documented By: SB Co-signed By: KRYSTAL Admin: 01/15/24 12:30 Dose: 25 mls/hr Documented By: GREER Co-signed By: ANITA Metoprolol Succinate (Metoprolol Er 25 Mg Tablet) 25 mg PO NOW ONE Stop: 01/15/24 13:29 Last Admin: 01/15/24 14:21 Dose: 25 mg Documented By: ADRIANA Metoprolol Tartrate (Metoprolol Tartrate 5 Mg/5 Ml Inj) 5 mg IV NOW ONE Stop: 01/15/24 12:19 Last Admin: 01/15/24 12:30 Dose: 5 mg Documented By: GREER Tramadol HCl (Tramadol 50 Mg Tablet) 50 mg PO NOW ONE Stop: 01/15/24 15:42 Last Admin: 01/15/24 15:51 Dose: 50 mg Documented By: ADRIANA Vital Signs Vital signs: Vital Signs - 8 hr 01/15/24 11:24 01/15/24 11:29 01/15/24 11:30 Temperature 99.3 F Pulse Rate 135 H 133 H 131 H Respiratory Rate 22 22 30 H Blood Pressure 117/67 Pulse Oximetry 95 94 95 Oxygen Delivery Method Room Air 01/15/24 11:44 01/15/24 11:44 01/15/24 12:00 Temperature Pulse Rate 129 H 128 H Respiratory Rate 29 H 20 Blood Pressure 117/70 Pulse Oximetry 96 94 Oxygen Delivery Method 01/15/24 12:18 01/15/24 12:18 01/15/24 12:30 Temperature Pulse Rate 132 H 138 H Respiratory Rate 31 H 27 H Blood Pressure 128/76 Pulse Oximetry 95 96 Oxygen Delivery Method 01/15/24 12:30 01/15/24 12:45 01/15/24 12:45 Temperature Pulse Rate 118 H Respiratory Rate 31 H Blood Pressure 100/66 102/69 Pulse Oximetry 94 Oxygen Delivery Method 01/15/24 13:00 01/15/24 13:00 01/15/24 13:15 Temperature Pulse Rate 88 88 Respiratory Rate 29 H 25 H Blood Pressure 110/73 Pulse Oximetry 95 96 Oxygen Delivery Method 01/15/24 13:15 01/15/24 13:30 01/15/24 13:45 Temperature Pulse Rate 89 89 Respiratory Rate 26 H 20 Blood Pressure 110/72 115/77 100/71 Pulse Oximetry 96 94 Oxygen Delivery Method 01/15/24 14:00 01/15/24 14:21 Temperature Pulse Rate 90 97 H Respiratory Rate 22 Blood Pressure 108/69 121/69 Pulse Oximetry 96 Oxygen Delivery Method Room Air MDM - Chest Pain Medical Records Data Attestation: I reviewed the patient's medical records. Lab Data Attestation: I reviewed the patient's lab results. 01/15/24 11:35 01/15/24 11:35 Labs: Lab Results 11/15/24 11/15/24 11/15/24 Range/Units 11:35 11:52 13:32 WBC 14.7 H (4.5-11.0) X10^3/uL RBC 4.82 (4.5-5.9) X10^6/uL Hgb 14.4 (13.5-17.5) g/dL Hct 43.6 (41-53) % MCV 90.5 (80-100) fL MCH 29.9 (26-34) PG MCHC 33.1 (30-36) % RDW 13.5 (11.6-14.8) % Plt Count 303 (150-400) X10^3/uL Neut % (Auto) 81.3 H (50-75) % Lymph % (Auto) 7.0 L (25-40) % [place] % (Auto) 8.8 (3-14) % Eos % (Auto) 2.3 (2-4) % Baso % (Auto) 0.6 (0-2) % Neut # (Auto) 67858 H (7141-0439) /uL Lymph # (Auto) 1000 L (3995-3229) /uL [place] # (Auto) 1300 H (0-900) /uL Eos # (Auto) 300 (0-450) /uL Baso # (Auto) 100 (0-100) /uL PT 14.9 H (9.4-12.5) SECONDS INR 1.3 (0.9-1.3) APTT 40 H (25.1-36.5) SECONDS Sodium 139 (137-145) mmol/L Potassium 4.4 (3.4-5.1) mmol/L Chloride 105 (98-107) mmol/L Carbon Dioxide 21 L (22-32) mmol/L BUN 23 H (9-20) mg/dL Creatinine 1.72 H (0.66-1.25) mg/dL Estimated GFR 40 L (>60) mL/min BUN/Creatinine Ratio 13.4 (6-22) Glucose 135 H (80-110) mg/dL Lactate 2.2 H 1.2 (0.7-2.1) mmol/L Calcium 9.5 (8.4-10.2) mg/dL Magnesium 1.5 L (1.6-2.3) mg/dL Total Bilirubin 0.7 (0.2-1.3) mg/dL AST 37 (17-59) IU/L ALT 24 (<50) IU/L Alkaline Phosphatase 68 (38-126) U/L Total Creatine Kinase 44 L (55-170) U/L Troponin I < 0.012 (0.01-0.034) ng/mL NT-Pro-B Natriuret Pep 619 H (<450) pg/mL Total Protein 8.1 (6.3-8.2) g/dL Albumin 4.3 (3.5-5.0) g/dL Globulin 3.8 (1.7-4.1) g/dL Albumin/Globulin Ratio 1.1 (1.0-2.8) Lipase 59 (23-300) U/L Procalcitonin 0.138 (<0.5) ng/mL Ethyl Alcohol < 10 ( - 10) mg/dL Chlamy pneumoniae PCR Not detected (Not Detect) Adenovirus (PCR) Not detected (Not Detect) B. pertussis DNA (PCR) Not detected (Not Detect) B.parapertussis DNA PCR Not detected (Not Detecte) Coronavirus OC43 (PCR) Not detected (Not Detect) Coronavirus HKU1 (PCR) Not detected (Not Detect) Coronavirus 229E (PCR) Not detected (Not Detect) SARS-CoV-2 (PCR) Not detected (Not Detecte) Coronavirus NL63 (PCR) Not detected (Not Detect) Human Metapneumovir PCR Not detected (Not Detect) Influenza Type A (PCR) Not detected (Not Detect) Influenza Type B (PCR) Not detected (Not Detect) M. pneumoniae (PCR) Not detected (Not Detect) Parainfluenza 1 (PCR) Not detected (Not Detect) Parainfluenza 2 (PCR) Not detected (Not Detect) Parainfluenza 3 (PCR) Not detected (Not Detect) Parainfluenza 4 (PCR) Not detected (Not Detect) RSV (PCR) Not detected (Not Detect) Entero/Rhino (PCR) Not detected (Not Detect) 01/15/24 Range/Units 14:29 WBC (4.5-11.0) X10^3/uL RBC (4.5-5.9) X10^6/uL Hgb (13.5-17.5) g/dL Hct (41-53) % MCV (80-100) fL MCH (26-34) PG MCHC (30-36) % RDW (11.6-14.8) % Plt Count (150-400) X10^3/uL Neut % (Auto) (50-75) % Lymph % (Auto) (25-40) % [place] % (Auto) (3-14) % Eos % (Auto) (2-4) % Baso % (Auto) (0-2) % Neut # (Auto) (7145-8263) /uL Lymph # (Auto) (8676-6957) /uL [place] # (Auto) (0-900) /uL Eos # (Auto) (0-450) /uL Baso # (Auto) (0-100) /uL PT (9.4-12.5) SECONDS INR (0.9-1.3) APTT (25.1-36.5) SECONDS Sodium (137-145) mmol/L Potassium (3.4-5.1) mmol/L Chloride (98-107) mmol/L Carbon Dioxide (22-32) mmol/L BUN (9-20) mg/dL Creatinine (0.66-1.25) mg/dL Estimated GFR (>60) mL/min BUN/Creatinine Ratio (6-22) Glucose (80-110) mg/dL Lactate (0.7-2.1) mmol/L Calcium (8.4-10.2) mg/dL Magnesium (1.6-2.3) mg/dL Total Bilirubin (0.2-1.3) mg/dL AST (17-59) IU/L ALT (<50) IU/L Alkaline Phosphatase (38-126) U/L Total Creatine Kinase 38 L (55-170) U/L Troponin I < 0.012 (0.01-0.034) ng/mL NT-Pro-B Natriuret Pep (<450) pg/mL Total Protein (6.3-8.2) g/dL Albumin (3.5-5.0) g/dL Globulin (1.7-4.1) g/dL Albumin/Globulin Ratio (1.0-2.8) Lipase (23-300) U/L Procalcitonin (<0.5) ng/mL Ethyl Alcohol ( - 10) mg/dL Chlamy pneumoniae PCR (Not Detect) Adenovirus (PCR) (Not Detect) B. pertussis DNA (PCR) (Not Detect) B.parapertussis DNA PCR (Not Detecte) Coronavirus OC43 (PCR) (Not Detect) Coronavirus HKU1 (PCR) (Not Detect) Coronavirus 229E (PCR) (Not Detect) SARS-CoV-2 (PCR) (Not Detecte) Coronavirus NL63 (PCR) (Not Detect) Human Metapneumovir PCR (Not Detect) Influenza Type A (PCR) (Not Detect) Influenza Type B (PCR) (Not Detect) M. pneumoniae (PCR) (Not Detect) Parainfluenza 1 (PCR) (Not Detect) Parainfluenza 2 (PCR) (Not Detect) Parainfluenza 3 (PCR) (Not Detect) Parainfluenza 4 (PCR) (Not Detect) RSV (PCR) (Not Detect) Entero/Rhino (PCR) (Not Detect) Imaging Data Chest x-ray: Radiologist's Impression: PROCEDURE: XR CHEST 1V INDICATIONS: Chest pain TECHNIQUE: One view of the chest was acquired. COMPARISON: [facility], , XR CHEST 1V, 09/04/2019, 19:16. FINDINGS: Surgical changes and devices: None. Lungs and pleura: Lungs are clear. No pleural effusions or pneumothorax. Mediastinum: Mediastinal contours appear normal. Heart size is normal. Bones and chest wall: No suspicious bony lesions. Overlying soft tissues appear unremarkable. IMPRESSION: No acute cardiopulmonary abnormality is seen. ECG Data Attestation: I personally reviewed and interpreted this ECG as follows: Interpretation: Supraventricular tachycardia Rate of 134 Left axis deviation Nonspecific ST T wave changes Repeat EKG Sinus rhythm Ventricular rate of 88 First-degree AV block WA interval of 210 milliseconds Left axis deviation Nonspecific ST T wave changes MDM Narrative Medical decision making narrative: No specific source of infection found although he does have a leukocytosis of 14. Patient was tachycardic upon arrival. Difficult to specifically determine whether or not this was a sinus tachycardia versus atrial flutter. He was given a dose of metoprolol. This initially improved his heart rate from the 120s to 130 range down to the 110 range. He then had improvement of his heart rate into the 80s to 90s. He was clearly sinus rhythm when it was at this rate. I suspect that he was in atrial flutter. Review of his medical record shows that he was not on any metoprolol. Will start him on metoprolol. His troponins are negative x2. Once his heart rate was better he stated that he felt much better. He was no history of AFib/a flutter. He was on apixaban. He states he has had ?heart issues? in the past which is why he was on these medications but does not know specifically what these issues were. No indication for admission the hospital and that the patient's vital signs are improved and he was feeling better. Low suspicion for ACS. Will discharge home with return precautions. Discharge Plan Departure Patient Disposition: Home Clinical Impression: Atrial flutter Instructions: Atrial Flutter Activity Restrictions/Additional Instructions: Continue to take all of your medications as directed. We are going to start you on a new medicine called metoprolol. This is a 1 time a day medication. If the fast heart rate happens again we may need to adjust this medication. Your next dose will be on 01/16/2024. You were given a dose of that medicine here in the emergency department prior to discharge. Recommend your primary doctor be notified of your visit here today. Return to the emergency department for new symptoms. Prescriptions: New metoprolol succinate 25 mg tablet extended release 24 hr 25 mg PO DAILY Qty: 30 0RF No Action biosooth PO DAILY ferrous sulfate [FeroSul] 325 mg (65 mg iron) tablet 325 mg PO DAILY multivitamin Tablet 1 tab PO DAILY Qty: 0 vitamin B complex [B Complex-Vitamin B12] 1 EACH tablet 1 tab PO QDAY Qty: 0 triamcinolone acetonide 55 mcg aerosol,spray 1 spray NASAL DAILY Rx Instructions: administer into each nostril fluoxetine [Prozac] 20 mg capsule 20 mg PO DAILY Qty: 90 3RF Rx Instructions: Take with food atorvastatin [Lipitor] 20 mg tablet 40 mg PO HS Qty: 0 alpha lipoic acid 200 mg capsule 200 mg PO DAILY Eliquis 5 mg tablet 5 mg PO BID Fish Oil 340-1,000 mg capsule 1 cap PO DAILY mirtazapine 30 mg tablet 30 mg PO BEDTIME pantoprazole 40 mg tablet,delayed release (DR/EC) 40 mg PO DAILY senna 8.6 mg capsule 8.6 mg PO DAILY Referrals: Marlon Fabian MD [Primary Care Provider] - Stand Alone Forms: Patient Portal/API/Survey
[2024-01-15 11:53] LABS: INR 1.3 (0.9-1.3); Prothrombin Time 14.9 SECONDS (9.4-12.5)
[2024-01-15 11:55] LABS: PTT Partial Thromboplastin Tim 40 SECONDS (25.1-36.5)
[2024-01-15 11:58] LABS: Lactate (Lactic Acid) 2.2 mmol/L (0.7-2.1)
[2024-01-15 12:08] LABS: NT-proBNP (BNP-Adult 18+) 619 pg/mL (<450)
[2024-01-15 12:14] LABS: Troponin I < 0.012 ng/mL (0.01-0.034)
[2024-01-15] MEDS: SODIUM CHLORIDE 0.9% 1,000 ML 100 ML IV (12:15)
[2024-01-15 12:16] LABS: Procalcitonin 0.138 ng/mL (<0.5)
[2024-01-15 12:19] LABS: Alanine Aminotransferase 24 IU/L (<50); Albumin 4.3 g/dL (3.5-5.0); Albumin Globulin Ratio 1.1 (1.0-2.8); Alkaline Phosphatase 68 U/L (38-126); Aspartate Aminotransferase 37 IU/L (17-59); BUN Creatinine Ratio 13.4 (6-22); Bilirubin Total 0.7 mg/dL (0.2-1.3); Blood Urea Nitrogen 23 mg/dL (9-20); Calcium 9.5 mg/dL (8.4-10.2); Carbon Dioxide 21 mmol/L (22-32); Chloride 105 mmol/L (98-107); Creatine Kinase 44 U/L (55-170); Estimated Glomerular Filt Rate 40 mL/min (>60); Ethanol (ETOH) < 10 mg/dL; Globulin 3.8 g/dL (1.7-4.1); Glucose 135 mg/dL (80-110); HEMOLYSIS 26 (0-50); Lipase 59 U/L (23-300); Magnesium 1.5 mg/dL (1.6-2.3); Potassium 4.4 mmol/L (3.4-5.1); Sodium 139 mmol/L (137-145); Total Protein 8.1 g/dL (6.3-8.2)
[2024-01-15] MEDS: METOPROLOL TARTRATE 5 MG/5 ML INJ IV (12:30)
[2024-01-15] MEDS: MAGNESIUM SULFATE 2 GM/50 ML PIGGYBACK IV (12:30)
--- NOTE | 2024-01-15 12:48 | PC.NURSE ---
Pt a&ox4. HR 119 after metoprolol & mag. Dr Wayne notified. Repeat EKG ordered.
--- NOTE | 2024-01-15 12:55 | EKG_ITS ---
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
[2024-01-15 12:58] LABS: Adenovirus Not Detected (Not Detect); B. parapertussis Not Detected (Not Detecte); Bordetella pertussis Not Detected (Not Detect); Chlamydophila pneumoniae Not Detected (Not Detect); Coronavirus 229E Not Detected (Not Detect); Coronavirus HKU1 Not Detected (Not Detect); Coronavirus NL 63 Not Detected (Not Detect); Coronavirus OC43 Not Detected (Not Detect); Human Metapneumovirus Not Detected (Not Detect); Human Rhinovirus/Enterovirus Not Detected (Not Detect); Influenza A Not Detected (Not Detect); Influenza B Not Detected (Not Detect); Mycoplasma pneumoniae Not Detected (Not Detect); Parainfluenza Virus 1 Not Detected (Not Detect); Parainfluenza Virus 2 Not Detected (Not Detect); Parainfluenza Virus 3 Not Detected (Not Detect); Parainfluenza Virus 4 Not Detected (Not Detect); Respiratory Syncytial Virus Not Detected (Not Detect); SARS- CoV-2 Not Detected (Not Detecte)
[2024-01-15 13:17] LABS: Reflexed Lactate in 2 Hours Y
[2024-01-15 13:58] LABS: Lactate 2HR (Lactic Acid Rflx) 1.2 mmol/L (0.7-2.1)
[2024-01-15] MEDS: METOPROLOL ER 25 MG TABLET PO (14:21)
[2024-01-15 14:48] LABS: Creatine Kinase 38 U/L (55-170)
[2024-01-15 15:01] LABS: Troponin I < 0.012 ng/mL (0.01-0.034)
[2024-01-15] MEDS: TRAMADOL 50 MG TABLET PO (15:51)
--- NOTE | 2024-01-17 10:39 | PC.NURSE ---
May from microbiology called to report positive blood culture organism of gram positive cocci for pt.
== END 2024-01-15 18:00 | disposition home or self-care (01) ==
PROVIDERS: Emergency Provider Emergency Medicine; PCP Family Medicine
DX: I48.92 Unspecified atrial flutter (principal); I47.10 Supraventricular tachycardia, unspecified; Z79.01 Long term (current) use of anticoagulants; Z11.52 Encounter for screening for COVID-19
CPT/HCPCS: 36415; 71045; 80053; 80320; 82550; 83605; 83690; 83735; 83880; 84145; 84484; 85025; 85610; 85730; 87040; 87077; 87633; 93005; 96361; 96365; 96366; 96375; 99284; J3475

== ENCOUNTER 2024-03-13 17:03 | Emergency (ER) | payer MEDICARE, MEDICAID, SELFPAY ==
[2019-06-09 15:37] VITALS: BMI 27.4
[2024-03-13 17:09] VITALS: BP 134/72; PULSE 74; RESP 16; TEMP 36.5; O2SAT 98; BMI 31.0
--- NOTE | 2024-03-13 17:17 | DI.RAD.S_ITS ---
PROCEDURE: XR CLAVICLE LT INDICATIONS: sent from SNF for deformed clavicle. no pain. TECHNIQUE: 2 views of the clavicle were acquired. COMPARISON: [facility], CR, XR CLAVICLE LEFT, 05/03/2019, 9:42. [facility], CR, XR CLAVICLE LEFT, 05/31/2019, 11:49. [facility], CR, XR CHEST 1V, 01/15/2024, 11:45. [facility], CR, XR FOOT 3+ VIEWS LEFT, 03/12/2021, 15:38. FINDINGS: Bones: There is irregularity seen involving the medial clavicle, yet without a cheryle bony abnormality. The visualized ribs appear intact. Age-appropriate bony degenerative changes are seen. Soft tissues: No suspicious soft tissue calcifications. The visualized lung demonstrates an unremarkable appearance. IMPRESSION: Irregularity seen involving the medial clavicle, which is attributed to the remote fracture. If there is point tenderness (or other clinical suspicion for a fracture not seen on these images) then a dedicated CT could be considered for further evaluation, if clinically appropriate. Dictated by: Alfa Hardy M.D. on 03/13/2024 at 17:25 Approved by: Alfa Hardy M.D. on 03/13/2024 at 17:27
--- NOTE | 2024-03-13 18:26 | ED.RECABL ---
HPI - Recheck/Abnormal Lab/Rx General Chief Complaint: Recheck/Abnormal Lab/Rx Stated Complaint: L collarbone protrusion Time Seen by Provider: 03/13/24 18:22 Source: patient Mode of arrival: EMS Limitations: no limitations History of Present Illness HPI narrative: Patient was a 78-year-old male who is here for evaluation a potential injury to his left collarbone. There was no reported injuries. Patient has no pain. He states he has not fallen. Apparently someone where the living facility that he lives noticed that maybe the collarbone was protruding more than normal. Patient reports no prior injuries. He was completely asymptomatic. Related Data Home Medications Medication Instructions Recorded Confirmed multivitamin 1 tab PO DAILY ##0 11/08/12 02/12/22 vitamin B complex (B 1 tab PO QDAY ##0 09/18/16 02/12/22 Complex-Vitamin B12 tablet) biosooth PO DAILY 10/25/19 02/12/22 ferrous sulfate 325 mg (65 mg 325 mg PO DAILY 10/25/19 02/12/22 iron) tablet (FeroSul) triamcinolone acetonide 55 mcg 1 spray intranasal DAILY 11/18/19 02/12/22 nasal spray aerosol apixaban 5 mg tablet (Eliquis) 5 mg PO BID 05/21/21 02/12/22 atorvastatin 20 mg tablet (Lipitor) 40 mg PO HS #0 tabs 05/21/21 02/12/22 mirtazapine 30 mg tablet 30 mg PO BEDTIME 05/21/21 02/12/22 omega-3 fatty acids-fish oil 340 1 cap PO DAILY 05/21/21 02/12/22 mg-1,000 mg capsule (Fish Oil) pantoprazole 40 mg tablet,delayed 40 mg PO DAILY 05/21/21 02/12/22 release sennosides 8.6 mg capsule (senna) 8.6 mg PO DAILY 05/21/21 02/12/22 alpha lipoic acid 200 mg capsule 200 mg PO DAILY 08/13/21 02/12/22 Previous Rx's Medication Instructions Recorded fluoxetine 20 mg capsule (Prozac) 20 mg PO DAILY #90 caps 12/20/19 metoprolol succinate 25 mg 25 mg PO DAILY #30 tabs 01/15/24 tablet,extended release 24 hr Allergies Allergy/AdvReac Type Severity Reaction Status Date / Time No Known Drug Allergies Allergy Verified 02/12/22 09:56 fragrances Allergy Intermediate rash Uncoded 02/12/22 09:56 Review of Systems Review of Systems Narrative: See HPI Patient History Medical History History of malignant neoplasm of prostate Prostate cancer Urinary incontinence, mixed Lower urinary tract symptoms (LUTS) Urinary incontinence without sensory awareness Family history of prostate cancer Prostate cancer CVA (cerebral vascular accident) Elevated PSA Male erectile disorder Prostate cancer Alcohol dependence Major depressive disorder, single episode, severe without psychotic features Hypercholesterolemia Hypertension Chronic low back pain Surgical History H/O aortic valve replacement H/O colectomy H/O prostate biopsy History of bilateral knee replacement History of prostatectomy Total knee replacement status Family History Father Cancer Alcohol abuse Social History marital status: details: 7 yrs ago number of children: 3 household members: none lives independently: Yes caregiver/support person: No housing: condominium pets and animals: No education level: high school occupational status: other current occupational exposures/hazards: No Smoking Status: Current some day smoker alcohol intake: current substance use type: marijuana during the past year weight has: remained stable well-balanced diet: daily or most days Type(s) of exercise: aerobic additional social history: Born and raised in [facility]. Grew up in an intact family. High school Education. 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 Smoking Status: Current some day smoker alcohol intake frequency: a few times a week Exam Initial Vital Signs Initial Vital Signs: Vital Signs Temperature 97.7 F 03/13/24 17:09 Pulse Rate 74 03/13/24 17:09 Respiratory Rate 16 03/13/24 17:09 Blood Pressure 134/72 03/13/24 17:09 Pulse Oximetry 98 03/13/24 17:09 Oxygen Delivery Method Room Air 03/13/24 17:09 Resp Effort & Inspection: normal respiratory effort Extrem Other: patient does have a protrusion at the sternoclavicular joint of the left clavicle without any overlying skin abnormalities. There was no crepitus in this area. No tenderness to palpation. No tenderness along the clavicle itself. No tenderness along the left AC joint. he has no tenderness with movement of the left shoulder. Course Orders Ordered: ED Orders 03/13/24 17:17 XR clavicle LT Stat Vital Signs Vital signs: Vital Signs - 8 hr 03/13/24 19:47 Temperature 98.5 F Pulse Rate 68 Respiratory Rate 16 Blood Pressure 155/74 H Pulse Oximetry 98 Oxygen Delivery Method Room Air [facility] - Recheck/Abnormal Lab/Rx Imaging Data Extremity x-ray #1: Radiologist's Impression: PROCEDURE: XR CLAVICLE LT INDICATIONS: sent from [facility] for deformed clavicle. no pain. TECHNIQUE: 2 views of the clavicle were acquired. COMPARISON: [facility], CR, XR CLAVICLE LEFT, 05/03/2019, 9:42. [facility], CR, XR CLAVICLE LEFT, 05/31/2019, 11:49. [facility], CR, XR CHEST 1V, 01/15/2024, 11:45. [facility], CR, XR FOOT 3+ VIEWS LEFT, 03/12/2021, 15:38. FINDINGS: Bones: There is irregularity seen involving the medial clavicle, yet without a cheryle bony abnormality. The visualized ribs appear intact. Age-appropriate bony degenerative changes are seen. Soft tissues: No suspicious soft tissue calcifications. The visualized lung demonstrates an unremarkable appearance. IMPRESSION: Irregularity seen involving the medial clavicle, which is attributed to the remote fracture. If there is point tenderness (or other clinical suspicion for a fracture not seen on these images) then a dedicated CT could be considered for further evaluation, if clinically appropriate. [facility] Narrative Medical decision making narrative: it appears that he at some point had an old injury to the left clavicle. I do not think that any of his findings today are new. Most likely had a sternoclavicular joint disruption that some point in the past. No further workup required in the emergency department. Discharge Plan Departure Patient Disposition: Home Clinical Impression: Sternoclavicular joint subluxation Activity Restrictions/Additional Instructions: No acute fractures were noted on the x-rays. Unless he develops discomfort over the left collarbone no further workup is required. Prescriptions: No Action biosooth PO DAILY ferrous sulfate [FeroSul] 325 mg (65 mg iron) tablet 325 mg PO DAILY multivitamin Tablet 1 tab PO DAILY Qty: 0 vitamin B complex [B Complex-Vitamin B12] 1 EACH tablet 1 tab PO QDAY Qty: 0 triamcinolone acetonide 55 mcg aerosol,spray 1 spray NASAL DAILY Rx Instructions: administer into each nostril fluoxetine [Prozac] 20 mg capsule 20 mg PO DAILY Qty: 90 3RF Rx Instructions: Take with food atorvastatin [Lipitor] 20 mg tablet 40 mg PO HS Qty: 0 metoprolol succinate 25 mg tablet extended release 24 hr 25 mg PO DAILY Qty: 30 0RF alpha lipoic acid 200 mg capsule 200 mg PO DAILY Eliquis 5 mg tablet 5 mg PO BID Fish Oil 340-1,000 mg capsule 1 cap PO DAILY mirtazapine 30 mg tablet 30 mg PO BEDTIME pantoprazole 40 mg tablet,delayed release (DR/EC) 40 mg PO DAILY senna 8.6 mg capsule 8.6 mg PO DAILY Referrals: Marlon Fabian MD [Primary Care Provider] - Stand Alone Forms: Patient Portal/API/Survey
[2024-03-13 19:47] VITALS: BP 155/74; PULSE 68; RESP 16; TEMP 36.9; O2SAT 98
--- NOTE | 2024-03-13 19:54 | PC.NURSE ---
[facility] called and left report with nursing team. Pt on way back.
== END 2024-03-13 19:48 | disposition home or self-care (01) ==
PROVIDERS: Emergency Provider Emergency Medicine; PCP Family Medicine
DX: S43.203A Unspecified subluxation of unspecified sternoclavicular joint, initial encounter (principal)
CPT/HCPCS: 73000; 99283

== ENCOUNTER 2024-04-17 22:44 | Inpatient (IN) | payer MEDICARE, MEDICAID, SELFPAY ==
[2019-06-09 15:37] VITALS: BMI 27.4
[2024-04-17 22:56] VITALS: BP 107/69; PULSE 118; RESP 16; TEMP 36.9; O2SAT 90
[2024-04-17 22:58] VITALS: PULSE 118; RESP 35; O2SAT 92
[2024-04-17 23:00] VITALS: PULSE 119; RESP 36; O2SAT 92
--- NOTE | 2024-04-17 23:04 | DI.RAD.S_ITS ---
PROCEDURE: XR CHEST 1V INDICATIONS: altered mental status TECHNIQUE: One view of the chest was acquired. COMPARISON: [facility], CR, XR CHEST 1V, 01/15/2024, 11:45. [facility], CR, XR CHEST 1V, 09/04/2019, 19:16. FINDINGS: Surgical changes and devices: Metallic densities overlying the epigastric region. TAVR stent. Lungs and pleura: Low lung volumes. No focal lung consolidation. No pleural effusions or pneumothorax. Mediastinum: Aortic arch calcifications. Mediastinal contours appear normal. Heart size is normal. Bones and chest wall: No suspicious bony lesions. Overlying soft tissues appear unremarkable. IMPRESSION: No acute cardiothoracic process. Dictated by: Bryce Pinzon M.D. on 04/18/2024 at 0:31 Approved by: Bryce Pinzon M.D. on 04/18/2024 at 0:32
--- NOTE | 2024-04-17 23:06 | EKG_ITS ---
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
--- NOTE | 2024-04-17 23:10 | DI.CT.S_ITS ---
PROCEDURE: CT HEAD/BRAIN WO CON INDICATIONS: alt MSE TECHNIQUE: Noncontrast 4.5 mm thick angled axial sections acquired from the foramen magnum to the vertex, with coronal and sagittal reformats. For radiation dose reduction, the following was used: automated exposure control, adjustment of mA and/or kV according to patient size. COMPARISON: [facility], CT, CT HEAD/BRAIN WO CON, 03/24/2019, 22:05. FINDINGS: Image quality: Fair; motion artifact limits evaluation. CSF spaces: Basal cisterns are patent. No extra-axial fluid collections. The ventricles are symmetric in size and shape. Brain: Right temporoparietal encephalomalacia with corresponding ex vacuo dilatation of the right lateral ventricles, likely secondary to prior infarct. Chronic infarct of the left head of the caudate nucleus (2/). No intracranial bleeds or masses. There is cerebral volume loss for age, with resultant ventricular and sulcal prominence. There are periventricular and deep white matter chronic small vessel ischemic changes. There is intracranial internal carotid artery atherosclerosis. Skull and face: Calvarium and visualized facial bones appear intact, without suspicious lesions. Sinuses: Visualized sinuses and mastoids are clear. IMPRESSION: No acute intracranial abnormality. Dictated by: Bryce Pinzon M.D. on 04/18/2024 at 0:25 Approved by: Bryce Pinzon M.D. on 04/18/2024 at 0:27
--- NOTE | 2024-04-17 23:14 | ED.AMS ---
HPI - Altered Mental Status General Chief Complaint: Altered Mental Status Stated Complaint: Altered mental status Time Seen by Provider: 04/17/24 22:59 Source: EMS Mode of arrival: EMS History of Present Illness HPI narrative: 78-year-old male resident at [facility] noticed by staff félixight to have decreased responsiveness. No injury or trauma known. Eliquis on medication list, unclear indication. Chart history problems with prior C diff diarrhea, Campylobacter diarrhea, prostate cancer, urinary incontinence, depression. Patient arrived by EMS. On arrival he is able to state his name and no CAD he has at the hospital. He complains of pain to his right abdomen. No nausea or vomiting. No black or bloody stools. Related Data Home Medications Medication Instructions Recorded Confirmed multivitamin 1 tab PO DAILY ##0 11/08/12 04/18/24 vitamin B complex (B 1 tab PO QDAY ##0 09/18/16 04/18/24 Complex-Vitamin B12 tablet) biosooth PO DAILY 10/25/19 02/12/22 ferrous sulfate 325 mg (65 mg 325 mg PO DAILY 10/25/19 04/18/24 iron) tablet (FeroSul) triamcinolone acetonide 55 mcg 1 spray intranasal DAILY 11/18/19 04/18/24 nasal spray aerosol apixaban 5 mg tablet (Eliquis) 5 mg PO BID 05/21/21 04/18/24 atorvastatin 20 mg tablet (Lipitor) 40 mg PO HS #0 tabs 05/21/21 02/12/22 mirtazapine 30 mg tablet 30 mg PO BEDTIME 05/21/21 04/18/24 omega-3 fatty acids-fish oil 340 1 cap PO DAILY 05/21/21 02/12/22 mg-1,000 mg capsule (Fish Oil) pantoprazole 40 mg tablet,delayed 40 mg PO DAILY 05/21/21 04/18/24 release sennosides 8.6 mg capsule (senna) 8.6 mg PO DAILY 05/21/21 04/18/24 alpha lipoic acid 200 mg capsule 200 mg PO DAILY 08/13/21 04/18/24 Previous Rx's Medication Instructions Recorded fluoxetine 20 mg capsule (Prozac) 20 mg PO DAILY #90 caps 12/20/19 metoprolol succinate 25 mg 25 mg PO DAILY #30 tabs 11/15/24 tablet,extended release 24 hr Allergies Allergy/AdvReac Type Severity Reaction Status Date / Time No Known Drug Allergies Allergy Verified 02/12/22 09:56 fragrances Allergy Intermediate rash Uncoded 02/12/22 09:56 Patient History Medical History Hemiparesis affecting left side as late effect of cerebrovascular accident History of malignant neoplasm of prostate Prostate cancer Urinary incontinence, mixed Lower urinary tract symptoms (LUTS) Urinary incontinence without sensory awareness Family history of prostate cancer Prostate cancer CVA (cerebral vascular accident) Elevated PSA Male erectile disorder Prostate cancer Alcohol dependence Major depressive disorder, single episode, severe without psychotic features Hypercholesterolemia Hypertension Chronic low back pain Surgical History H/O aortic valve replacement Total knee replacement status H/O prostate biopsy H/O colectomy History of prostatectomy History of bilateral knee replacement Family History Father Cancer Alcohol abuse Social History marital status: details: 7 yrs ago number of children: 3 household members: none lives independently: Yes caregiver/support person: No housing: condominium pets and animals: No education level: high school occupational status: other current occupational exposures/hazards: No Smoking Status: Current some day smoker alcohol intake: current substance use type: marijuana during the past year weight has: remained stable well-balanced diet: daily or most days Type(s) of exercise: aerobic additional social history: Born and raised in [facility]. Grew up in an intact family. High school Education. 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 Smoking Status: Current some day smoker alcohol intake frequency: a few times a week Exam Narrative Exam Narrative: GENERAL: Well-developed patient, in mild distress. HEAD: Atraumatic. Normocephalic. EYES: Pupils equal round and reactive. Extraocular motions intact. No scleral icterus. No injection or drainage. ENT: Nose without bleeding, purulent drainage. Throat without erythema, tonsillar hypertrophy or exudate. Airway patent. NECK: Trachea midline. Non tender CARDIOVASCULAR: Regular rate and rhythm without murmurs, gallops, or rubs. RESPIRATORY: Clear to auscultation. Breath sounds equal bilaterally. No wheezes, rales, or rhonchi. GASTROINTESTINAL: Abdomen soft, non-tender, nondistended. EXTREMITIES: No edema or joint tenderness. BACK: Nontender without deformity or crepitance. No flank tenderness. NEURO: AOx3. Motor functions grossly nonfocal. He was able to state his name, and where he was, speaks slowly SKIN: No rash or erythema of visible areas Initial Vital Signs Initial Vital Signs: Vital Signs Temperature 98.5 F 04/17/24 22:56 Pulse Rate 118 H 04/17/24 22:56 Respiratory Rate 16 04/17/24 22:56 Blood Pressure 107/69 04/17/24 22:56 Pulse Oximetry 90 L 04/17/24 22:56 Oxygen Delivery Method Room Air 04/17/24 22:56 Course Orders Ordered: Bisacodyl (Bisacodyl 10 Mg Supp) 10 mg MT DAILY PRN PRN Reason: Constipation Hydromorphone HCl (Hydromorphone 0.5 Mg Inj) 0.5 mg IV Q2H PRN PRN Reason: Pain, Severe (7-10) Last Admin: 04/18/24 18:30 Dose: 0.5 mg Documented By: Admin: 04/18/24 16:40 Dose: 0.5 mg Documented By: Admin: 04/18/24 14:52 Dose: 0.5 mg Documented By: Admin: 04/18/24 12:38 Dose: 0.5 mg Documented By: Admin: 04/18/24 10:20 Dose: 0.5 mg Documented By: Admin: 04/18/24 08:25 Dose: 0.5 mg Documented By: MS Ceftriaxone Sodium 1,000 mg/ (Sodium Chloride) 100 mls @ 200 mls/hr IV Q24H SANDRO Sodium Chloride (Normal Saline 0.9%) 1,000 mls @ 150 mls/hr IV CONT SANDRO Last Infusion: 04/18/24 22:01 Dose: Infused Documented By: Admin: 04/18/24 15:03 Dose: 150 mls/hr Documented By: MS Dextrose/Sodium Chloride (Dextrose 5%-0.9% Ns) 1,000 mls @ 150 mls/hr IV CONT SANDRO Last Admin: 04/18/24 22:30 Dose: 150 mls/hr Documented By: JUSTYN Lorazepam (Lorazepam 2 Mg/Ml Inj) 0.5 mg IV Q2HR PRN PRN Reason: Anxiety Last Admin: 04/18/24 18:29 Dose: 0.5 mg Documented By: Admin: 04/18/24 16:40 Dose: 0.5 mg Documented By: Admin: 04/18/24 15:04 Dose: 0.5 mg Documented By: Admin: 04/18/24 12:58 Dose: 0.5 mg Documented By: Admin: 04/18/24 08:25 Dose: 0.5 mg Documented By: MS Metoprolol Tartrate (Metoprolol Tartrate 5 Mg/5 Ml Inj) 5 mg IV Q2HR PRN PRN Reason: for HRT>120 Naloxone HCl (Naloxone 0.4 Mg/Ml Vial) 0.2 mg IV Q2MIN PRN PRN Reason: Opiate Reversal Ondansetron HCl (Ondansetron 4 Mg/2 Ml Inj) 4 mg IV Q4HR PRN PRN Reason: nausea Last Admin: 04/18/24 16:41 Dose: 4 mg Documented By: Admin: 04/18/24 08:25 Dose: 4 mg Documented By: MS Pantoprazole Sodium (Pantoprazole 40 Mg Vial) 40 mg IV DAILY SANDRO Last Admin: 04/18/24 08:25 Dose: 40 mg Documented By: MS Promethazine HCl (Promethazine 12.5 Mg Supp) 12.5 mg MT Q6HR PRN PRN Reason: Nausea And Vomiting Discontinued Medications Sodium Chloride (Normal Saline 0.9%) 1,000 mls @ 1,000 mls/hr IV BOLUS ONE Stop: 04/18/24 00:21 Last Infusion: 04/18/24 00:39 Dose: Infused Documented By: Admin: 04/17/24 23:31 Dose: 1,000 mls/hr Documented By: JERALD Ceftriaxone Sodium 1,000 mg/ (Sodium Chloride) 100 mls @ 200 mls/hr IV NOW ONE Stop: 04/17/24 23:23 Last Infusion: 04/18/24 00:42 Dose: Infused Documented By: Admin: 04/18/24 00:07 Dose: 200 mls/hr Documented By: JERALD Sodium Chloride (Normal Saline 0.9%) 1,000 mls @ 150 mls/hr IV CONT SANDRO Last Admin: 04/18/24 01:03 Dose: 150 mls/hr Documented By: SB Sodium Chloride (Normal Saline 0.45%) 1,000 mls @ 100 mls/hr IV CONT SANDRO Last Infusion: 04/18/24 15:00 Dose: Infused Documented By: Infusion: 04/18/24 14:57 Dose: 150 mls/hr Documented By: Infusion: 04/18/24 14:52 Dose: 150 mls/hr Documented By: Admin: 04/18/24 14:05 Dose: 100 mls/hr Documented By: Infusion: 04/18/24 13:58 Dose: Infused Documented By: Admin: 04/18/24 03:58 Dose: 100 mls/hr Documented By: CM Vital Signs Vital signs: Vital Signs - 8 hr 04/17/24 22:56 04/17/24 22:58 04/17/24 23:00 Temperature 98.5 F Pulse Rate 118 H 118 H 119 H Respiratory Rate 16 35 H 36 H Blood Pressure 107/69 Pulse Oximetry 90 L 92 92 Oxygen Delivery Method Room Air Oxygen Flow Rate 04/17/24 23:30 04/17/24 23:33 04/17/24 23:33 Temperature Pulse Rate 117 H 119 H Respiratory Rate 40 H 30 H Blood Pressure 111/77 Pulse Oximetry 96 82 L 90 L Oxygen Delivery Method Room Air Oximask Oxygen Flow Rate 2 04/17/24 23:40 04/17/24 23:40 04/18/24 00:08 Temperature Pulse Rate 108 H 108 H Respiratory Rate 38 H 29 H Blood Pressure 131/73 Pulse Oximetry 92 97 Oxygen Delivery Method Oxygen Flow Rate 04/18/24 00:08 04/18/24 00:10 04/18/24 00:10 Temperature Pulse Rate 107 H Respiratory Rate 34 H Blood Pressure 125/79 117/71 Pulse Oximetry 96 Oxygen Delivery Method Oxygen Flow Rate 04/18/24 00:20 04/18/24 00:20 04/18/24 00:30 Temperature Pulse Rate 98 H Respiratory Rate 32 H Blood Pressure 119/65 122/68 Pulse Oximetry 97 Oxygen Delivery Method Oxygen Flow Rate 04/18/24 00:30 04/18/24 00:40 04/18/24 00:40 Temperature Pulse Rate 101 H 101 H Respiratory Rate 30 H 29 H Blood Pressure 117/65 Pulse Oximetry 97 98 Oxygen Delivery Method Oxygen Flow Rate 04/18/24 00:50 04/18/24 00:50 04/18/24 01:00 Temperature Pulse Rate 103 H 104 H Respiratory Rate 30 H 30 H Blood Pressure 111/63 Pulse Oximetry 96 97 Oxygen Delivery Method Oxygen Flow Rate 04/18/24 01:00 04/18/24 01:10 04/18/24 01:10 Temperature Pulse Rate 105 H Respiratory Rate 29 H Blood Pressure 113/69 101/60 Pulse Oximetry 96 Oxygen Delivery Method Oximask Oxygen Flow Rate 2 04/18/24 01:20 04/18/24 01:20 04/18/24 01:30 Temperature Pulse Rate 104 H Respiratory Rate 30 H Blood Pressure 99/57 L 101/60 Pulse Oximetry 95 Oxygen Delivery Method Oxygen Flow Rate 04/18/24 01:30 04/18/24 01:40 04/18/24 01:40 Temperature Pulse Rate 104 H 106 H Respiratory Rate 28 H 22 Blood Pressure 106/62 Pulse Oximetry 95 96 Oxygen Delivery Method Oxygen Flow Rate 04/18/24 01:50 04/18/24 01:50 Temperature Pulse Rate 106 H Respiratory Rate 30 H Blood Pressure 109/65 Pulse Oximetry 93 Oxygen Delivery Method Oxygen Flow Rate MDM - Altered Mental Status Lab Data Attestation: I reviewed the patient's lab results. Lab results narrative: White blood cell count 38321, hemoglobin 15.8, platelets adequate. BUN 43 with creatinine 2.8, increased from 23/1.7 in January 2024, increased from 26/1.4 in August 2023. Lactate 2.3 elevated. Potassium 5.2. Glucose 114. Urinalysis negative. UDS negative. 04/17/24 22:45 04/17/24 22:45 Labs: Lab Results 04/17/24 04/17/24 04/18/24 Range/Units 22:45 23:20 00:37 WBC 17.7 H (4.5-11.0) X10^3/uL RBC 5.35 (4.5-5.9) X10^6/uL Hgb 15.8 (13.5-17.5) g/dL Hct 47.3 (41-53) % MCV 88.4 (80-100) fL MCH 29.5 (26-34) PG MCHC 33.3 (30-36) % RDW 14.3 (11.6-14.8) % Plt Count 428 H (150-400) X10^3/uL Neut % (Auto) 93.4 H (50-75) % Lymph % (Auto) 2.6 L (25-40) % [place] % (Auto) 3.5 (3-14) % Eos % (Auto) 0.0 L (2-4) % Baso % (Auto) 0.5 (0-2) % Neut # (Auto) 65248 H (9329-1728) /uL Lymph # (Auto) 500 L (8703-0565) /uL [place] # (Auto) 600 (0-900) /uL Eos # (Auto) 0 (0-450) /uL Baso # (Auto) 100 (0-100) /uL Sodium 144 (137-145) mmol/L Potassium 5.2 H (3.4-5.1) mmol/L Chloride 105 (98-107) mmol/L Carbon Dioxide 21 L (22-32) mmol/L BUN 43 H (9-20) mg/dL Creatinine 2.89 H (0.66-1.25) mg/dL Estimated GFR 22 L (>60) mL/min BUN/Creatinine Ratio 14.9 (6-22) Glucose 114 H (80-110) mg/dL Lactate 2.3 H (0.7-2.1) mmol/L Calcium 9.5 (8.4-10.2) mg/dL Total Bilirubin 0.7 (0.2-1.3) mg/dL AST 41 (17-59) IU/L ALT 40 (<50) IU/L Alkaline Phosphatase 72 (38-126) U/L Ammonia < 9 L (9-30) umol/L NT-Pro-B Natriuret Pep 4990 H (<450) pg/mL Total Protein 9.2 H (6.3-8.2) g/dL Albumin 4.4 (3.5-5.0) g/dL Globulin 4.8 H (1.7-4.1) g/dL Albumin/Globulin Ratio 0.9 L (1.0-2.8) Urine Color Dark yellow Urine Appearance Clear Urine pH 5.0 (4.5-8.0) Ur Specific [place] >=1.030 H (1.000-1.035) Urine Protein 1+ H (Negative) Urine Glucose (UA) Negative (Negative) g/dL Urine Ketones 1+ H (NEGATIVE) Urine Occult Blood 2+ H (Negative) Urine Nitrate Negative (Negative) Urine Bilirubin 1+ H (NEGATIVE) Ur Bilirubin Confirm Negative (Negative) Urine Urobilinogen 0.2 (0.2) E.U./dL Ur Leukocyte Esterase Negative (NEGATIVE) Urine RBC 10-30/hpf H (0-5/HPF) Urine WBC 0-1/hpf (0-5/HPF) Ur Squamous Epith Cells 0-1 /hpf (0-5/HPF) Ur Transition Epith Cell 1-5/hpf (0-5/HPF) Amorphous Sediment 2+ Urine Bacteria Many (>30) H (None) Hyaline Casts 0-1/lpf (None) Urine Mucus 2+ H (Negative) Ur Culture Indicated? Cult not indicated Vol Urine Centrifuged 10ml (spun) U Opiates 300ng/mL cut Negative (Negative) Ur Oxycodone Screen Negative (Negative) Urine Methadone Screen Negative (Negative) Ur Barbiturates Screen Negative (Negative) U Tricyclic Antidepress Negative (Negative) Ur Phencyclidine Scrn Negative (Negative) Ur Amphetamines Screen Negative (Negative) U Methamphetamines Scrn Negative (Negative) Ur MDMA Scrn (Ecstasy) Negative (Negative) U Benzodiazepines Scrn Negative (Negative) Urine Cocaine Screen Negative (Negative) U Marijuana (THC) Screen Negative (Negative) Urine Specific [place] (Normal) Ur Creatinine (Normal) 04/18/24 04/18/24 Range/Units 00:37 01:38 WBC (4.5-11.0) X10^3/uL RBC (4.5-5.9) X10^6/uL Hgb (13.5-17.5) g/dL Hct (41-53) % MCV (80-100) fL MCH (26-34) PG MCHC (30-36) % RDW (11.6-14.8) % Plt Count (150-400) X10^3/uL Neut % (Auto) (50-75) % Lymph % (Auto) (25-40) % [place] % (Auto) (3-14) % Eos % (Auto) (2-4) % Baso % (Auto) (0-2) % Neut # (Auto) (6563-1902) /uL Lymph # (Auto) (4161-6998) /uL [place] # (Auto) (0-900) /uL Eos # (Auto) (0-450) /uL Baso # (Auto) (0-100) /uL Sodium (137-145) mmol/L Potassium (3.4-5.1) mmol/L Chloride (98-107) mmol/L Carbon Dioxide (22-32) mmol/L BUN (9-20) mg/dL Creatinine (0.66-1.25) mg/dL Estimated GFR (>60) mL/min BUN/Creatinine Ratio (6-22) Glucose (80-110) mg/dL Lactate 1.7 (0.7-2.1) mmol/L Calcium (8.4-10.2) mg/dL Total Bilirubin (0.2-1.3) mg/dL AST (17-59) IU/L ALT (<50) IU/L Alkaline Phosphatase (38-126) U/L Ammonia (9-30) umol/L NT-Pro-B Natriuret Pep (<450) pg/mL Total Protein (6.3-8.2) g/dL Albumin (3.5-5.0) g/dL Globulin (1.7-4.1) g/dL Albumin/Globulin Ratio (1.0-2.8) Urine Color Urine Appearance Urine pH Normal (4.5-8.0) Ur Specific [place] (1.000-1.035) Urine Protein (Negative) Urine Glucose (UA) (Negative) g/dL Urine Ketones (NEGATIVE) Urine Occult Blood (Negative) Urine Nitrate (Negative) Urine Bilirubin (NEGATIVE) Ur Bilirubin Confirm (Negative) Urine Urobilinogen (0.2) E.U./dL Ur Leukocyte Esterase (NEGATIVE) Urine RBC (0-5/HPF) Urine WBC (0-5/HPF) Ur Squamous Epith Cells (0-5/HPF) Ur Transition Epith Cell (0-5/HPF) Amorphous Sediment Urine Bacteria (None) Hyaline Casts (None) Urine Mucus (Negative) Ur Culture Indicated? Vol Urine Centrifuged U Opiates 300ng/mL cut (Negative) Ur Oxycodone Screen (Negative) Urine Methadone Screen (Negative) Ur Barbiturates Screen (Negative) U Tricyclic Antidepress (Negative) Ur Phencyclidine Scrn (Negative) Ur Amphetamines Screen (Negative) U Methamphetamines Scrn (Negative) Ur MDMA Scrn (Ecstasy) (Negative) U Benzodiazepines Scrn (Negative) Urine Cocaine Screen (Negative) U Marijuana (THC) Screen (Negative) Urine Specific [place] Normal (Normal) Ur Creatinine Normal (Normal) Point of Care Testing Glucose POC 118 Imaging Data Chest x-ray: Radiologist's Impression: [address] [address] XRay Report Signed Patient: Raymundo Oliver MR#: [id number] : 1945 Acct:[id number] Age/Sex: 78 / M Date of Service: 04/17/24 Loc: ED Accession Number: [id number] Procedure: XR chest 1V Ordering Provider: Seth Farooq MD PROCEDURE: XR CHEST 1V INDICATIONS: altered mental status TECHNIQUE: One view of the chest was acquired. COMPARISON: [facility], CR, XR CHEST 1V, 01/15/2024, 11:45. [facility], CR, XR CHEST 1V, 09/04/2019, 19:16. FINDINGS: Surgical changes and devices: Metallic densities overlying the epigastric region. TAVR stent. Lungs and pleura: Low lung volumes. No focal lung consolidation. No pleural effusions or pneumothorax. Mediastinum: Aortic arch calcifications. Mediastinal contours appear normal. Heart size is normal. Bones and chest wall: No suspicious bony lesions. Overlying soft tissues appear unremarkable. IMPRESSION: No acute cardiothoracic process. Dictated by: Bryce Pinzon M.D. on 04/18/2024 at 0:31 Approved by: Bryce Pinzon M.D. on 04/18/2024 at 0:32 CT scan - head: Radiologist's Impression: [address] [address] XRay Report Signed Patient: Raymundo Oliver MR#: [id number] : 1945 Acct:[id number] Age/Sex: 78 / M Date of Service: 04/17/24 Loc: ED Accession Number: [id number] Procedure: XR chest 1V Ordering Provider: Seth Farooq MD PROCEDURE: XR CHEST 1V INDICATIONS: altered mental status TECHNIQUE: One view of the chest was acquired. COMPARISON: [facility], CR, XR CHEST 1V, 01/15/2024, 11:45. [facility], CR, XR CHEST 1V, 09/04/2019, 19:16. FINDINGS: Surgical changes and devices: Metallic densities overlying the epigastric region. TAVR stent. Lungs and pleura: Low lung volumes. No focal lung consolidation. No pleural effusions or pneumothorax. Mediastinum: Aortic arch calcifications. Mediastinal contours appear normal. Heart size is normal. Bones and chest wall: No suspicious bony lesions. Overlying soft tissues appear unremarkable. IMPRESSION: No acute cardiothoracic process. Dictated by: Bryce Pinzon M.D. on 04/18/2024 at 0:31 Approved by: Bryce Pinzon M.D. on 04/18/2024 at 0:32 CT scan - abdomen/pelvis: Radiologist's Impression: [place] [address] CT Scan Report Signed Patient: Raymundo Oliver MR#: [id number] : 1945 Acct:[id number] Age/Sex: 78 / M Date of Service: 04/17/24 Loc: ED Accession Number: [id number] Procedure: CT abdomen pelvis wo con Ordering Provider: Seth Farooq MD PROCEDURE: CT ABDOMEN PELVIS WO CON INDICATIONS: R abd pain/tend, creat 2.8 TECHNIQUE: Axial sections were acquired from the lung bases to the pubic symphysis. Coronal and sagittal reformats were performed. For radiation dose reduction, the following was used: automated exposure control, adjustment of mA and/or kV according to patient size. COMPARISON: None. FINDINGS: Image quality: Diagnostic. Peritoneum: No pneumoperitoneum or ascites. Bones: No acute osseous abnormality. Lower Chest: TAVR stent. Moderate coronary artery calcifications.. Liver: Normal in size and contour. Gallbladder: No stones or pericholecystic fluid. Biliary tree: No intrahepatic or extrahepatic biliary ductal dilatation. Pancreas: Within normal limits. Spleen: Normal in size and contour. Kidneys: No hydronephrosis or obstructive urolithiasis. Atrophic appearance of the kidneys Adrenals: No adrenal nodularity. Bladder: Normal in size and wall thickness. : Status post prostatectomy.. Stomach: Normal in size and contour. Bowel: Status post possible partial right hemicolectomy (please correlate with surgical records). Nonvisualization of the appendix without secondary signs of acute appendicitis. Distal colonic diverticulosis. Borderline dilated small bowel loops up to 2.5 cm in the central-lower abdomen with a gradual transition point in the mid abdomen (47-35). Lymph Nodes: No retroperitoneal, mesenteric, or inguinal lymphadenopathy. Vascular: No abdominal aortic aneurysm. Moderate atherosclerosis.. Soft Tissues: Small bilateral fat containing inguinal hernias. Diffuse muscle atrophy. IMPRESSION: 1. Partial small bowel obstruction. 2. Atrophic appearance of the kidneys without hydronephrosis or obstructive urolithiasis. Dictated by: Bryce Pinzon M.D. on 04/18/2024 at 0:40 Approved by: Bryce Pinzon M.D. on 04/18/2024 at 0:46 ECG Data Attestation: I personally reviewed and interpreted this ECG as follows: Interpretation: Sinus tachycardia with rate 119, no obvious ST segment elevation or depression changes. MT 172, QRS 72, QTC 447. MDM Narrative Medical decision making narrative: 78-year-old male with altered mental status noticed by [facility] facility staff. On Eliquis, unclear indication. No known craniofacial trauma, none by exam. Patient looking around, able to state his name, knows that he is in the hospital. Has tenderness right abdomen on exam. CT head, CTA head and neck vessels, CT abdomen and pelvis with IV contrast ordered if GFR favorable, noncontrast studies head and abdomen and pelvis if GFR poor. Blood cultures requested, lactate added, urinalysis pending. Chest x-ray no acute changes, see radiology report. BUN creatinine elevation compared to studies in January 2024 and August 2023. White blood cell count 47132 elevated, lactate 2.3 also elevated. Blood cultures requested. IV ceftriaxone. Urine suspicious for infection, IV ceftriaxone given prior. CT head no acute changes, but large ex-vacuo dilatation right lateral ventricles noted, old stroke changes. See radiology report. CT abdomen and pelvis shows partial small bowel obstruction, atrophic appearance of kidneys without hydronephrosis or obstructive urolithiasis. See radiology report. We will contact family, regarding admission here. Case discussed with patient's sister Lucia Oliver, , who states that she is medical power of transportation maintenance supervisor. Lab and imaging results and clinical status relayed, being treated for possible urine infection, partial small-bowel obstruction changes, acute kidney injury compared to BUN creatinine/GFR studies available last year, advised admission to the hospital. She is agreeable. She reiterates DNR code status. 0130, case discussed with surgery Dr. Rubio. Requests NG tube placement, patient can have Gastrografin small-bowel follow-through tomorrow. He can consult. Admit to hospitalist service. Hospitalist paged. [phone], case discussed with hospitalist Dr. Killian who accepts patient for admission to inpatient Critical Care Time Critical Care Time Critical Care Time: Yes Total Critical Care Time: 35 Attestation: The high probability of a clinically significant, sudden or life threatening deterioration of the [gastrointestinal, cerebrovascular, neurologic] system(s) required my full and direct attention, intervention and personal management. The aggregate critical care time was [35] minutes. This time is in addition to time spent performing reported procedures but includes the following: [x] Data Review and interpretation [x] Patient assessment and monitoring of vital signs [x] Documentation [x] Medication orders and management Discharge Plan Departure Patient Disposition: Admitted As Inpatient Clinical Impression: Altered mental status, Urinary tract infection, PERI (acute kidney injury), Renal atrophy, bilateral, Partial obstruction of small intestine Admit Date/Time: 04/18/24 02:09 Admit Provider: Stevie Archuleta
[2024-04-17 23:16] LABS: Add Manual Diff / Slide Review NO; Basophils Absolute Auto 100 /uL (0-100); Basophils Percent Auto 0.5 % (0-2); Eosinophils Absolute Auto 0 /uL (0-450); Hematocrit 47.3 % (41-53); Hemoglobin 15.8 g/dL (13.5-17.5); Lymphocytes Absolute Auto 500 /uL (1100-4500); Lymphocytes Percent Auto 2.6 % (25-40); Mean Corpuscular HGB Conc 33.3 % (30-36); Mean Corpuscular Hemoglobin 29.5 PG (26-34); Mean Corpuscular Volume 88.4 fL (80-100); Monocytes Absolute Auto 600 /uL (0-900); Monocytes Percent Auto 3.5 % (3-14); Neutrophils Absolute Auto 16600 /uL (1500-7000); Neutrophils Percent Auto 93.4 % (50-75); Platelet Count 428 X10^3/uL (150-400); Red Blood Cell Count 5.35 X10^6/uL (4.5-5.9); Red Cell Distribution Width 14.3 % (11.6-14.8); White Blood Cell Count 17.7 X10^3/uL (4.5-11.0)
[2024-04-17 23:20] LABS: Lactate (Lactic Acid) 2.3 mmol/L (0.7-2.1)
[2024-04-17 23:21] LABS: Alanine Aminotransferase 40 IU/L (<50); Albumin 4.4 g/dL (3.5-5.0); Albumin Globulin Ratio 0.9 (1.0-2.8); Alkaline Phosphatase 72 U/L (38-126); Aspartate Aminotransferase 41 IU/L (17-59); BUN Creatinine Ratio 14.9 (6-22); Bilirubin Total 0.7 mg/dL (0.2-1.3); Blood Urea Nitrogen 43 mg/dL (9-20); Calcium 9.5 mg/dL (8.4-10.2); Carbon Dioxide 21 mmol/L (22-32); Chloride 105 mmol/L (98-107); Estimated Glomerular Filt Rate 22 mL/min (>60); Globulin 4.8 g/dL (1.7-4.1); Glucose 114 mg/dL (80-110); HEMOLYSIS 27 (0-50); Sodium 144 mmol/L (137-145); Total Protein 9.2 g/dL (6.3-8.2)
[2024-04-17 23:22] LABS: Potassium 5.2 mmol/L (3.4-5.1)
[2024-04-17 23:30] VITALS: PULSE 117; RESP 40; O2SAT 96
--- NOTE | 2024-04-17 23:30 | DI.CT.S_ITS ---
PROCEDURE: CT ABDOMEN PELVIS WO CON INDICATIONS: R abd pain/tend, creat 2.8 TECHNIQUE: Axial sections were acquired from the lung bases to the pubic symphysis. Coronal and sagittal reformats were performed. For radiation dose reduction, the following was used: automated exposure control, adjustment of mA and/or kV according to patient size. COMPARISON: None. FINDINGS: Image quality: Diagnostic. Peritoneum: No pneumoperitoneum or ascites. Bones: No acute osseous abnormality. Lower Chest: TAVR stent. Moderate coronary artery calcifications.. Liver: Normal in size and contour. Gallbladder: No stones or pericholecystic fluid. Biliary tree: No intrahepatic or extrahepatic biliary ductal dilatation. Pancreas: Within normal limits. Spleen: Normal in size and contour. Kidneys: No hydronephrosis or obstructive urolithiasis. Atrophic appearance of the kidneys Adrenals: No adrenal nodularity. Bladder: Normal in size and wall thickness. : Status post prostatectomy.. Stomach: Normal in size and contour. Bowel: Status post possible partial right hemicolectomy (please correlate with surgical records). Nonvisualization of the appendix without secondary signs of acute appendicitis. Distal colonic diverticulosis. Borderline dilated small bowel loops up to 2.5 cm in the central-lower abdomen with a gradual transition point in the mid abdomen (4/47-35). Lymph Nodes: No retroperitoneal, mesenteric, or inguinal lymphadenopathy. Vascular: No abdominal aortic aneurysm. Moderate atherosclerosis.. Soft Tissues: Small bilateral fat containing inguinal hernias. Diffuse muscle atrophy. IMPRESSION: 1. Partial small bowel obstruction. 2. Atrophic appearance of the kidneys without hydronephrosis or obstructive urolithiasis. Dictated by: Bryce Pinzon M.D. on 04/18/2024 at 0:40 Approved by: Bryce Pinzon M.D. on 04/18/2024 at 0:46
[2024-04-17] MEDS: SODIUM CHLORIDE 0.9% 1,000 ML 1000 ML IV (23:31)
[2024-04-17 23:33] VITALS: BP 111/77; PULSE 119; RESP 30; O2SAT 82; O2SAT 90
[2024-04-17 23:40] VITALS: BP 131/73; PULSE 108; RESP 38; O2SAT 92
--- NOTE | 2024-04-17 23:45 | PC.NURSE ---
Pt placed on 2L via oximask after patient desats to 82% on RA. Breathing pattern in irregular at times with long pauses in respirations.
[2024-04-17 23:51] LABS: Ammonia (NH3) < 9 umol/L (9-30)
--- NOTE | 2024-04-17 23:53 | PC.NURSE ---
Pt is slow to respond during NIH assessment and has periods where he appears to become more drowsy and less responsive. He will open eyes and respond to voice.
[2024-04-18] VITALS (31 sets, daily range): BP systolic 99–140; BP diastolic 57–88; PULSE 74–109; RESP 18–93; TEMP 36.3–36.6; O2SAT 92–98; BMI 29.8
--- NOTE | 2024-04-18 | DI.RAD.S_ITS ---
PROCEDURE: XR GASTROGRAFIN CHALLENGE COMPARISON: None. INDICATIONS: PSBO FINDINGS: Images of the abdomen obtained 4 hours post administration of oral contrast demonstrate an enteric tube within the gastric body. There is dense opacification of contrast within the stomach, with dilute contrast within the proximal small bowel. The proximal small bowel remains dilated at 3.6 cm. There is non opacification of contrast in the colon. IMPRESSION: Persistent small bowel obstruction. Dictated by: Bryce Pinzon M.D. on 04/18/2024 at 20:14 Approved by: Bryce iPnzon M.D. on 04/18/2024 at 20:16
[2024-04-18] MEDS: cefTRIAXone 1,000 MG in SODIUM CHLORIDE 0.9% 100 ML 200 MG IV (00:07)
[2024-04-18 00:46] LABS: Appearance Urine UA CLEAR; Bilirubin Urine UA 1+ (NEGATIVE); Glucose Urine UA NEGATIVE (Negative); Ketones Urine UA 1+ (NEGATIVE); Leukocyte Esterase Urine UA NEGATIVE (NEGATIVE); Nitrite Urine UA NEGATIVE (Negative); Occult Blood Urine UA 2+ (Negative); Protein Urine UA 1+ (Negative); Specific Gravity Urine UA >=1.030 (1.000-1.035); Urobilinogen Urine UA 0.2 E.U./dL (0.2)
[2024-04-18 00:47] LABS: Reflexed Lactate in 2 Hours Y
[2024-04-18 00:50] LABS: Ur Creatinine Normal (Normal); Ur Specific Gravity Normal (Normal); Urine Amphetamines Negative (Negative); Urine Barbiturates Negative (Negative); Urine Benzodiazepines Negative (Negative); Urine Cocaine Negative (Negative); Urine MDMA Negative (Negative); Urine Methadone Negative (Negative); Urine Methamphetamines Negative (Negative); Urine Opiates Negative (Negative); Urine Oxycodone Negative (Negative); Urine Phencyclidine Negative (Negative); Urine THC Negative (Negative); Urine Tricyclic Antidepressant Negative (Negative); Urine pH Normal (Normal)
[2024-04-18 00:53] LABS: Color Urine UA Dark Yellow
[2024-04-18 00:54] LABS: Ictotest Urine Negative (Negative); Urine Volume 10mL (spun)
[2024-04-18 00:55] LABS: Mucus Urine 2+ (Negative); RBC Urine 10-30/HPF (0-5/HPF); Squamous Epithelial Cell Urine 0-1 /HPF (0-5/HPF); WBC Urine 0-1/HPF (0-5/HPF)
[2024-04-18 00:56] LABS: Transitional Epi Cells Urine 1-5/HPF (0-5/HPF)
[2024-04-18 00:58] LABS: Amorphous Sediment Urine 2+; Bacteria Urine Many (>30)
[2024-04-18 00:59] LABS: Culture Indicated Urine Cult Not Indicated; Hyaline Casts Urine 0-1/LPF
[2024-04-18] MEDS: SODIUM CHLORIDE 0.9% 1,000 ML 150 ML IV ×2 (01:03→15:03)
--- NOTE | 2024-04-18 01:22 | PC.NURSE ---
Pt resting quietly with eyes closed, resps even and not labored. No distress noted at this time. Pt remains connected to cardiac, resp, blood pressure, and pulse ox monitors with alarms on and audible.Right wrist PIV infusing maintenance fluids without complication. Call light within reach. Exam room door remains open for frequent patient observation.
[2024-04-18 01:23] LABS: NT-proBNP (BNP-Adult 18+) 4990 pg/mL (<450)
--- NOTE | 2024-04-18 01:41 | PC.NURSE ---
Labs drawn from right wrist PIV without complication.
[2024-04-18 01:57] LABS: Lactate 2HR (Lactic Acid Rflx) 1.7 mmol/L (0.7-2.1)
--- NOTE | 2024-04-18 02:03 | PC.NURSE ---
Condom cath placed at this time
--- NOTE | 2024-04-18 02:42 | PM.HP.1 ---
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 Workup showing acute on chronic renal failure, UTI and SBO. He does have a history of partial Rt hemicolectomy. CT - Borderline dilated small bowel loops up to 2.5 cm in the central-lower abdomen with a gradual transition point in the mid abdomen He is unable to provide any meaningful history, likely due to acute encephalopathy. Upon admission he had explosive vomiting and had NGT placed for low intermittent suction. Discussed with surgeon, Dr Rubio who will consult and possibly attempt Gastrografin small-bowel follow-through. [facility] Medical History (Updated 04/18/24 @ 07:24 by Stevie Killian MD) Hemiparesis affecting left side as late effect of cerebrovascular accident History of malignant neoplasm of prostate Prostate cancer Urinary incontinence, mixed Lower urinary tract symptoms (LUTS) Urinary incontinence without sensory awareness Family history of prostate cancer Prostate cancer CVA (cerebral vascular accident) Elevated PSA Male erectile disorder Prostate cancer Alcohol dependence Major depressive disorder, single episode, severe without psychotic features Hypercholesterolemia Hypertension Chronic low back pain Surgical History (Updated 04/18/24 @ 07:24 by Stevie Killian MD) H/O aortic valve replacement Total knee replacement status H/O prostate biopsy H/O colectomy History of prostatectomy History of bilateral knee replacement Family History Father Cancer Alcohol abuse Social History marital status: details: 7 yrs ago number of children: 3 household members: none lives independently: Yes caregiver/support person: No housing: condominium pets and animals: No education level: high school occupational status: other current occupational exposures/hazards: No Smoking Status: Current some day smoker alcohol intake: current substance use type: marijuana during the past year weight has: remained stable well-balanced diet: daily or most days Type(s) of exercise: aerobic additional social history: Born and raised in [facility]. Grew up in an intact family. High school Education. 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 Meds Home Medications and Allergies Home Medications Medication Instructions Recorded Confirmed Type multivitamin 1 tab PO DAILY ##0 11/08/12 02/12/22 History vitamin B complex (B 1 tab PO QDAY ##0 09/18/16 02/12/22 History Complex-Vitamin B12 tablet) biosooth PO DAILY 10/25/19 02/12/22 History ferrous sulfate 325 mg (65 mg 325 mg PO DAILY 10/25/19 02/12/22 History iron) tablet (FeroSul) triamcinolone acetonide 55 mcg 1 spray intranasal DAILY 11/18/19 02/12/22 History nasal spray aerosol fluoxetine 20 mg capsule (Prozac) 20 mg PO DAILY #90 caps 12/20/19 02/12/22 Rx apixaban 5 mg tablet (Eliquis) 5 mg PO BID 05/21/21 02/12/22 History atorvastatin 20 mg tablet (Lipitor) 40 mg PO HS #0 tabs 05/21/21 02/12/22 History mirtazapine 30 mg tablet 30 mg PO BEDTIME 05/21/21 02/12/22 History omega-3 fatty acids-fish oil 340 1 cap PO DAILY 05/21/21 02/12/22 History mg-1,000 mg capsule (Fish Oil) pantoprazole 40 mg tablet,delayed 40 mg PO DAILY 05/21/21 02/12/22 History release sennosides 8.6 mg capsule (senna) 8.6 mg PO DAILY 05/21/21 02/12/22 History alpha lipoic acid 200 mg capsule 200 mg PO DAILY 08/13/21 02/12/22 History metoprolol succinate 25 mg 25 mg PO DAILY #30 tabs 01/15/24 Rx tablet,extended release 24 hr Allergies Allergy/AdvReac Type Severity Reaction Status Date / Time No Known Drug Allergies Allergy Verified 02/12/22 09:56 fragrances Allergy Intermediate rash Uncoded 02/12/22 09:56 Review of Systems Review of Systems Narrative: Unobtainable due to acute metabolic encephalopathy and possible baseline cognitive deficits Exam Vital Signs (past 8 hours): - 04/17/24 22:56 04/17/24 22:58 04/17/24 23:00 Temperature 98.5 F Pulse Rate 118 H 118 H 119 H Respiratory Rate 16 35 H 36 H Blood Pressure 107/69 Pulse Oximetry 90 L 92 92 Oxygen Delivery Method Room Air Oxygen Flow Rate 04/17/24 23:30 04/17/24 23:33 04/17/24 23:33 Temperature Pulse Rate 117 H 119 H Respiratory Rate 40 H 30 H Blood Pressure 111/77 Pulse Oximetry 96 82 L 90 L Oxygen Delivery Method Room Air Oximask Oxygen Flow Rate 2 04/17/24 23:40 04/17/24 23:40 04/18/24 00:08 Temperature Pulse Rate 108 H 108 H Respiratory Rate 38 H 29 H Blood Pressure 131/73 Pulse Oximetry 92 97 Oxygen Delivery Method Oxygen Flow Rate 04/18/24 00:08 04/18/24 00:10 04/18/24 00:10 Temperature Pulse Rate 107 H Respiratory Rate 34 H Blood Pressure 125/79 117/71 Pulse Oximetry 96 Oxygen Delivery Method Oxygen Flow Rate 04/18/24 00:20 04/18/24 00:20 04/18/24 00:30 Temperature Pulse Rate 98 H Respiratory Rate 32 H Blood Pressure 119/65 122/68 Pulse Oximetry 97 Oxygen Delivery Method Oxygen Flow Rate 04/18/24 00:30 04/18/24 00:40 04/18/24 00:40 Temperature Pulse Rate 101 H 101 H Respiratory Rate 30 H 29 H Blood Pressure 117/65 Pulse Oximetry 97 98 Oxygen Delivery Method Oxygen Flow Rate 04/18/24 00:50 04/18/24 00:50 04/18/24 01:00 Temperature Pulse Rate 103 H 104 H Respiratory Rate 30 H 30 H Blood Pressure 111/63 Pulse Oximetry 96 97 Oxygen Delivery Method Oxygen Flow Rate 04/18/24 01:00 04/18/24 01:10 04/18/24 01:10 Temperature Pulse Rate 105 H Respiratory Rate 29 H Blood Pressure 113/69 101/60 Pulse Oximetry 96 Oxygen Delivery Method Oximask Oxygen Flow Rate 2 04/18/24 01:20 04/18/24 01:20 04/18/24 01:30 Temperature Pulse Rate 104 H Respiratory Rate 30 H Blood Pressure 99/57 L 101/60 Pulse Oximetry 95 Oxygen Delivery Method Oxygen Flow Rate 04/18/24 01:30 04/18/24 01:40 04/18/24 01:40 Temperature Pulse Rate 104 H 106 H Respiratory Rate 28 H 22 Blood Pressure 106/62 Pulse Oximetry 95 96 Oxygen Delivery Method Oxygen Flow Rate 04/18/24 01:50 04/18/24 01:50 Temperature Pulse Rate 106 H Respiratory Rate 30 H Blood Pressure 109/65 Pulse Oximetry 93 Oxygen Delivery Method Oxygen Flow Rate Oxygen Delivery Method Oximask Oxygen Flow Rate 2 Const Other: General - in no distress, sleeping, unable to participate with ROS when awake GI - NGT in place, quiet, distended abdomen CVS - RRR RS - normal respiratory effort Psych - encephalopathic Neuro - chronic Lt hemiparesis Objective Labs 04/17/24 22:45 04/17/24 22:45 Labs: Laboratory Results - last 24 hr 04/17/24 04/17/24 04/18/24 22:45 23:20 00:37 WBC 17.7 H RBC 5.35 Hgb 15.8 Hct 47.3 MCV 88.4 MCH 29.5 MCHC 33.3 RDW 14.3 Plt Count 428 H Neut % (Auto) 93.4 H Lymph % (Auto) 2.6 L [place] % (Auto) 3.5 Eos % (Auto) 0.0 L Baso % (Auto) 0.5 Neut # (Auto) 46265 H Lymph # (Auto) 500 L [place] # (Auto) 600 Eos # (Auto) 0 Baso # (Auto) 100 Sodium 144 Potassium 5.2 H Chloride 105 Carbon Dioxide 21 L BUN 43 H Creatinine 2.89 H Estimated GFR 22 L BUN/Creatinine Ratio 14.9 Glucose 114 H Lactate 2.3 H Calcium 9.5 Total Bilirubin 0.7 AST 41 ALT 40 Alkaline Phosphatase 72 Ammonia < 9 L NT-Pro-B Natriuret Pep 4990 H Total Protein 9.2 H Albumin 4.4 Globulin 4.8 H Albumin/Globulin Ratio 0.9 L Urine Color Dark yellow Urine Appearance Clear Urine pH 5.0 Ur Specific [place] >=1.030 H Urine Protein 1+ H Urine Glucose (UA) Negative Urine Ketones 1+ H Urine Occult Blood 2+ H Urine Nitrate Negative Urine Bilirubin 1+ H Ur Bilirubin Confirm Negative Urine Urobilinogen 0.2 Ur Leukocyte Esterase Negative Urine RBC 10-30/hpf H Urine WBC 0-1/hpf Ur Squamous Epith Cells 0-1 /hpf Ur Transition Epith Cell 1-5/hpf Amorphous Sediment 2+ Urine Bacteria Many (>30) H Hyaline Casts 0-1/lpf Urine Mucus 2+ H Ur Culture Indicated? Cult not indicated Vol Urine Centrifuged 10ml (spun) U Opiates 300ng/mL cut Negative Ur Oxycodone Screen Negative Urine Methadone Screen Negative Ur Barbiturates Screen Negative U Tricyclic Antidepress Negative Ur Phencyclidine Scrn Negative Ur Amphetamines Screen Negative U Methamphetamines Scrn Negative Ur MDMA Scrn (Ecstasy) Negative U Benzodiazepines Scrn Negative Urine Cocaine Screen Negative U Marijuana (THC) Screen Negative Urine Specific [place] Ur Creatinine 04/18/24 04/18/24 00:37 01:38 WBC RBC Hgb Hct MCV MCH MCHC RDW Plt Count Neut % (Auto) Lymph % (Auto) [place] % (Auto) Eos % (Auto) Baso % (Auto) Neut # (Auto) Lymph # (Auto) [place] # (Auto) Eos # (Auto) Baso # (Auto) Sodium Potassium Chloride Carbon Dioxide BUN Creatinine Estimated GFR BUN/Creatinine Ratio Glucose Lactate 1.7 Calcium Total Bilirubin AST ALT Alkaline Phosphatase Ammonia NT-Pro-B Natriuret Pep Total Protein Albumin Globulin Albumin/Globulin Ratio Urine Color Urine Appearance Urine pH Normal Ur Specific [place] Urine Protein Urine Glucose (UA) Urine Ketones Urine Occult Blood Urine Nitrate Urine Bilirubin Ur Bilirubin Confirm Urine Urobilinogen Ur Leukocyte Esterase Urine RBC Urine WBC Ur Squamous Epith Cells Ur Transition Epith Cell Amorphous Sediment Urine Bacteria Hyaline Casts Urine Mucus Ur Culture Indicated? Vol Urine Centrifuged U Opiates 300ng/mL cut Ur Oxycodone Screen Urine Methadone Screen Ur Barbiturates Screen U Tricyclic Antidepress Ur Phencyclidine Scrn Ur Amphetamines Screen U Methamphetamines Scrn Ur MDMA Scrn (Ecstasy) U Benzodiazepines Scrn Urine Cocaine Screen U Marijuana (THC) Screen Urine Specific [place] Normal Ur Creatinine Normal Assessment & Plan Assessment and plan (1) Partial obstruction of small intestine: Status: Acute (2) PERI (acute kidney injury): Status: Acute (3) Renal atrophy, bilateral: Status: Acute (4) Urinary tract infection: Status: Acute (5) Acute metabolic encephalopathy: Status: Acute (6) Hypertension: Status: Chronic (7) Alcohol dependence: Status: Chronic (8) Chronic low back pain: Status: Chronic (9) Urinary incontinence, mixed: Status: Acute (10) Hemiparesis affecting left side as late effect of cerebrovascular accident: Status: Acute Assessment & Plan narrative: SBO - has transition point - prior Rt hemicolectomy, likely adhesions - NPO, IVFs, antiemetics - Sx consultation, Gastrografin challenge PERI / CKD / Acute Cystitis / Hx of prostatectomy for carcinoma followed by incontinence - b/l renal atrophy - his renal function deteriorated from stage 3 a year ago to likely stage 4 - acutely worsened in the absence of obstruction and in part likely due to ATN - empiric Rocephin - IVFs GERD - PPI IV PAF / s/p TAVR / Renovascular HTN / Hx of Rt MCA CVA with chronic Lt Hemiparesis - obtain EKG - pending - Eliquis on hold - holding on anticoagulation this morning, consider Lovenox 1mg/kg if not going to OR Depression / Hx of psychotic episodes / Alcohol use - restart Prozac and mirtazapine with resumed PO - prn Ativan DVT prophylaxis - SCDs Time-Based Coding :: [TOTAL MINUTES] spent with patient and on the chart (including review of chart, obtaining history, exam, reviewing outside data, placing orders, documenting exam and treatment plan, and counseling patient) on [DATE].
--- NOTE | 2024-04-18 03:53 | DI.RAD.S_ITS ---
PROCEDURE: XR CHEST 1V INDICATIONS: NGT placement TECHNIQUE: One view of the chest was acquired. COMPARISON: [facility], CT, CT ABDOMEN PELVIS WO CON, 04/17/2024, 23:58. [facility], CR, XR CHEST 1V, 04/17/2024, 23:38. [facility], CR, XR CHEST 1V, 01/15/2024, 11:45. FINDINGS: Surgical changes and devices: Enteric tube coursing into the stomach. Metallic density projecting at in the left upper quadrant. TAVR stent. Lungs and pleura: Lungs appear clear. No pleural effusions or pneumothorax. Right costophrenic angle is outside the field of view. Mediastinum: Mediastinal contours appear unchanged. Heart size is prominent. Bones and chest wall: No suspicious bony lesions. Prior left-sided rib fracture. Overlying soft tissues appear unremarkable. IMPRESSION: Enteric tube coursing into the stomach. This report is concordant with the overnight preliminary interpretation. Dictated by: Steve Winters M.D. on 04/18/2024 at 7:55 Approved by: Steve Winters M.D. on 04/18/2024 at 7:57
[2024-04-18] MEDS: SODIUM CHLORIDE 0.45% 1,000 ML 100 ML IV ×2 (03:58→14:05)
--- NOTE | 2024-04-18 06:10 | PC.NURSE ---
Patient arrived from ED approximately 0330, after transferring patient from stretcher to bed, patient began to projectile vomit. Turned patient onto side, suctioned mouth. Patient vomited green emesis onto the floor. NGT placed per MD order, CXR verified placement, connected to LIS. Patient alert to self, date, and aware he is in the hospital. Patient is fatigued and has difficulty keeping eyes open and answering questions. NIH: 15, with left-sided deficits. MD notified of findings, assessed patient via pilot station cart. VSS, SpO2 96% on 2.5L NC. Plan of care ongoing.
--- NOTE | 2024-04-18 06:33 | PC.NURSE ---
^ blanchable in all red areas, skin is intact ^blanchable in all red areas, skin is intact
--- NOTE | 2024-04-18 07:52 | P.HP_ITS ---
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 Workup showing acute on chronic renal failure, UTI and SBO. He does have a history of partial Rt hemicolectomy. CT - Borderline dilated small bowel loops up to 2.5 cm in the central-lower abdomen with a gradual transition point in the mid abdomen He is unable to provide any meaningful history, likely due to acute encephalopathy. Upon admission he had explosive vomiting and had NGT placed for low intermittent suction. Discussed with surgeon, Dr Rubio who will consult and possibly attempt Gastrografin small-bowel follow-through. S: The patient is awake and calm. He was cognitive impairment. His sister is here, he identifies her as his mother. He denies any pain. [facility] Medical History Hemiparesis affecting left side as late effect of cerebrovascular accident History of malignant neoplasm of prostate Prostate cancer Urinary incontinence, mixed Lower urinary tract symptoms (LUTS) Urinary incontinence without sensory awareness Family history of prostate cancer Prostate cancer CVA (cerebral vascular accident) Elevated PSA Male erectile disorder Prostate cancer Alcohol dependence Major depressive disorder, single episode, severe without psychotic features Hypercholesterolemia Hypertension Chronic low back pain Surgical History H/O aortic valve replacement Total knee replacement status H/O prostate biopsy H/O colectomy History of prostatectomy History of bilateral knee replacement Family History Father Cancer Alcohol abuse Social History marital status: details: 7 yrs ago number of children: 3 household members: none lives independently: Yes caregiver/support person: No housing: condominium pets and animals: No education level: high school occupational status: other current occupational exposures/hazards: No Smoking Status: Current some day smoker alcohol intake: current substance use type: marijuana during the past year weight has: remained stable well-balanced diet: daily or most days Type(s) of exercise: aerobic additional social history: Born and raised in [facility]. Grew up in an intact family. High school Education. 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 Meds Home Medications and Allergies Home Medications Medication Instructions Recorded Confirmed Type multivitamin 1 tab PO DAILY ##0 11/08/12 02/12/22 History vitamin B complex (B 1 tab PO QDAY ##0 09/18/16 02/12/22 History Complex-Vitamin B12 tablet) biosooth PO DAILY 10/25/19 02/12/22 History ferrous sulfate 325 mg (65 mg 325 mg PO DAILY 10/25/19 02/12/22 History iron) tablet (FeroSul) triamcinolone acetonide 55 mcg 1 spray intranasal DAILY 11/18/19 02/12/22 History nasal spray aerosol fluoxetine 20 mg capsule (Prozac) 20 mg PO DAILY #90 caps 12/20/19 02/12/22 Rx apixaban 5 mg tablet (Eliquis) 5 mg PO BID 05/21/21 02/12/22 History atorvastatin 20 mg tablet (Lipitor) 40 mg PO HS #0 tabs 05/21/21 02/12/22 History mirtazapine 30 mg tablet 30 mg PO BEDTIME 05/21/21 02/12/22 History omega-3 fatty acids-fish oil 340 1 cap PO DAILY 05/21/21 02/12/22 History mg-1,000 mg capsule (Fish Oil) pantoprazole 40 mg tablet,delayed 40 mg PO DAILY 05/21/21 02/12/22 History release sennosides 8.6 mg capsule (senna) 8.6 mg PO DAILY 05/21/21 02/12/22 History alpha lipoic acid 200 mg capsule 200 mg PO DAILY 08/13/21 02/12/22 History metoprolol succinate 25 mg 25 mg PO DAILY #30 tabs 01/15/24 Rx tablet,extended release 24 hr Allergies Allergy/AdvReac Type Severity Reaction Status Date / Time No Known Drug Allergies Allergy Verified 02/12/22 09:56 fragrances Allergy Intermediate rash Uncoded 02/12/22 09:56 Review of Systems Review of Systems Narrative: All else reviewed and otherwise unremarkable except as noted in the history and physical. Exam Vital Signs (past 8 hours): - 04/18/24 00:08 04/18/24 00:08 04/18/24 00:10 Temperature Pulse Rate 108 H 107 H Respiratory Rate 29 H 34 H Blood Pressure 125/79 Pulse Oximetry 97 96 Oxygen Delivery Method Oxygen Flow Rate 04/18/24 00:10 04/18/24 00:20 04/18/24 00:20 Temperature Pulse Rate 98 H Respiratory Rate 32 H Blood Pressure 117/71 119/65 Pulse Oximetry 97 Oxygen Delivery Method Oxygen Flow Rate 04/18/24 00:30 04/18/24 00:30 04/18/24 00:40 Temperature Pulse Rate 101 H Respiratory Rate 30 H Blood Pressure 122/68 117/65 Pulse Oximetry 97 Oxygen Delivery Method Oxygen Flow Rate 04/18/24 00:40 04/18/24 00:50 04/18/24 00:50 Temperature Pulse Rate 101 H 103 H Respiratory Rate 29 H 30 H Blood Pressure 111/63 Pulse Oximetry 98 96 Oxygen Delivery Method Oxygen Flow Rate 04/18/24 01:00 04/18/24 01:00 04/18/24 01:10 Temperature Pulse Rate 104 H 105 H Respiratory Rate 30 H 29 H Blood Pressure 113/69 Pulse Oximetry 97 96 Oxygen Delivery Method Oximask Oxygen Flow Rate 2 04/18/24 01:10 04/18/24 01:20 04/18/24 01:20 Temperature Pulse Rate 104 H Respiratory Rate 30 H Blood Pressure 101/60 99/57 L Pulse Oximetry 95 Oxygen Delivery Method Oximask Oxygen Flow Rate 2 04/18/24 01:30 04/18/24 01:30 04/18/24 01:40 Temperature Pulse Rate 104 H 106 H Respiratory Rate 28 H 22 Blood Pressure 101/60 Pulse Oximetry 95 96 Oxygen Delivery Method Oximask Oximask Oxygen Flow Rate 2 2 04/18/24 01:40 04/18/24 01:50 04/18/24 01:50 Temperature Pulse Rate 106 H Respiratory Rate 30 H Blood Pressure 106/62 109/65 Pulse Oximetry 93 Oxygen Delivery Method Oximask Oxygen Flow Rate 2 04/18/24 02:00 04/18/24 02:00 04/18/24 02:10 Temperature Pulse Rate 106 H 107 H Respiratory Rate 31 H 31 H Blood Pressure 110/65 Pulse Oximetry 93 94 Oxygen Delivery Method Oximask Oxygen Flow Rate 2 04/18/24 02:10 04/18/24 02:20 04/18/24 02:20 Temperature Pulse Rate 105 H Respiratory Rate 29 H Blood Pressure 109/66 111/66 Pulse Oximetry 95 Oxygen Delivery Method Oxygen Flow Rate 04/18/24 02:30 04/18/24 02:30 04/18/24 02:35 Temperature Pulse Rate 103 H Respiratory Rate 31 H Blood Pressure 108/67 Pulse Oximetry 97 92 Oxygen Delivery Method Room Air Oxygen Flow Rate 04/18/24 02:40 04/18/24 02:40 04/18/24 02:50 Temperature Pulse Rate 104 H 106 H Respiratory Rate 18 Blood Pressure 113/69 Pulse Oximetry 94 94 Oxygen Delivery Method Oximask Oximask Oxygen Flow Rate 2 2 04/18/24 02:50 04/18/24 03:00 04/18/24 03:00 Temperature Pulse Rate 104 H Respiratory Rate 20 Blood Pressure 113/71 111/69 Pulse Oximetry 95 Oxygen Delivery Method Oximask Oxygen Flow Rate 2 04/18/24 04:00 04/18/24 06:35 Temperature 97.8 F Pulse Rate 109 H Respiratory Rate 20 Blood Pressure 105/67 Pulse Oximetry 92 96 Oxygen Delivery Method Nasal Cannula Oxygen Flow Rate 0 2.5 Oxygen Delivery Method Nasal Cannula Oxygen Flow Rate 2.5 Narrative Exam Narrative: NAD, Awake and calm. Cog impairment. Normocephalic skull, EOMI, anicteric sclera, symmetric pupils. Oropharynx unremarkable, no droop. Neck supple, midline trachea, no adenopathy. Lungs clear, normal rate and effort. Heart regular, no murmur gallop or rub. Abdomen is soft, non tender, and slightly distended. Extremities are free of edema. Skin is free of rash or lesions. Joints are not swollen or deformed. Judgment appears to be normal. Objective Labs 04/17/24 22:45 04/17/24 22:45 Labs: Laboratory Results - last 24 hr 04/17/24 04/17/24 04/18/24 22:45 23:20 00:37 WBC 17.7 H RBC 5.35 Hgb 15.8 Hct 47.3 MCV 88.4 MCH 29.5 MCHC 33.3 RDW 14.3 Plt Count 428 H Neut % (Auto) 93.4 H Lymph % (Auto) 2.6 L [place] % (Auto) 3.5 Eos % (Auto) 0.0 L Baso % (Auto) 0.5 Neut # (Auto) 79850 H Lymph # (Auto) 500 L [place] # (Auto) 600 Eos # (Auto) 0 Baso # (Auto) 100 Sodium 144 Potassium 5.2 H Chloride 105 Carbon Dioxide 21 L BUN 43 H Creatinine 2.89 H Estimated GFR 22 L BUN/Creatinine Ratio 14.9 Glucose 114 H Lactate 2.3 H Calcium 9.5 Total Bilirubin 0.7 AST 41 ALT 40 Alkaline Phosphatase 72 Ammonia < 9 L NT-Pro-B Natriuret Pep 4990 H Total Protein 9.2 H Albumin 4.4 Globulin 4.8 H Albumin/Globulin Ratio 0.9 L Urine Color Dark yellow Urine Appearance Clear Urine pH 5.0 Ur Specific [place] >=1.030 H Urine Protein 1+ H Urine Glucose (UA) Negative Urine Ketones 1+ H Urine Occult Blood 2+ H Urine Nitrate Negative Urine Bilirubin 1+ H Ur Bilirubin Confirm Negative Urine Urobilinogen 0.2 Ur Leukocyte Esterase Negative Urine RBC 10-30/hpf H Urine WBC 0-1/hpf Ur Squamous Epith Cells 0-1 /hpf Ur Transition Epith Cell 1-5/hpf Amorphous Sediment 2+ Urine Bacteria Many (>30) H Hyaline Casts 0-1/lpf Urine Mucus 2+ H Ur Culture Indicated? Cult not indicated Vol Urine Centrifuged 10ml (spun) U Opiates 300ng/mL cut Negative Ur Oxycodone Screen Negative Urine Methadone Screen Negative Ur Barbiturates Screen Negative U Tricyclic Antidepress Negative Ur Phencyclidine Scrn Negative Ur Amphetamines Screen Negative U Methamphetamines Scrn Negative Ur MDMA Scrn (Ecstasy) Negative U Benzodiazepines Scrn Negative Urine Cocaine Screen Negative U Marijuana (THC) Screen Negative Urine Specific [place] Ur Creatinine 04/18/24 04/18/24 00:37 01:38 WBC RBC Hgb Hct MCV MCH MCHC RDW Plt Count Neut % (Auto) Lymph % (Auto) [place] % (Auto) Eos % (Auto) Baso % (Auto) Neut # (Auto) Lymph # (Auto) [place] # (Auto) Eos # (Auto) Baso # (Auto) Sodium Potassium Chloride Carbon Dioxide BUN Creatinine Estimated GFR BUN/Creatinine Ratio Glucose Lactate 1.7 Calcium Total Bilirubin AST ALT Alkaline Phosphatase Ammonia NT-Pro-B Natriuret Pep Total Protein Albumin Globulin Albumin/Globulin Ratio Urine Color Urine Appearance Urine pH Normal Ur Specific [place] Urine Protein Urine Glucose (UA) Urine Ketones Urine Occult Blood Urine Nitrate Urine Bilirubin Ur Bilirubin Confirm Urine Urobilinogen Ur Leukocyte Esterase Urine RBC Urine WBC Ur Squamous Epith Cells Ur Transition Epith Cell Amorphous Sediment Urine Bacteria Hyaline Casts Urine Mucus Ur Culture Indicated? Vol Urine Centrifuged U Opiates 300ng/mL cut Ur Oxycodone Screen Urine Methadone Screen Ur Barbiturates Screen U Tricyclic Antidepress Ur Phencyclidine Scrn Ur Amphetamines Screen U Methamphetamines Scrn Ur MDMA Scrn (Ecstasy) U Benzodiazepines Scrn Urine Cocaine Screen U Marijuana (THC) Screen Urine Specific [place] Normal Ur Creatinine Normal Assessment & Plan Assessment & Plan narrative: 1. SBO, present on admission and active. - has transition point - prior Rt hemicolectomy, likely adhesions - NPO, IVFs, antiemetics - Sx consultation, Gastrografin challenge 2. PERI on CKD, present on admission and active. - b/l renal atrophy - his renal function deteriorated from stage 3 a year ago to likely stage 4 - acutely worsened in the absence of obstruction and in part likely due to ATN - empiric Rocephin - IVFs 3. Hyperkalemia, present on admission and active. 4. Acute Cystitis, present on admission and active. 5. Hx of prostatectomy for carcinoma followed by incontinence, active. 6. GERD, stable. - PPI IV 7. PAF / s/p TAVR / Renovascular HTN / Hx of Rt MCA CVA with chronic Lt Hemiparesis - obtain EKG - pending - Eliquis on hold - holding on anticoagulation this morning, consider Lovenox 1mg/kg if not going to OR 8. Depression / Hx of psychotic episodes / Alcohol use - restart Prozac and mirtazapine with resumed PO - prn Ativan PLAN: Continue IV fluids and antibiotics. Follow cultures. Monitor creatinine with IV fluids. Monitor potassium Telemetry DNR. Time-Based Coding :: [TOTAL MINUTES] spent with patient and on the chart (including review of chart, obtaining history, exam, reviewing outside data, placing orders, documenting exam and treatment plan, and counseling patient) on [DATE].
[2024-04-18] MEDS: ONDANSETRON 4 MG/2 ML INJ IV ×2 (08:25→16:41)
[2024-04-18] MEDS: PANTOPRAZOLE 40 MG VIAL IV (08:25)
[2024-04-18] MEDS: LORazepam 2 MG/ML INJ 0.5 MG IV ×5 (08:25→18:29)
[2024-04-18] MEDS: HYDROMORPHONE 0.5 MG INJ IV ×6 (08:25→18:30)
--- NOTE | 2024-04-18 10:35 | CM.DANOTE ---
Patient is a 78 yo male who was admitted INPT Status on 04/18/24 for AMS. Pt has [facility] and [facility] for insurance and his PCP is Marlon Fabian. EMR was reviewed. Per MD, pt with hx of CVA and prostate CA and admitted for encephalopathy, UTI, PERI, and possible SBO. Pt has NGT placed and to have IV fluids and IV Abx to see pt's improvements. ST ordered and pending. Per RN and HOB MACHINE OPERATOR, pt quite groggy and not very A&O at this time. SW called [facility] Julius and she confirms that pt is a resident at their facility and typically uses a w/c at baseline with a nolan lift for staff but is A&O x3 at baseline. Faxed H&P to Julius at [facility] to review and follow along to determine SNF vs return to [facility] pending progress. BRENDAN made new referral to [facility] to review in case SNF needed. Plan: SW to follow closely for pt progress to determine SNF vs [facility] and to contact Dtr or sister to confirm if pt has POA in place. GRACIE Duqeu Discharge Planning/Care Management CM Discharge Assessment Start: 04/18/24 10:30 Freq: Status: Active Protocol: Document 04/18/24 10:30 BF (Rec: 04/18/24 10:33 BF [id number]) Discharge Planning Assessment Assigned Back Shoe Operator GRACIE Elizondo DPOA/Assigned Designee Name Dtr and sister Contact Information [phone] Advance Directives? Yes Advance Directives on File No History Provided By Medical Record Has Patient been admitted in last 30 No days? Prior Living Arrangements Assisted Living Household Members none Type of transporation used prior to Relies on Others admit Facility Name Admitted From: [facility] Willing to Return to Facility? Yes Independent with ADL's No Is patient alert and oriented? Yes Needs Assistance With Bathing,Meal Prep,Managing Medications,Home Chores / Shopping Caregiver for Another No Comment Lives at [facility] and typically is w/c and Nolan lift at baseline DME Already Rented / Owned Wheelchair Comment nolan lift at [facility] as well Comment SNF vs return to [facility] pending progress Barriers to Discharge No Discharge Plan Assisted Living Facility Transportation Arrangement facility van at d/c Additional Comment Pending pt's progress, might need SNF vs return to [facility] RAJIV Whiteboard Updated in Patient Room with Yes name and ext. # of Back Shoe Operator Review Status In Process Please Provide Date Initial DC 04/18/24 Assessment Was Performed Next Review Type Continued Stay Review
--- NOTE | 2024-04-18 12:08 | SLP.IPNOTE ---
RN WOMEN SERVICES communicated with Dr. Batista prior to seeing patient. Due to Pt with SBO, nursing reporting Pt just took Gastrografin and after discussion with Dr. Batista Pt is not appropriate for PO trials at this time. RN WOMEN SERVICES to f/u tomorrow.
--- NOTE | 2024-04-18 13:53 | P.CONS_ITS ---
History of Present Illness Consult details Date Patient Seen: 04/18/24 Time Patient Seen: 13:53 Chief complaint: Altered mental status Reason for consult: Small bowel obstruction Requesting provider: Chinmay Batista Narrative: 78-year-old white male, on Eliquis, not able to provide much history but his fortunately accompanied by his family, has nasogastric tube in place and thinks he is passed some gas today. Gastrografin study has not shown the contrast passed the stomach yet any still has some dilated loops of small bowel. He states he was having some dramatic emesis before coming in, but none presently. Meds Home Medications and Allergies Home Medications Medication Instructions Recorded Confirmed Type multivitamin 1 tab PO DAILY ##0 11/08/12 02/12/22 History vitamin B complex (B 1 tab PO QDAY ##0 09/18/16 02/12/22 History Complex-Vitamin B12 tablet) biosooth PO DAILY 10/25/19 02/12/22 History ferrous sulfate 325 mg (65 mg 325 mg PO DAILY 10/25/19 02/12/22 History iron) tablet (FeroSul) triamcinolone acetonide 55 mcg 1 spray intranasal DAILY 11/18/19 02/12/22 History nasal spray aerosol fluoxetine 20 mg capsule (Prozac) 20 mg PO DAILY #90 caps 12/20/19 02/12/22 Rx apixaban 5 mg tablet (Eliquis) 5 mg PO BID 05/21/21 02/12/22 History atorvastatin 20 mg tablet (Lipitor) 40 mg PO HS #0 tabs 05/21/21 02/12/22 History mirtazapine 30 mg tablet 30 mg PO BEDTIME 05/21/21 02/12/22 History omega-3 fatty acids-fish oil 340 1 cap PO DAILY 05/21/21 02/12/22 History mg-1,000 mg capsule (Fish Oil) pantoprazole 40 mg tablet,delayed 40 mg PO DAILY 05/21/21 02/12/22 History release sennosides 8.6 mg capsule (senna) 8.6 mg PO DAILY 05/21/21 02/12/22 History alpha lipoic acid 200 mg capsule 200 mg PO DAILY 08/13/21 02/12/22 History metoprolol succinate 25 mg 25 mg PO DAILY #30 tabs 01/15/24 Rx tablet,extended release 24 hr Allergies Allergy/AdvReac Type Severity Reaction Status Date / Time No Known Drug Allergies Allergy Verified 02/12/22 09:56 fragrances Allergy Intermediate rash Uncoded 02/12/22 09:56 Review of Systems Review of Systems ROS: Yes All systems reviewed with the patient and are negative except as otherwise documented Exam Vital Signs (past 8 hours): - 04/18/24 06:35 04/18/24 07:35 04/18/24 08:00 Temperature 97.5 F L Pulse Rate 102 H Respiratory Rate 22 Blood Pressure 130/78 Pulse Oximetry 96 96 Oxygen Delivery Method Nasal Cannula Nasal Cannula Oxygen Flow Rate 2.5 2.5 04/18/24 10:30 04/18/24 12:00 Temperature 97.4 F L Pulse Rate 94 H Respiratory Rate 93 H Blood Pressure 129/75 Pulse Oximetry 95 93 Oxygen Delivery Method Nasal Cannula Oxygen Flow Rate 2.5 2.5 Oxygen Delivery Method Nasal Cannula Oxygen Flow Rate 2.5 Objective Labs 04/17/24 22:45 04/17/24 22:45 Labs: Laboratory Results - last 24 hr 04/17/24 04/17/24 04/18/24 22:45 23:20 00:37 WBC 17.7 H RBC 5.35 Hgb 15.8 Hct 47.3 MCV 88.4 MCH 29.5 MCHC 33.3 RDW 14.3 Plt Count 428 H Neut % (Auto) 93.4 H Lymph % (Auto) 2.6 L [place] % (Auto) 3.5 Eos % (Auto) 0.0 L Baso % (Auto) 0.5 Neut # (Auto) 96355 H Lymph # (Auto) 500 L [place] # (Auto) 600 Eos # (Auto) 0 Baso # (Auto) 100 Sodium 144 Potassium 5.2 H Chloride 105 Carbon Dioxide 21 L BUN 43 H Creatinine 2.89 H Estimated GFR 22 L BUN/Creatinine Ratio 14.9 Glucose 114 H Lactate 2.3 H Calcium 9.5 Total Bilirubin 0.7 AST 41 ALT 40 Alkaline Phosphatase 72 Ammonia < 9 L NT-Pro-B Natriuret Pep 4990 H Total Protein 9.2 H Albumin 4.4 Globulin 4.8 H Albumin/Globulin Ratio 0.9 L Urine Color Dark yellow Urine Appearance Clear Urine pH 5.0 Ur Specific [place] >=1.030 H Urine Protein 1+ H Urine Glucose (UA) Negative Urine Ketones 1+ H Urine Occult Blood 2+ H Urine Nitrate Negative Urine Bilirubin 1+ H Ur Bilirubin Confirm Negative Urine Urobilinogen 0.2 Ur Leukocyte Esterase Negative Urine RBC 10-30/hpf H Urine WBC 0-1/hpf Ur Squamous Epith Cells 0-1 /hpf Ur Transition Epith Cell 1-5/hpf Amorphous Sediment 2+ Urine Bacteria Many (>30) H Hyaline Casts 0-1/lpf Urine Mucus 2+ H Ur Culture Indicated? Cult not indicated Vol Urine Centrifuged 10ml (spun) U Opiates 300ng/mL cut Negative Ur Oxycodone Screen Negative Urine Methadone Screen Negative Ur Barbiturates Screen Negative U Tricyclic Antidepress Negative Ur Phencyclidine Scrn Negative Ur Amphetamines Screen Negative U Methamphetamines Scrn Negative Ur MDMA Scrn (Ecstasy) Negative U Benzodiazepines Scrn Negative Urine Cocaine Screen Negative U Marijuana (THC) Screen Negative Urine Specific [place] Ur Creatinine 04/18/24 04/18/24 00:37 01:38 WBC RBC Hgb Hct MCV MCH MCHC RDW Plt Count Neut % (Auto) Lymph % (Auto) [place] % (Auto) Eos % (Auto) Baso % (Auto) Neut # (Auto) Lymph # (Auto) [place] # (Auto) Eos # (Auto) Baso # (Auto) Sodium Potassium Chloride Carbon Dioxide BUN Creatinine Estimated GFR BUN/Creatinine Ratio Glucose Lactate 1.7 Calcium Total Bilirubin AST ALT Alkaline Phosphatase Ammonia NT-Pro-B Natriuret Pep Total Protein Albumin Globulin Albumin/Globulin Ratio Urine Color Urine Appearance Urine pH Normal Ur Specific [place] Urine Protein Urine Glucose (UA) Urine Ketones Urine Occult Blood Urine Nitrate Urine Bilirubin Ur Bilirubin Confirm Urine Urobilinogen Ur Leukocyte Esterase Urine RBC Urine WBC Ur Squamous Epith Cells Ur Transition Epith Cell Amorphous Sediment Urine Bacteria Hyaline Casts Urine Mucus Ur Culture Indicated? Vol Urine Centrifuged U Opiates 300ng/mL cut Ur Oxycodone Screen Urine Methadone Screen Ur Barbiturates Screen U Tricyclic Antidepress Ur Phencyclidine Scrn Ur Amphetamines Screen U Methamphetamines Scrn Ur MDMA Scrn (Ecstasy) U Benzodiazepines Scrn Urine Cocaine Screen U Marijuana (THC) Screen Urine Specific [place] Normal Ur Creatinine Normal [facility] Medical History Hemiparesis affecting left side as late effect of cerebrovascular accident History of malignant neoplasm of prostate Prostate cancer Urinary incontinence, mixed Lower urinary tract symptoms (LUTS) Urinary incontinence without sensory awareness Family history of prostate cancer Prostate cancer CVA (cerebral vascular accident) Elevated PSA Male erectile disorder Prostate cancer Alcohol dependence Major depressive disorder, single episode, severe without psychotic features Hypercholesterolemia Hypertension Chronic low back pain Surgical History H/O aortic valve replacement Total knee replacement status H/O prostate biopsy H/O colectomy History of prostatectomy History of bilateral knee replacement Family History Father Cancer Alcohol abuse Social History marital status: details: 7 yrs ago number of children: 3 household members: none lives independently: Yes caregiver/support person: No housing: condominium pets and animals: No education level: high school occupational status: other current occupational exposures/hazards: No Tobacco & Substance Use Smoking Status: Current some day smoker alcohol intake: current substance use type: marijuana Diet and Exercise during the past year weight has: remained stable well-balanced diet: daily or most days Type(s) of exercise: aerobic Additional Social History additional social history: Born and raised in [facility]. Grew up in an intact family. High school Education. 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 Assessment & Plan Assessment and plan (1) Partial obstruction of small intestine: Status: Acute Assessment & Plan narrative: Partial small bowel obstruction, question of urinary tract infection. Patient thinks he is passing flatus. Repeat imaging to see if contrast advances. Continue nasogastric tube. Time-Based Coding :: [TOTAL MINUTES] spent with patient and on the chart (including review of chart, obtaining history, exam, reviewing outside data, placing orders, documenting exam and treatment plan, and counseling patient) on [DATE]. PROFEE Charge Codes Inpatient or Observation consultation: [id number]
[2024-04-18] MEDS: DEXTROSE 5%-0.9% NS 1,000 ML 150 ML IV (22:30)
[2024-04-19] VITALS (11 sets, daily range): BP systolic 126–165; BP diastolic 68–89; PULSE 63–80; RESP 16–20; TEMP 36.1–36.4; O2SAT 92–99
[2024-04-19 01:23] LABS: Acinetobacter calcoa-baumannii Not Detected (Not Detect); Bacteroides fragilis Not Detected (Not Detect); Candida albicans Not Detected (Not Detect); Candida auris Not Detected (Not Detect); Candida glabrata Not Detected (Not Detect); Candida krusei Not Detected (Not Detect); Candida parapsilosis Not Detected (Not Detect); Candida tropicalis Not Detected (Not Detect); Cryptococcus neoformans/gatti Not Detected (Not Detect); Enterobacter cloacae complex Not Detected (Not Detect); Enterobacterales Not Detected (Not Detect); Enterococcus faecalis Not Detected (Not Detect); Enterococcus faecium Not Detected (Not Detect); Haemophilus influenzae Not Detected (Not Detect); Klebsiella aerogenes Not Detected (Not Detect); Listeria monocytogenes Not Detected (Not Detect); Neisseria meningitidis Not Detected (Not Detect); Proteus species Not Detected (Not Detect); Pseudomonas aeruginosa Not Detected (Not Detect); Salmonella species Not Detected (Not Detect); Serratia marcescens Not Detected (Not Detect); Staphylococcus epidermidis Not Detected (Not Detect); Staphylococcus lugdunensis Not Detected (Not Detect); Staphylococcus species Not Detected (Not Detect); Stenotrophomonas maltophilia Not Detected (Not Detect); Streptococcus agalactiae (Gr B Not Detected (Not Detect); Streptococcus pneumonia Not Detected (Not Detect); Streptococcus pyogenes (Gr A) Not Detected (Not Detect); Streptococcus species Not Detected (Not Detect)
--- NOTE | 2024-04-19 02:52 | PC.NURSE ---
notified MD Wheeler of 9-beat run of [facility]. patient denies pain, states i feel fine. VSS. No new orders at this time.
[2024-04-19] MEDS: cefTRIAXone 1,000 MG in SODIUM CHLORIDE 0.9% 100 ML 200 MG IV (04:56)
[2024-04-19] MEDS: DEXTROSE 5%-0.9% NS 1,000 ML 150 ML IV (05:00)
[2024-04-19] MEDS: LORazepam 2 MG/ML INJ 0.5 MG IV ×3 (05:37→23:50)
[2024-04-19 05:50] LABS: BUN Creatinine Ratio 18.3 (6-22); Blood Urea Nitrogen 53 mg/dL (9-20); Calcium 8.3 mg/dL (8.4-10.2); Carbon Dioxide 15 mmol/L (22-32); Chloride 116 mmol/L (98-107); Estimated Glomerular Filt Rate 22 mL/min (>60); Glucose 100 mg/dL (80-110); Potassium 5.3 mmol/L (3.4-5.1); Sodium 144 mmol/L (137-145)
--- NOTE | 2024-04-19 06:00 | DI.RAD.S_ITS ---
PROCEDURE: XR ABDOMEN MIN 2V INDICATIONS: SBO, follow contrast TECHNIQUE: 2 views of the abdomen were acquired. COMPARISON: None. FINDINGS: Stool gas pattern: Normal-no evidence of ileus or obstruction. There is moderate residual enteric contrast within the colon. No free intraperitoneal or extraperitoneal air. No gross evidence of ascites Soft tissues: No abnormal calcifications. No soft tissue masses. Organs: No gross evidence for organomegaly. IMPRESSION: Normal abdomen Dictated by: Livan Amado M.D. on 04/19/2024 at 10:54 Approved by: Livan Amado M.D. on 04/19/2024 at 10:55
[2024-04-19 06:18] LABS: HEMOLYSIS 168 (0-50); NT-proBNP (BNP-Adult 18+) 1420 pg/mL (<450)
--- NOTE | 2024-04-19 06:18 | PC.NURSE ---
Patient pulled out NGT. 500cc light green fluid in cannister. Patient states I dont want this in my nose anymore. Oriented patient to situation, patient agreeable to reinsertion of NGT. Attempted x2 to reinsert NGT per MD order. Patient unable to follow instructions and resisting insertion. Notified MD Rubio, OK to leave out for now. Abdominal xray ordered for 0600.
[2024-04-19 07:31] LABS: Add Manual Diff / Slide Review NO; Basophils Absolute Auto 100 /uL (0-100); Basophils Percent Auto 0.6 % (0-2); Eosinophils Absolute Auto 200 /uL (0-450); Hematocrit 38.2 % (41-53); Hemoglobin 12.6 g/dL (13.5-17.5); Lymphocytes Absolute Auto 1400 /uL (1100-4500); Lymphocytes Percent Auto 13.7 % (25-40); Mean Corpuscular HGB Conc 32.9 % (30-36); Mean Corpuscular Hemoglobin 29.2 PG (26-34); Mean Corpuscular Volume 88.8 fL (80-100); Monocytes Absolute Auto 1000 /uL (0-900); Monocytes Percent Auto 9.7 % (3-14); Neutrophils Absolute Auto 7400 /uL (1500-7000); Platelet Count 294 X10^3/uL (150-400); Red Cell Distribution Width 14.7 % (11.6-14.8)
[2024-04-19] MEDS: PANTOPRAZOLE 40 MG VIAL IV (09:11)
--- NOTE | 2024-04-19 09:16 | P.PN_ITS ---
Subjective Subjective Interval history: Summary: The patient was admitted for volume depletion, AKA, and urinary tract infection with a concern for bowel obstruction on initial imaging. 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 He was much more alert today. A Gastrografin challenge with a KUB this morning reveals good through put and he was having bowel movements. Urine and blood cultures are positive for Gram-positive bacillus. Subjective: No pain, or dyspnea other than some mild pain in the middle of his lower abdomen. Exam Vital Signs (past 8 hours): - 04/19/24 02:00 04/19/24 04:00 04/19/24 06:00 Temperature 97.1 F L Pulse Rate 69 Respiratory Rate 16 Blood Pressure 126/76 Pulse Oximetry 92 95 96 Oxygen Delivery Method Nasal Cannula Nasal Cannula Oxygen Flow Rate 2 2.5 2 04/19/24 07:15 04/19/24 08:00 Temperature 96.9 F L Pulse Rate 68 Respiratory Rate 16 Blood Pressure 141/71 H Pulse Oximetry 95 96 Oxygen Delivery Method Nasal Cannula Oxygen Flow Rate 2 1 Fraction of Inspired Oxygen 30 SaO2/FiO2 Ratio 313 Oxygen Delivery Method Nasal Cannula Oxygen Flow Rate 1 Objective Labs 04/19/24 07:13 04/19/24 05:20 Labs: Laboratory Results - last 24 hr 04/19/24 04/19/24 04/19/24 05:20 07:13 23:29 WBC 10.0 RBC 4.30 L Hgb 12.6 L Hct 38.2 L MCV 88.8 MCH 29.2 MCHC 32.9 RDW 14.7 Plt Count 294 Neut % (Auto) 74.0 Lymph % (Auto) 13.7 L [place] % (Auto) 9.7 Eos % (Auto) 2.0 Baso % (Auto) 0.6 Neut # (Auto) 7400 H Lymph # (Auto) 1400 [place] # (Auto) 1000 H Eos # (Auto) 200 Baso # (Auto) 100 Sodium 144 Potassium 5.3 H Chloride 116 H Carbon Dioxide 15 L BUN 53 H Creatinine 2.90 H Estimated GFR 22 L BUN/Creatinine Ratio 18.3 Glucose 100 Calcium 8.3 L NT-Pro-B Natriuret Pep 1420 H A.calcoaceticus-baumannii cmplx PCR Not detected Bacteroides fragilis Not detected Michelle albicans (PCR) Not detected Michelle auris (PCR) Not detected C. glabrata (PCR) Not detected C. krusei (PCR) Not detected C. parapsilosis (PCR) Not detected C. tropicalis (PCR) Not detected C. neoform/gattii (PCR) Not detected Enterobacterales (PCR) Not detected E. cloacae complex PCR Not detected Enterococc faecalis PCR Not detected Enterococc faecium PCR Not detected E. coli (PCR) Not detected H. influenzae (PCR) Not detected Klebsiella aerogenes (PCR) Not detected Klebsiella oxytoca PCR Not detected Klebsiella pneumoniae Not detected List. monocytogenes PCR Not detected N. meningitidis (PCR) Not detected Proteus species (PCR) Not detected Salmonella spp. (PCR) Not detected Serratia marcescens PCR Not detected Staphylococcus sp PCR Not detected Staph aureus (PCR) Not detected mecA/C & MREJ Resist Gene Not applicable mecA/C-Methicil Resis Gene Not applicable mcr-1 Colistin Res Gene PCR Not applicable Staph epidermidis (PCR) Not detected Staph lugdunensis PCR Not detected S. maltophilia (PCR) Not detected Streptococcus sp PCR Not detected Group A Strep (PCR) Not detected Strep agalactiae (PCR) Not detected Strep pneumoniae (PCR) Not detected P. aeruginosa (PCR) Not detected Neo/B-Vanco Res Genes Not applicable blaIMP Car res Gene PCR Not applicable KPC-Carbap Res Gene PCR Not applicable blaNDM Car Res Gene PCR Not applicable OXA-48 Carbapenem Resis Gene (PCR) Not applicable blaVIM Car Res Gene PCR Not applicable CTX-M Gene Resistance (PCR) Not applicable PFSH Medical History Hemiparesis affecting left side as late effect of cerebrovascular accident History of malignant neoplasm of prostate Prostate cancer Urinary incontinence, mixed Lower urinary tract symptoms (LUTS) Urinary incontinence without sensory awareness Family history of prostate cancer Prostate cancer CVA (cerebral vascular accident) Elevated PSA Male erectile disorder Prostate cancer Alcohol dependence Major depressive disorder, single episode, severe without psychotic features Hypercholesterolemia Hypertension Chronic low back pain Surgical History H/O aortic valve replacement Total knee replacement status H/O prostate biopsy H/O colectomy History of prostatectomy History of bilateral knee replacement Family History Father Cancer Alcohol abuse Social History marital status: details: 7 yrs ago number of children: 3 household members: none lives independently: Yes caregiver/support person: No housing: condominium pets and animals: No education level: high school occupational status: other current occupational exposures/hazards: No Smoking Status: Current some day smoker alcohol intake: current substance use type: marijuana during the past year weight has: remained stable well-balanced diet: daily or most days Type(s) of exercise: aerobic additional social history: Born and raised in [facility]. Grew up in an intact family. High school Education. 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 Assessment & Plan Assessment & Plan narrative: 1. Ileus, resolved. 2. PERI on CKD, present on admission and active. - b/l renal atrophy - his renal function deteriorated from stage 3 a year ago to likely stage 4 - acutely worsened in the absence of obstruction and in part likely due to ATN -volume depletion and a probable component of prerenal versus ATN. 3. Gram negative bacillus bacteremia, present on admission and active. 4. Hyperkalemia, present on admission and improved. 5. Acute Cystitis, present on admission and active. 6. Septic encephalopathy, present on admission and improved. 7. Hx of prostatectomy for carcinoma followed by incontinence, active. 8. GERD, stable. 9. 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 Depression / Hx of psychotic episodes / Alcohol use PLAN: Continue IV fluids and antibiotics. Follow cultures. Monitor creatinine with IV fluids. Monitor potassium No SBO, we will resume Eliquis. Anticipate at least 2 more midnights of hospital care being needed. HIGINIO is April 21. Time-Based Coding :: [TOTAL MINUTES] spent with patient and on the chart (including review of chart, obtaining history, exam, reviewing outside data, placing orders, documenting exam and treatment plan, and counseling patient) on [DATE].
[2024-04-19] MEDS: ACETAMINOPHEN 325 MG TABLET 650 MG PO (10:49)
[2024-04-19] MEDS: APIXABAN 5 MG TABLET PO ×2 (10:49→20:30)
--- NOTE | 2024-04-19 12:17 | P.PN_ITS ---
Subjective Subjective Date Patient Seen: 04/19/24 Time Patient Seen: 12:17 Interval history: Patient has an appetite and is working with speech therapy to eat. He has had bowel movements. Contrast has made it through the colon on today's imaging. No more nausea or vomiting. Nasogastric tube is out. Exam Vital Signs (past 8 hours): - 04/19/24 06:00 04/19/24 07:15 04/19/24 08:00 Temperature 96.9 F L Pulse Rate 68 Respiratory Rate 16 Blood Pressure 141/71 H Pulse Oximetry 96 95 96 Oxygen Delivery Method Nasal Cannula Nasal Cannula Oxygen Flow Rate 2 2 1 Fraction of Inspired Oxygen 30 SaO2/FiO2 Ratio 313 Oxygen Delivery Method Nasal Cannula Oxygen Flow Rate 1 Narrative Exam Narrative: Gen: NAD, sitting comfortably in bed, appears well HEENT: Sclera are anicteric, head is normocephalic and atraumatic, trachea is midline. CV: RRR, no JVD Resp: clear to auscultation bilaterally, equal chest wall movement bilaterally Abd: soft, nontender, normoactive bowel sounds Ext: no edema, full range of motion Neuro: Cranial nerves II-XII grossly intact, no focal deficits. Seems to be at his baseline neurologically per daughter Skin: No erythema or ecchymosis Objective Labs 04/19/24 07:13 04/19/24 05:20 Labs: Laboratory Results - last 24 hr 04/19/24 04/19/24 04/19/24 05:20 07:13 23:29 WBC 10.0 RBC 4.30 L Hgb 12.6 L Hct 38.2 L MCV 88.8 MCH 29.2 MCHC 32.9 RDW 14.7 Plt Count 294 Neut % (Auto) 74.0 Lymph % (Auto) 13.7 L [place] % (Auto) 9.7 Eos % (Auto) 2.0 Baso % (Auto) 0.6 Neut # (Auto) 7400 H Lymph # (Auto) 1400 [place] # (Auto) 1000 H Eos # (Auto) 200 Baso # (Auto) 100 Sodium 144 Potassium 5.3 H Chloride 116 H Carbon Dioxide 15 L BUN 53 H Creatinine 2.90 H Estimated GFR 22 L BUN/Creatinine Ratio 18.3 Glucose 100 Calcium 8.3 L NT-Pro-B Natriuret Pep 1420 H A.calcoaceticus-baumannii cmplx PCR Not detected Bacteroides fragilis Not detected Michelle albicans (PCR) Not detected Michelle auris (PCR) Not detected C. glabrata (PCR) Not detected C. krusei (PCR) Not detected C. parapsilosis (PCR) Not detected C. tropicalis (PCR) Not detected C. neoform/gattii (PCR) Not detected Enterobacterales (PCR) Not detected E. cloacae complex PCR Not detected Enterococc faecalis PCR Not detected Enterococc faecium PCR Not detected E. coli (PCR) Not detected H. influenzae (PCR) Not detected Klebsiella aerogenes (PCR) Not detected Klebsiella oxytoca PCR Not detected Klebsiella pneumoniae Not detected List. monocytogenes PCR Not detected N. meningitidis (PCR) Not detected Proteus species (PCR) Not detected Salmonella spp. (PCR) Not detected Serratia marcescens PCR Not detected Staphylococcus sp PCR Not detected Staph aureus (PCR) Not detected mecA/C & MREJ Resist Gene Not applicable mecA/C-Methicil Resis Gene Not applicable mcr-1 Colistin Res Gene PCR Not applicable Staph epidermidis (PCR) Not detected Staph lugdunensis PCR Not detected S. maltophilia (PCR) Not detected Streptococcus sp PCR Not detected Group A Strep (PCR) Not detected Strep agalactiae (PCR) Not detected Strep pneumoniae (PCR) Not detected P. aeruginosa (PCR) Not detected Neo/B-Vanco Res Genes Not applicable blaIMP Car res Gene PCR Not applicable KPC-Carbap Res Gene PCR Not applicable blaNDM Car Res Gene PCR Not applicable OXA-48 Carbapenem Resis Gene (PCR) Not applicable blaVIM Car Res Gene PCR Not applicable CTX-M Gene Resistance (PCR) Not applicable PFS Medical History Hemiparesis affecting left side as late effect of cerebrovascular accident History of malignant neoplasm of prostate Prostate cancer Urinary incontinence, mixed Lower urinary tract symptoms (LUTS) Urinary incontinence without sensory awareness Family history of prostate cancer Prostate cancer CVA (cerebral vascular accident) Elevated PSA Male erectile disorder Prostate cancer Alcohol dependence Major depressive disorder, single episode, severe without psychotic features Hypercholesterolemia Hypertension Chronic low back pain Surgical History H/O aortic valve replacement Total knee replacement status H/O prostate biopsy H/O colectomy History of prostatectomy History of bilateral knee replacement Family History Father Cancer Alcohol abuse Social History marital status: details: 7 yrs ago number of children: 3 household members: none lives independently: Yes caregiver/support person: No housing: condominium pets and animals: No education level: high school occupational status: other current occupational exposures/hazards: No Smoking Status: Current some day smoker alcohol intake: current substance use type: marijuana during the past year weight has: remained stable well-balanced diet: daily or most days Type(s) of exercise: aerobic additional social history: Born and raised in [facility]. Grew up in an intact family. High school Education. 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 Assessment & Plan Assessment and plan (1) Partial obstruction of small intestine: Status: Acute Assessment & Plan narrative: Partial small bowel obstruction resolving, question of urinary tract infection. Patient is passing flatus and stool. Diet as tolerated. Time-Based Coding :: [TOTAL MINUTES] spent with patient and on the chart (including review of chart, obtaining history, exam, reviewing outside data, placing orders, documenting exam and treatment plan, and counseling patient) on [DATE]. PROFEE Forest Ecologist Document charge(s): Yes Charge Codes Subsequent inpatient/observation care: [id number]
--- NOTE | 2024-04-19 12:22 | ST.IPCSEOM ---
Visit Care Team Role Provider Type Marlon Fabian MD Primary Care Provider Non-Staff Specialty: Medical Address: [address] [place] [address], [id number] Email: Rajinder Rubio MD Other Providers Physician Specialty: General Surgery Address: [address] [place] [address], [address] [place] [address], [id number] Fax: Email: [email or web address] Seth Farooq MD Emergency Provider Physician Referring Provider Specialty: Emergency Medicine Address: [address] [place] [address], [id number] Fax: Email: [email or web address] Stevie Killian MD Admit Provider Physician Attending Provider Specialty: Internal Medicine Address: [address] [place] [address], [id number] Email: [email or web address] [email or web address] Alcohol dependence, uncomplicated (04/18/24) Other chronic pain (04/18/24) Metabolic encephalopathy (04/18/24) Essential (primary) hypertension (04/18/24) Hemiplegia and hemiparesis following cerebral infarction affecting left non-dominant side (04/18/24) Partial intestinal obstruction, unspecified as to cause (04/18/24) Low back pain (04/18/24) Acute kidney failure, unspecified (04/18/24) Atrophy of kidney (terminal) (04/18/24) Urinary tract infection, site not specified (04/18/24) Mixed incontinence (04/18/24) Past Medical History (Last Reviewed 04/19/24 @ 09:17 by Chinmay Batista MD) Alcohol dependence (Medical) Chronic low back pain (Medical) CVA (cerebral vascular accident) (Medical) Incomplete hemiparesis Elevated PSA (Medical) Family history of prostate cancer (Medical) Hemiparesis affecting left side as late effect of cerebrovascular accident (Medical) History of malignant neoplasm of prostate (Medical) Hypercholesterolemia (Medical) Hypertension (Medical) Lower urinary tract symptoms (LUTS) (Medical) Major depressive disorder, single episode, severe without psychotic features (Medical) Male erectile disorder (Medical) Prostate cancer (Medical) Prostate cancer (Medical) Prostate cancer (Medical) Urinary incontinence without sensory awareness (Medical) Urinary incontinence, mixed (Medical) 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 Farooq Reason for Referral SBO Setting Assessment Location Acute Care Visit Type Note Type Initial evaluation Patient Information Identification Type Name,Wristband History Per H&P: 78 y/o resident of [facility] with PMH of depression with psychotic features, alcoholism, Rt MCA CVA with residual Lt hemiparesis, prostatectomy for carcinoma followed by incontinence, TAVR, CKD stage 4, HTN, chronic LBP who presented with altered mental status. Workup showing acute on chronic renal failure, UTI and SBO. He does have a history of partial Rt hemicolectomy. CT - Borderline dilated small bowel loops up to 2.5 cm in the central-lower abdomen with a gradual transition point in the mid abdomen He is unable to provide any meaningful history, likely due to acute encephalopathy. Upon admission he had explosive vomiting and had NGT placed for low intermittent suction. Discussed with surgeon, Dr Rubio who will consult and possibly attempt Gastrografin small-bowel follow-through. S: The patient is awake and calm. He was cognitive impairment. His sister is here, he identifies her as his mother. He denies any pain. PMHx: Hemiparesis affecting left side as late effect of cerebrovascular accident History of malignant neoplasm of prostate Prostate cancer Urinary incontinence, mixed Lower urinary tract symptoms ( LUTS) Urinary incontinence without sensory awareness Family history of prostate cancer Prostate cancer CVA (cerebral vascular accident) Elevated PSA Male erectile disorder Prostate cancer Alcohol dependence Major depressive disorder, single episode, severe without psychotic features Hypercholesterolemia Hypertension Chronic low back pain Pt referred for ST evaluation to assess swallow function d/t Pt with NG tube placed secondary to SBO and Pt NPO. Subjective Observations Pt daughter present in room during evaluation. Pt unable to provide history d/t cognitive impairment, however daughter was able to answer questions. She reports he consumes regular solids and thin liquids at his [facility], however it takes him a lot time to eat d/t him forgetting what he is doing and requiring cues to put utensil to his mouth, as well as prolonged chewing. She also reports he occasionally pockets his food. Pt was most recently put on a clear liquid diet, however Dr. Batista cleared for PO trials for evaluation. Reported by Patient/Caregiver Pain/Discomfort No Current Diet NPO Baseline Feeding Method Needs some assistance The IDDSI Framework Protocol: IDDSI.1 Objective Assessment Mental Status Alert,Responsive,Cooperative, Confused Comment ST unable to complete formal oral motor exam d/t cognitive deficits, however ST suspects generalized weakness and reduced ROM for oral musculature. Pt with natural dentition, fair condition. Food and Liquid Trials Position During Assessment Upright (90 degrees) Liquids Trialed Thin (IDDSI 0) Solid Trials Purred (IDDSI 4),Soft & Bite- sized (IDDSI 6),Regular (IDDSI 7) Administration Type Straw,Self-feeding,Needs some assistance Oral Impairment Moderately impaired Oral Phase Comments Pt consumed 1/4 peanut butter and jelly sandwich, 1/2 josé miguel cracker and about 2 oz of pudding with 6 oz of thin water via straw. Pt able to feed self with assistance and required cues to put spoon up to mouth. For sandwich, Pt exhibited adequate bite size, prolonged mastication (~5 minutes per bite) and mild pocketing and residue, prolonged ap transport. For josé miguel cracker, Pt also exhibited prolonged mastication and extended ap transport, however adequate bolus formation and control. For pudding, Pt demonstrated adequate bite size and rate, timely bolus manipulation and transport. For thin water via straw Pt exhibited adequate suction and good oral acceptance and containment. Pharyngeal Impairment Within functional limits Pharyngeal Phase Comments Pt demonstrated no overt s/s of aspiration with all PO trials, such as coughing or choking with clear vocal quality. He benefited from alternating liquids/solids to assist with clearance. Fatigue/Endurance Endurance WNL The IDDSI Framework Protocol: IDDSI.1 Findings Swallowing Function Oral phase dysphagia Severity of Swallow Impairment Moderately impaired Contributing Factors to Swallow Mastication inefficiency Impairment Prognosis Good Based on Cognitive status Impact on Safety and Functioning No limitations Recommendations Instrumental Assessment No Swallowing Treatment Yes Frequency 1x follow up for potential diet upgrade Recommended Solids Minced & Moist (IDDSI 5) Recommended Liquids Thin (IDDSI 0) Other Recommendations ST recommends IDDSI 5 (minced and moist) with IDDSI 0 (thin liquids) with the below mentioned safe swallowing strategies in place. ST also recommends supervision during meals to cue Pt to eat and assist with set up and Pt holding utensils/cups. Safety Precautions/Swallowing Supervision needed for all Recommendations meals,Reduce distractions, Remain upright (90 degrees) during all oral intake,Upright position at least 30 minutes after meals,Small bites and sips when eating,Slow rate; swallow between bites, Alternate liquids and solids, Set-up assistance,Check for pocketing Medication Recommendations As Tolerated Education Patient/Caregiver Education Described results of evaluation,Family/caregivers expressed understanding of evaluation Goals Short-term Goals LTG 1: Patient will consume safest and most efficient least restrictive diet with no clinical s/s of aspiration or dysphagia 100% of the time in order to meet primary nutrition/hydration needs. STG 1: Pt will tolerate prescribed diet with <5% overt s/s of aspiration/dysphagia with use of compensatory swallowing strategies and minimal cues. Long-term Goals LTG 1: Patient will consume safest and most efficient least restrictive diet with no clinical s/s of aspiration or dysphagia 100% of the time in order to meet primary nutrition/hydration needs.
[2024-04-19] MEDS: SODIUM CHLORIDE 0.9% 1,000 ML 100 ML IV (12:23)
--- NOTE | 2024-04-19 14:12 | CM.DPC ---
DCP Cont: Per MD, pt accidentally pulled out his NGT and unable to reinsert after several attempts but per Surgeon pt making progress and can leave out NGT for now. Pt likely may be stable for d/c in 1-[address] ordered and pending. BRENDAN called Julius at [facility] and updated on above and she confirms no need for PT/OT eval prior to return as she states pt did not do well with PT there in house recently and they can accept him back as long as no IVs needed. Julius does not need clinicals faxed today but requests call to update tomorrow if pt ready for d/c yet. Plan: BRENDAN to follow for plan of return to [facility] when stable for discharge and to keep Julius at [facility] updated and fax discharge pwk at d/c. GRACIE Duque
[2024-04-19] MEDS: HYDROMORPHONE 0.5 MG INJ IV (20:30)
[2024-04-20] VITALS (8 sets, daily range): BP systolic 150–174; BP diastolic 69–91; PULSE 60–83; RESP 16–19; TEMP 36.1–36.6; O2SAT 92–98
[2024-04-20] MEDS: cefTRIAXone 1,000 MG in SODIUM CHLORIDE 0.9% 100 ML 200 MG IV (05:05)
[2024-04-20] MEDS: ACETAMINOPHEN 325 MG TABLET 650 MG PO (09:29)
[2024-04-20] MEDS: METOPROLOL ER 25 MG TABLET PO (09:39)
[2024-04-20] MEDS: THIAMINE 100 MG TABLET PO (09:40)
[2024-04-20] MEDS: FLUoxetine 20 MG CAPSULE PO (09:40)
[2024-04-20] MEDS: PANTOPRAZOLE DR 40 MG TABLET PO (09:41)
[2024-04-20] MEDS: APIXABAN 5 MG TABLET PO ×2 (09:41→21:01)
[2024-04-20 09:48] LABS: Add Manual Diff / Slide Review NO; Basophils Absolute Auto 0 /uL (0-100); Basophils Percent Auto 0.5 % (0-2); Eosinophils Absolute Auto 500 /uL (0-450); Eosinophils Percent Auto 6.1 % (2-4); Hematocrit 36.9 % (41-53); Hemoglobin 12.1 g/dL (13.5-17.5); Lymphocytes Absolute Auto 1600 /uL (1100-4500); Lymphocytes Percent Auto 19.7 % (25-40); Mean Corpuscular HGB Conc 32.8 % (30-36); Mean Corpuscular Hemoglobin 29.2 PG (26-34); Mean Corpuscular Volume 89.1 fL (80-100); Monocytes Absolute Auto 600 /uL (0-900); Neutrophils Absolute Auto 5200 /uL (1500-7000); Neutrophils Percent Auto 65.7 % (50-75); Platelet Count 276 X10^3/uL (150-400); Red Blood Cell Count 4.14 X10^6/uL (4.5-5.9); Red Cell Distribution Width 14.9 % (11.6-14.8); White Blood Cell Count 7.9 X10^3/uL (4.5-11.0)
[2024-04-20 09:56] LABS: BUN Creatinine Ratio 16.7 (6-22); Blood Urea Nitrogen 33 mg/dL (9-20); Calcium 8.6 mg/dL (8.4-10.2); Carbon Dioxide 20 mmol/L (22-32); Chloride 115 mmol/L (98-107); Estimated Glomerular Filt Rate 34 mL/min (>60); Glucose 76 mg/dL (80-110); HEMOLYSIS 18 (0-50); Magnesium 1.5 mg/dL (1.6-2.3); Potassium 4.4 mmol/L (3.4-5.1); Sodium 143 mmol/L (137-145)
[2024-04-20] MEDS: MAGNESIUM OXIDE 400 MG TABLET PO ×2 (10:51→21:01)
--- NOTE | 2024-04-20 10:53 | ST.IPDYTX ---
Visit Care Team Role Provider Type Marlon Fabian MD Primary Care Provider Non-Staff Specialty: Medical Address: [address] [place] [address], [id number] Email: Rajinder Rubio MD Other Providers Physician Specialty: General Surgery Address: [address] [place] [address]., [address] [place] [address], [id number] Fax: Email: [email or web address] Seth Farooq MD Emergency Provider Physician Referring Provider Specialty: Emergency Medicine Address: [address] [place] [address], [id number] Fax: Email: [email or web address] Stevie Killian MD Admit Provider Physician Attending Provider Specialty: Internal Medicine Address: [address] [place] [address], [id number] Email: [email or web address]STRU[employer] SITE CROSSING GUARD Dysphagia Treatment CONSTRUCTION SITE CROSSING GUARD Dysphagia Treatment Start: 04/20/24 10:40 Freq: Status: Active Protocol: Document 04/20/24 10:40 MA (Rec: 04/20/24 10:53 MA [id number]) Dysphagia Treatment Session Time Visit Start Time 10:20 Visit Stop Time 10:40 Total Visit Minutes 20 Visit Information Visit Number 2 Setting Assessment Location Acute Care Visit Type Note Type Treatment Note Patient Information Identification Type Name,ID Wristband Subjective Observations Pt awake, alert, reclined in bed upon ST entering room. Nursing reports Pt consumed meds whole with water with some mild coughing and ate some jello yesterday, however poor appetite. Pt pleasantly confused this date, however oriented to self and place. ST positioned Pt upright in bed utilizing bed alarms for PO trials. CONSTRUCTION SITE CROSSING GUARD CF also present in room. Treatment Liquids Trialed Thin (IDDSI 0) Solids Trialed Soft & Bite-sized (IDDSI 6), Regular (IDDSI 7) Administration Type Cup Consecutive Sips,Straw, Self-Feeding Oral Strategies Upright at 90 degrees, Alternate Liquids/Solids Treatment Activities Therapeutic PO trials of IDDSI 7 (regular solids), IDDSI 6 ( soft and bite sized solids) and thin liquids via cup and straw in order to determine safest and most efficient least restrictive diet, education with nursing The IDDSI Framework Protocol: IDDSI.1 Assessment Patient Response to Treatment Excellent Assessment of Improvement Pt consumed 1/2 peanut butter and jelly sandwich, 1 josé miguel cracker and about 4-5oz of thin water via cup/straw. Pt required mild feeding assistance at the beginning, however increased independence with cues. For solids, Pt exhibited occasional large bites requiring cues to take smaller bites, adequate bite, improved mastication time compared to yesterday with improvements in bolus formation and manipulation, timely ap transport, minimal oral stasis. Pt independently alternated liquids/solids x1 to assist with clearance, however benefited from frequent cues to alternate liquids/solids. No overt s/s of aspiration of penetration with solids, specifically coughing/choking. For thin water via straw, Pt exhibited adequte suction, good oral acceptance and containment, suspected loss of bolus resulting in premature spillage, 1x cough, 1x throat clear and clight increase in wet vocal quality. For thin water via cup, Pt exhibited 1x delayed cough, however clear vocal quality. ST recommends diet upgrade to IDDSI 7 (extra sauce/gravy) with IDDISI 0 ( thin liquids) -NO STRAWS with safe swallowing strategies in place such as: upright 90 degrees all meals, upright at least 30 minutes after meals, alternating liquids/solids, small bites, frequent oral care, distance supervision to cue Pt for encouragement when eating and to recall strategies secondary to cognitive impairment. ST educated nurse on strategies and upgrade. Recommendations Recommendations Upgrade Diet Order Liquids Order Thin (IDDSI 0) Diet Order Regular (IDDSI 7) Medication Recommendations As Tolerated Additional Dietary Needs No Straws,1:1 Assistance, Encourage to Self-Feed, Reminders to Use Strategies Aspiration Precautions Recommended Precautions Upright at 90 Degrees, Alternate Liquids/Solids,Small Bites/Sips Treatment Plan Appropriate for Continued Therapy No Therapy Recommendations ST recommends d/c from therapy at this time d/t Pt consuming safest and most efficient least restrictive diet. Dysphagia Goals LTG 1: Patient will consume safest and most efficient least restrictive diet with no clinical s/s of aspiration or dysphagia 100% of the time in order to meet primary nutrition/hydration needs.- MET STG 1: Pt will tolerate prescribed diet with <5% overt s/s of aspiration/dysphagia with use of compensatory swallowing strategies and minimal cues.- MET
--- NOTE | 2024-04-20 20:04 | PM.PN.1 ---
Subjective Subjective Interval history: Summary: The patient was admitted for volume depletion, AKA, and urinary tract infection with a concern for bowel obstruction on initial imaging. Overnight events: The creatinine is now improved to 1.98 today. Urine culture was not sent, blood cultures with gram positive organism but suspect contaminant as other is negative. I ordered him for PT/OT but [facility] he has not done well with PT in the past, after discussion with therapist today this order was cancelled. Subjective: No pain, or dyspnea. He feels well. Exam Vital Signs (past 8 hours): - 04/20/24 16:00 04/20/24 16:00 Temperature 97.9 F Pulse Rate 67 Respiratory Rate 18 Blood Pressure 150/89 H Pulse Oximetry 98 98 Oxygen Delivery Method Room Air Oxygen Flow Rate 0 Fraction of Inspired Oxygen 30 SaO2/FiO2 Ratio 313 Oxygen Delivery Method Room Air Oxygen Flow Rate 0 Narrative Exam Narrative: Gen: NAD, sitting comfortably in bed, appears well HEENT: Sclera are anicteric, head is normocephalic and atraumatic, trachea is midline. CV: RRR, no JVD Resp: clear to auscultation bilaterally, equal chest wall movement bilaterally Abd: soft, nontender, normoactive bowel sounds Ext: no edema, full range of motion Neuro: Cranial nerves II-XII grossly intact, no focal deficits. Seems to be at his baseline neurologically per daughter Skin: No erythema or ecchymosis Objective Labs 04/20/24 09:36 04/20/24 09:36 Labs: Laboratory Results - last 24 hr 04/20/24 09:36 WBC 7.9 RBC 4.14 L Hgb 12.1 L Hct 36.9 L MCV 89.1 MCH 29.2 MCHC 32.8 RDW 14.9 H Plt Count 276 Neut % (Auto) 65.7 Lymph % (Auto) 19.7 L [place] % (Auto) 8.0 Eos % (Auto) 6.1 H Baso % (Auto) 0.5 Neut # (Auto) 5200 Lymph # (Auto) 1600 [place] # (Auto) 600 Eos # (Auto) 500 H Baso # (Auto) 0 Sodium 143 Potassium 4.4 Chloride 115 H Carbon Dioxide 20 L BUN 33 H Creatinine 1.98 H Estimated GFR 34 L BUN/Creatinine Ratio 16.7 Glucose 76 L Calcium 8.6 Magnesium 1.5 L PFSH Medical History Hemiparesis affecting left side as late effect of cerebrovascular accident History of malignant neoplasm of prostate Prostate cancer Urinary incontinence, mixed Lower urinary tract symptoms (LUTS) Urinary incontinence without sensory awareness Family history of prostate cancer Prostate cancer CVA (cerebral vascular accident) Elevated PSA Male erectile disorder Prostate cancer Alcohol dependence Major depressive disorder, single episode, severe without psychotic features Hypercholesterolemia Hypertension Chronic low back pain Surgical History H/O aortic valve replacement Total knee replacement status H/O prostate biopsy H/O colectomy History of prostatectomy History of bilateral knee replacement Family History Father Cancer Alcohol abuse Social History marital status: details: 7 yrs ago number of children: 3 household members: none lives independently: Yes caregiver/support person: No housing: [facility] [place] pets and animals: No education level: high school occupational status: other current occupational exposures/hazards: No Smoking Status: Current some day smoker alcohol intake: current substance use type: marijuana during the past year weight has: remained stable well-balanced diet: daily or most days Type(s) of exercise: aerobic additional social history: Born and raised in [facility]. Grew up in an intact family. High school Education. 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 Assessment & Plan Assessment & Plan narrative: 1. Ileus, resolved. 2. PERI on CKD, present on admission and active. - b/l renal atrophy - his renal function deteriorated from stage 3 a year ago to likely stage 4 - acutely worsened in the absence of obstruction and in part likely due to ATN -volume depletion and a probable component of prerenal versus ATN. 3. likely contaminant blood culture, pending. 4. Hyperkalemia, present on admission and improved. 5. Acute Cystitis ruled out. 6. Acute metabolic encephalopathy 7. Hx of prostatectomy for carcinoma followed by incontinence, active. 8. GERD, stable. 9. 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 Depression / Hx of psychotic episodes / Alcohol use PLAN: Continue antibiotics today, but cultures are thus far unremarkable, and positive blood culture is more likely a contaminant. Suspect acute encephalopathy was due to his acute decline in renal function as these both appear improved today. Monitor creatinine, can stop IV fluids today. Monitor potassium, Mg low repleted with oral today. Dispo: possible return to [facility] tomorrow if continued improvement in renal function and no recurrent ileus, etc with continued tolerance of diet. Time-Based Coding :: [TOTAL MINUTES] spent with patient and on the chart (including review of chart, obtaining history, exam, reviewing outside data, placing orders, documenting exam and treatment plan, and counseling patient) on [DATE].
[2024-04-20] MEDS: MIRTAZAPINE 15 MG TABLET 30 MG PO (21:01)
[2024-04-20] MEDS: QUETIAPINE 25 MG TABLET 12.5 MG PO (21:01)
[2024-04-21] VITALS (11 sets, daily range): BP systolic 129–204; BP diastolic 54–110; PULSE 62–68; RESP 15–27; TEMP 36.1–36.4; O2SAT 93–98
[2024-04-21] MEDS: cefTRIAXone 1,000 MG in SODIUM CHLORIDE 0.9% 100 ML 200 MG IV (05:05)
[2024-04-21 08:47] LABS: Add Manual Diff / Slide Review NO; Basophils Absolute Auto 100 /uL (0-100); Eosinophils Absolute Auto 400 /uL (0-450); Eosinophils Percent Auto 5.4 % (2-4); Hematocrit 36.5 % (41-53); Hemoglobin 12.2 g/dL (13.5-17.5); Lymphocytes Absolute Auto 1700 /uL (1100-4500); Lymphocytes Percent Auto 21.3 % (25-40); Mean Corpuscular HGB Conc 33.3 % (30-36); Mean Corpuscular Hemoglobin 29.3 PG (26-34); Mean Corpuscular Volume 87.8 fL (80-100); Monocytes Absolute Auto 500 /uL (0-900); Monocytes Percent Auto 6.5 % (3-14); Neutrophils Absolute Auto 5300 /uL (1500-7000); Neutrophils Percent Auto 65.8 % (50-75); Platelet Count 309 X10^3/uL (150-400); Red Blood Cell Count 4.16 X10^6/uL (4.5-5.9); Red Cell Distribution Width 14.7 % (11.6-14.8)
[2024-04-21 09:05] LABS: BUN Creatinine Ratio 14.8 (6-22); Blood Urea Nitrogen 25 mg/dL (9-20); Calcium 8.8 mg/dL (8.4-10.2); Carbon Dioxide 24 mmol/L (22-32); Chloride 109 mmol/L (98-107); Estimated Glomerular Filt Rate 41 mL/min (>60); Glucose 84 mg/dL (80-110); HEMOLYSIS 16 (0-50); Magnesium 1.4 mg/dL (1.6-2.3); Potassium 3.9 mmol/L (3.4-5.1); Sodium 142 mmol/L (137-145)
[2024-04-21] MEDS: FLUoxetine 20 MG CAPSULE PO (09:17)
[2024-04-21] MEDS: METOPROLOL ER 25 MG TABLET PO (09:17)
[2024-04-21] MEDS: FERROUS SULFATE 325 MG TABLET PO (09:17)
[2024-04-21] MEDS: THIAMINE 100 MG TABLET PO (09:17)
[2024-04-21] MEDS: PANTOPRAZOLE DR 40 MG TABLET PO (09:17)
[2024-04-21] MEDS: SENNOSIDES 8.6 MG TABLET PO (09:17)
[2024-04-21] MEDS: APIXABAN 5 MG TABLET PO ×2 (09:17→22:00)
[2024-04-21] MEDS: MAGNESIUM CHLORIDE 64 MG TABLET 128 MG PO (11:20)
--- NOTE | 2024-04-21 18:26 | P.PN_ITS ---
Subjective Subjective Interval history: Summary: The patient was admitted for volume depletion, AKA, and urinary tract infection with a concern for bowel obstruction on initial imaging. Overnight events: The creatinine is now improved to 1.69 today. Urine culture was not sent, blood cultures with gram positive organism but suspect contaminant as other is negative. I ordered him for PT/OT but per [facility] he has not done well with PT in the past, after discussion with therapist today this order was cancelled. Subjective: No pain, or dyspnea. He feels well. Exam Vital Signs (past 8 hours): - 04/21/24 12:00 04/21/24 13:00 04/21/24 16:00 Temperature 97.0 F L 97.5 F L Pulse Rate 66 66 Respiratory Rate 15 19 Blood Pressure 133/70 170/86 H Pulse Oximetry 98 95 97 Oxygen Delivery Method Room Air Oxygen Flow Rate 0 0 0 04/21/24 17:00 Temperature Pulse Rate Respiratory Rate Blood Pressure Pulse Oximetry 95 Oxygen Delivery Method Room Air Oxygen Flow Rate 0 Fraction of Inspired Oxygen 30 SaO2/FiO2 Ratio 313 Oxygen Delivery Method Room Air Oxygen Flow Rate 0 Narrative Exam Narrative: Gen: NAD, sitting comfortably in bed, appears well HEENT: Sclera are anicteric, head is normocephalic and atraumatic, trachea is midline. CV: RRR, no JVD Resp: clear to auscultation bilaterally, equal chest wall movement bilaterally Abd: soft, nontender, normoactive bowel sounds Ext: no edema, full range of motion Neuro: Cranial nerves II-XII grossly intact, no focal deficits. Seems to be at his baseline neurologically per daughter Skin: No erythema or ecchymosis Objective Labs 04/21/24 08:30 04/21/24 08:30 Labs: Laboratory Results - last 24 hr 04/21/24 08:30 WBC 8.0 RBC 4.16 L Hgb 12.2 L Hct 36.5 L MCV 87.8 MCH 29.3 MCHC 33.3 RDW 14.7 Plt Count 309 Neut % (Auto) 65.8 Lymph % (Auto) 21.3 L [place] % (Auto) 6.5 Eos % (Auto) 5.4 H Baso % (Auto) 1.0 Neut # (Auto) 5300 Lymph # (Auto) 1700 [place] # (Auto) 500 Eos # (Auto) 400 Baso # (Auto) 100 Sodium 142 Potassium 3.9 Chloride 109 H Carbon Dioxide 24 BUN 25 H Creatinine 1.69 H Estimated GFR 41 L BUN/Creatinine Ratio 14.8 Glucose 84 Calcium 8.8 Magnesium 1.4 L PFSH Medical History Hemiparesis affecting left side as late effect of cerebrovascular accident History of malignant neoplasm of prostate Prostate cancer Urinary incontinence, mixed Lower urinary tract symptoms (LUTS) Urinary incontinence without sensory awareness Family history of prostate cancer Prostate cancer CVA (cerebral vascular accident) Elevated PSA Male erectile disorder Prostate cancer Alcohol dependence Major depressive disorder, single episode, severe without psychotic features Hypercholesterolemia Hypertension Chronic low back pain Surgical History H/O aortic valve replacement Total knee replacement status H/O prostate biopsy H/O colectomy History of prostatectomy History of bilateral knee replacement Family History Father Cancer Alcohol abuse Social History marital status: details: 7 yrs ago number of children: 3 household members: none lives independently: Yes caregiver/support person: No housing: condominium pets and animals: No education level: high school occupational status: other current occupational exposures/hazards: No Smoking Status: Current some day smoker alcohol intake: current substance use type: marijuana during the past year weight has: remained stable well-balanced diet: daily or most days Type(s) of exercise: aerobic additional social history: Born and raised in [facility]. Grew up in an intact family. High school Education. 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 Assessment & Plan Assessment & Plan narrative: 1. Ileus, resolved. 2. PERI on CKD, present on admission and active. - b/l renal atrophy - his renal function deteriorated from stage 3 a year ago to likely stage 4 - acutely worsened in the absence of obstruction and in part likely due to ATN -volume depletion and a probable component of prerenal versus ATN. 3. likely contaminant blood culture 4. Hyperkalemia, present on admission and improved. 5. Acute Cystitis ruled out. 6. Acute metabolic encephalopathy 7. Hx of prostatectomy for carcinoma followed by incontinence, active. 8. GERD, stable. 9. 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 Depression / Hx of psychotic episodes / Alcohol use PLAN: Continue antibiotics today, but cultures are thus far unremarkable, and positive blood culture is more likely a contaminant. Can discharge without antibiotics. Plan for [facility] tomorrow. Suspect acute encephalopathy was due to his acute decline in renal function as these both appear improved today. He has continued to improve without fluids over the course of today as well. Monitor creatinine Monitor potassium, Mg low repleted with oral today. Dispo: possible return to [facility] tomorrow if continued improvement in renal function and no recurrent ileus, etc with continued tolerance of diet. Time-Based Coding :: [TOTAL MINUTES] spent with patient and on the chart (including review of chart, obtaining history, exam, reviewing outside data, placing orders, documenting exam and treatment plan, and counseling patient) on [DATE].
[2024-04-21] MEDS: MIRTAZAPINE 15 MG TABLET 30 MG PO (22:00)
[2024-04-21] MEDS: QUETIAPINE 25 MG TABLET 12.5 MG PO (22:00)
[2024-04-22 05:10] VITALS: BP 129/85; PULSE 66; RESP 29; TEMP 35.8; O2SAT 98
[2024-04-22 05:24] LABS: Add Manual Diff / Slide Review NO; Basophils Absolute Auto 100 /uL (0-100); Basophils Percent Auto 1.2 % (0-2); Eosinophils Absolute Auto 500 /uL (0-450); Hematocrit 36.6 % (41-53); Hemoglobin 12.1 g/dL (13.5-17.5); Lymphocytes Absolute Auto 2500 /uL (1100-4500); Lymphocytes Percent Auto 30.3 % (25-40); Mean Corpuscular HGB Conc 33.2 % (30-36); Mean Corpuscular Volume 87.3 fL (80-100); Monocytes Absolute Auto 500 /uL (0-900); Monocytes Percent Auto 6.6 % (3-14); Neutrophils Absolute Auto 4600 /uL (1500-7000); Neutrophils Percent Auto 55.9 % (50-75); Platelet Count 312 X10^3/uL (150-400); Red Blood Cell Count 4.19 X10^6/uL (4.5-5.9); Red Cell Distribution Width 14.2 % (11.6-14.8); White Blood Cell Count 8.2 X10^3/uL (4.5-11.0)
[2024-04-22 05:40] LABS: BUN Creatinine Ratio 13.3 (6-22); Blood Urea Nitrogen 22 mg/dL (9-20); Calcium 8.7 mg/dL (8.4-10.2); Carbon Dioxide 22 mmol/L (22-32); Chloride 109 mmol/L (98-107); Estimated Glomerular Filt Rate 43 mL/min (>60); Glucose 88 mg/dL (80-110); HEMOLYSIS 15 (0-50); Magnesium 1.5 mg/dL (1.6-2.3); Potassium 3.9 mmol/L (3.4-5.1); Sodium 139 mmol/L (137-145)
[2024-04-22] MEDS: cefTRIAXone 1,000 MG in SODIUM CHLORIDE 0.9% 100 ML 200 MG IV (06:05)
[2024-04-22 09:00] VITALS: BP 143/87; PULSE 64; RESP 19; TEMP 35.9; O2SAT 94
[2024-04-22] MEDS: SENNOSIDES 8.6 MG TABLET PO (10:28)
[2024-04-22] MEDS: PANTOPRAZOLE DR 40 MG TABLET PO (10:28)
[2024-04-22 10:29] VITALS: BP 143/87; PULSE 64
[2024-04-22] MEDS: METOPROLOL ER 25 MG TABLET PO (10:29)
[2024-04-22] MEDS: FERROUS SULFATE 325 MG TABLET PO (10:29)
[2024-04-22] MEDS: THIAMINE 100 MG TABLET PO (10:29)
[2024-04-22] MEDS: FLUoxetine 20 MG CAPSULE PO (10:29)
[2024-04-22] MEDS: APIXABAN 5 MG TABLET PO (10:29)
--- NOTE | 2024-04-22 10:29 | PM.DS.1 ---
History of Present Illness History of Present Illness Date Patient Seen: 04/22/24 Time Patient Seen: 10:29 Chief complaint: Altered mental status Narrative: From night doctor: 78 y/o resident of [facility] with PMH of depression with psychotic features, alcoholism, Rt MCA CVA with residual Lt hemiparesis, prostatectomy for carcinoma followed by incontinence, TAVR, CKD stage 4, HTN, chronic LBP who presented with altered mental status. Workup showing acute on chronic renal failure, UTI and SBO. He does have a history of partial Rt hemicolectomy. CT - Borderline dilated small bowel loops up to 2.5 cm in the central-lower abdomen with a gradual transition point in the mid abdomen He is unable to provide any meaningful history, likely due to acute encephalopathy. Upon admission he had explosive vomiting and had NGT placed for low intermittent suction. Discussed with surgeon, Dr Rubio who will consult and possibly attempt Gastrografin small-bowel follow-through. S: The patient is awake and calm. He was cognitive impairment. His sister is here, he identifies her as his mother. He denies any pain. Discharge Providers Provider Date of admission: 04/18/24 02:09 Discharge Date: 04/22/24 Primary care physician: Marlon Fabian MD Consults: 04/18/24 00:11 Consult to Speech Therapy Evaluate & Treat Comment: Physician Instructions: Evaluate and treat 04/18/24 12:00 Consult to General Surgery Routine Comment: Consulting Provider: Rajinder Rubio Reason for consultation: SBO Discharge provider: Ant Jackson DO Summary Hospital Course Discharge Diagnosis: 1. Ileus, resolved. 2. PERI on CKD 3. likely contaminant blood culture 4. Hyperkalemia 5. Acute Cystitis ruled out. 6. Acute metabolic encephalopathy 7. Hx of prostatectomy for carcinoma followed by incontinence 8. GERD 9. 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 Depression / Hx of psychotic episodes / Alcohol use Hospital Course: This is a 78 year old male with PMH of chronic cognitive impairment, paroxysmal afib, history of TAVR, HTN, prior CVA, depression, prior EtOH use who was admitted with PERI likely secondary to partial bowel obstruction. He was given IV fluids and conservative management with ultimate resolution of obstruction noted on gastrograffin challenge. His renal function continued to improve, CT scan showed no evidence of obstruction. Initially he was treated for possible acute cystitis and bacteremia. However UA showed no evidence of infection and blood cultures ultimately resulted with contaminant skin bacteria. He had no leukocytosis with fluids, and once cultures finalized antibiotics can be discontinued though this was not until the day of discharge. PT and OT were consulted, however patient has not worked with therapies well in the past at [facility], and discussed with therapist here whom recommended no evaluation here. No changes to his home medications are recommended on discharge, and cr improved from 2.9 on admit to 1.6 on the day of discharge. It continued to improve without IV fluids on the last two hospital days. Time Spent with Patient Time spent: Greater than 30 minutes Exam Vital Signs (past 8 hours): - 04/22/24 05:10 04/22/24 09:00 Temperature 96.5 F L 96.6 F L Pulse Rate 66 64 Respiratory Rate 29 H 19 Blood Pressure 129/85 143/87 H Pulse Oximetry 98 94 Oxygen Flow Rate 0 0 Fraction of Inspired Oxygen 30 SaO2/FiO2 Ratio 313 Oxygen Delivery Method Room Air Oxygen Flow Rate 0 Narrative Exam Narrative: Gen: NAD, sitting comfortably in bed, appears well HEENT: Sclera are anicteric, head is normocephalic and atraumatic, trachea is midline. CV: RRR, no JVD Resp: clear to auscultation bilaterally, equal chest wall movement bilaterally Abd: soft, nontender, normoactive bowel sounds Ext: no edema, full range of motion Neuro: Cranial nerves II-XII grossly intact, no focal deficits. Seems to be at his baseline neurologically per daughter Skin: No erythema or ecchymosis Objective Labs 04/22/24 04:51 04/22/24 04:51 Labs: Laboratory Results - last 24 hr 04/22/24 04:51 WBC 8.2 RBC 4.19 L Hgb 12.1 L Hct 36.6 L MCV 87.3 MCH 29.0 MCHC 33.2 RDW 14.2 Plt Count 312 Neut % (Auto) 55.9 Lymph % (Auto) 30.3 [place] % (Auto) 6.6 Eos % (Auto) 6.0 H Baso % (Auto) 1.2 Neut # (Auto) 4600 Lymph # (Auto) 2500 [place] # (Auto) 500 Eos # (Auto) 500 H Baso # (Auto) 100 Sodium 139 Potassium 3.9 Chloride 109 H Carbon Dioxide 22 BUN 22 H Creatinine 1.65 H Estimated GFR 43 L BUN/Creatinine Ratio 13.3 Glucose 88 Calcium 8.7 Magnesium 1.5 L PFSH Medical History Hemiparesis affecting left side as late effect of cerebrovascular accident History of malignant neoplasm of prostate Prostate cancer Urinary incontinence, mixed Lower urinary tract symptoms (LUTS) Urinary incontinence without sensory awareness Family history of prostate cancer Prostate cancer CVA (cerebral vascular accident) Elevated PSA Male erectile disorder Prostate cancer Alcohol dependence Major depressive disorder, single episode, severe without psychotic features Hypercholesterolemia Hypertension Chronic low back pain Surgical History H/O aortic valve replacement Total knee replacement status H/O prostate biopsy H/O colectomy History of prostatectomy History of bilateral knee replacement Family History Father Cancer Alcohol abuse Social History marital status: details: 7 yrs ago number of children: 3 household members: none lives independently: Yes caregiver/support person: No housing: condominium pets and animals: No education level: high school occupational status: other current occupational exposures/hazards: No Smoking Status: Current some day smoker alcohol intake: current substance use type: marijuana during the past year weight has: remained stable well-balanced diet: daily or most days Type(s) of exercise: aerobic additional social history: Born and raised in [place]. Grew up in an intact family. High school Education. 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 Discharge Plan Discharge Plan Patient Disposition: Assisted Living Transfer to: [facility] Living Provider Discharge Comment: You were admitted to the hospital with bowel obstruction and PERI likely due to dehydration. Urine cultures and blood cultures negative, though you were treated with antibiotics while in the hospital until cultures were finalized. No changes to home medications needed at this time. Discharge orders & Medications Discharge Orders: Discharge (Order); Ordered 04/22/24 Ordered By: Ant Jackson Prescriptions: Continued biosooth 1 tab PO DAILY ferrous sulfate [FeroSul] 325 mg (65 mg iron) tablet 325 mg PO DAILY multivitamin Tablet 1 tab PO DAILY Qty: 0 vitamin B complex [B Complex-Vitamin B12] 1 EACH tablet 1 tab PO QDAY Qty: 0 triamcinolone acetonide 55 mcg aerosol,spray 1 spray NASAL DAILY Rx Instructions: administer into each nostril fluoxetine [Prozac] 20 mg capsule 20 mg PO DAILY Qty: 90 3RF Rx Instructions: Take with food atorvastatin [Lipitor] 20 mg tablet 40 mg PO HS Qty: 0 metoprolol succinate 25 mg tablet extended release 24 hr 25 mg PO DAILY Qty: 30 0RF alpha lipoic acid 200 mg capsule 200 mg PO DAILY Eliquis 5 mg tablet 5 mg PO BID Fish Oil 340-1,000 mg capsule 1 cap PO DAILY mirtazapine 30 mg tablet 30 mg PO BEDTIME pantoprazole 40 mg tablet,delayed release (DR/EC) 40 mg PO DAILY senna 8.6 mg capsule 8.6 mg PO DAILY Follow up/Referrals: Marlon Fabian MD [Primary Care Provider] - Discharge Health Status Multidrug resistant organism: No MDRO Precautions: Letts Diet/Activity/Treatments Diet: Diet as Tolerated Liquid consistency: Normal/Thin Food texture: Regular Activity: As tolerated no restrictions. Visit Report/Discharge Packet Stand Alone Forms: Patient Portal/API, Stroke Signs & Symptoms Discharge Data Primary Care Provider: Marlon Fabian
[2024-04-22] MEDS: MAGNESIUM CHLORIDE 64 MG TABLET 128 MG PO (10:30)
--- NOTE | 2024-04-22 14:29 | CM.DPNOTE ---
DC Note Patient discharged back to [facility] today; patient and family aware and agreeable to plan after conversation with Dr Jackson this morning. Updated [facility] at [place], DC Summary and med list faxed. Java Xml DeveloperTristan, picked patient up at approx 1130. Plan: Discharge back to [facility] via wheelchair van. IVONNE
== END 2024-04-22 11:36 | DRG 388 ==
LOC: ED 23:06 → AC 04-18 02:10
PROVIDERS: Internal Medicine; Admitting Provider Internal Medicine; Emergency Provider Emergency Medicine; PCP Family Medicine; Referring Provider Emergency Medicine; Visit Provider Internal Medicine
DX: K56.600 Partial intestinal obstruction, unspecified as to cause (principal); G93.41 Metabolic encephalopathy; I69.354 Hemiplegia and hemiparesis following cerebral infarction affecting left non-dominant side; N17.9 Acute kidney failure, unspecified; N18.4 Chronic kidney disease, stage 4 (severe); I12.9 Hypertensive chronic kidney disease with stage 1 through stage 4 chronic kidney disease, or unspecified chronic kidney disease; F17.200 Nicotine dependence, unspecified, uncomplicated; G89.29 Other chronic pain; M54.50 Low back pain, unspecified; N39.46 Mixed incontinence; K21.9 Gastro-esophageal reflux disease without esophagitis; E78.00 Pure hypercholesterolemia, unspecified; I48.0 Paroxysmal atrial fibrillation; K56.7 Ileus, unspecified; E87.5 Hyperkalemia; E86.0 Dehydration; F32.A Depression, unspecified; F10.90 Alcohol use, unspecified, uncomplicated; Z85.46 Personal history of malignant neoplasm of prostate; Z95.4 Presence of other heart-valve replacement; Z79.01 Long term (current) use of anticoagulants; Z66 Do not resuscitate; Z90.49 Acquired absence of other specified parts of digestive tract
CPT/HCPCS: 36415; 51701; 70450; 71045; 74018; 74019; 74176; 80048; 80053; 80305; 81001; 82140; 82962; 83605; 83735; 83880; 85025; 87040; 87077; 87154; 92526; 92610; 93005; 94760; 96361; 96365; 99232; 99285; 99291; J0696; J1171; J2060; J2405; J2470; J7050